=== PATIENT | female | born 1960 | race Caucasian/White ===

== ENCOUNTER 2018-09-02 21:58 | Emergency (ER) | payer MEDICARE ==
--- OUTSIDE RECORDS SUMMARY | 2018-09-02 22:01 | XMS REPORT ---
:1960 Author Organization eClinicalWorks Care Team Providers Name Role Phone Mcbride, Na Provider Role Unavailable Allergies, Adverse Reactions, Alerts Substance Reaction Event Type codeine Info Not Available Drug Allergy Keflex Info Not Available Drug Allergy Iodine Info Not Available Drug Allergy Bactrim DS Info Not Available Drug Allergy Amoxicillin Info Not Available Drug Allergy Problems Problem Type Condition Code Onset Dates Condition Status Problem Benign essential HTN I10 Active Problem Surgical menopause N95.8 Active Problem Depression with anxiety F41.8 Active Problem Pituitary adenoma D35.2 Active Problem Encounter for long-term current use Z79.899 Active of medication Problem Hypokalemia E87.6 Active Problem Osteoarthritis of multiple joints M15.9 Active Problem Allergic rhinitis, seasonal J30.2 Active Problem Mild memory disturbance R41.3 Active Problem Carpal tunnel syndrome G56.00 Active Assessment Primary osteoarthritis involving M15.0 Active multiple joints Assessment Mild memory disturbance R41.3 Active Assessment Encounter for long-term current use Z79.899 Active of medication Assessment Hypokalemia E87.6 Active Assessment Seizure disorder G40.909 Active Assessment Benign essential HTN I10 Active Assessment Depression with anxiety F41.8 Active Problem Primary osteoarthritis involving M15.0 Active multiple joints Assessment Pituitary adenoma D35.2 Active Problem Seizure disorder G40.909 Active Medications Medication Code Code Instructions Start End Status Dosage System Date Lodine [facility] 29939971346 400 MG Orally February Inactive 1 tablet Twice a day food 2017 Xanax [facility] 40310856468 0.5 MG Orally Inactive 1 tablet Twice a day Propranolol HCl [facility] 84163175481 40 MG Orally at Active 0.5 hs tablet Tiazac [facility] 78729189359 300 MG Orally February Active 1 capsule Once a day 2017 Keppra [facility] 40477046121 750 MG Orally Active 1 tablet Twice a day Zoloft [facility] 19421036830 100 MG Orally Active 1 tablet Once a day Spironolactone [facility] 96242140212 50 MG Orally Active 1 tablet twice a day with food Tiazac [facility] 64212635443 360 MG Orally Inactive 1 capsule Once a day Results No Known Results Summary Purpose eClinicalWorks Submission
--- OUTSIDE RECORDS SUMMARY | 2018-09-02 22:01 | XMS REPORT ---
:1960 Author Organization e[employer]Works Care Team Providers Name Role Phone Mcbride, Na Provider Role Unavailable Allergies No Known Allergies Problems Problem Type Condition Code Onset Dates Condition Status Problem Benign essential HTN I10 Active Problem Surgical menopause N95.8 Active Problem Depression with anxiety F41.8 Active Problem Primary osteoarthritis involving M15.0 Active multiple joints Problem Seizure disorder G40.909 Active Problem Pituitary adenoma D35.2 Active Problem Encounter for long-term current use Z79.899 Active of medication Problem Hypokalemia E87.6 Active Problem Osteoarthritis of multiple joints M15.9 Active Problem Allergic rhinitis, seasonal J30.2 Active Problem Mild memory disturbance R41.3 Active Problem Carpal tunnel syndrome G56.00 Active Medications No Known Medications Results No Known Results Summary Purpose eClinicalWorks Submission
--- OUTSIDE RECORDS SUMMARY | 2018-09-02 22:01 | XMS REPORT ---
[...] Problem Carpal tunnel syndrome G56.00 Active Medications Medication Code System Code Instructions Start End Date Status Dosage Date [facility] [id number] 180 MG Orally May 13, Active 1 capsule Once a day 2018 Results No Known Results Summary Purpose [employer] Submission
--- OUTSIDE RECORDS SUMMARY | 2018-09-02 22:01 | XMS REPORT ---
[...] Problem Carpal tunnel syndrome G56.00 Active Assessment Seizure disorder G40.909 Active Problem Primary osteoarthritis involving M15.0 Active multiple joints Problem Seizure disorder G40.909 Active Medications Medication Code System Code Instructions Start Date End Date Status Dosage [facility] 19108044088 750 MG Orally Active 1 tablet Twice a day Results No Known Results Summary Purpose eClinicalWorks Submission
--- OUTSIDE RECORDS SUMMARY | 2018-09-02 22:01 | XMS REPORT ---
[...] Problem Carpal tunnel syndrome G56.00 Active Assessment Depression with anxiety F41.8 Active Problem Primary osteoarthritis involving M15.0 Active multiple joints Problem Seizure disorder G40.909 Active Medications Medication Code System Code Instructions Start End Date Status Dosage Date Tiazac [facility] 16522207224 180 MG Orally May 13, Active 1 capsule Once a day 2017 Zoloft [facility] 88715761651 100 MG Orally Active 1 to 1/2 Once a day tablet Results No Known Results Summary Purpose eClinicalWorks Submission
--- OUTSIDE RECORDS SUMMARY | 2018-09-02 22:01 | XMS REPORT ---
[...] Instructions Start Date End Date Status Dosage Kera [facility] 29164651793 500 MG Orally Active 1 tablet Twice a day Results No Known Results Summary Purpose eClinicalWorks Submission
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
[2018-09-02] MEDS ORDERED: POTASSIUM 25 MEQ EFFERV TAB ONE (22:34)
[2018-09-02] MEDS ORDERED: KCL 20 MEQ/100 mL IVPB 20 MEQ/100 ML BAG IV ONE (22:34)
[2018-09-02] MEDS ORDERED: NA CHLORIDE 0.9% 250 ML ONE (22:35)
[2018-09-03] MEDS ORDERED: KCL 20 MEQ/100 mL IVPB 20 MEQ/100 ML BAG IV ONE (01:47)
[2018-09-03] MEDS ORDERED: NA CHLORIDE 0.9% 250 ML ONE (01:47)
[2018-09-03] MEDS ORDERED: POTASSIUM CL SA 10 MEQ TAB PO ONE (06:54)
[2018-09-03] MEDS ORDERED: MAGNESIUM SULFATE 1 gm IVPB 1 GM/100 ML BAG IV ONE (06:57)
--- NOTE | 2018-09-03 09:02 | EDPHYS ---
Physician Documentation [facility] Name: Mirna Celestin Age: 57 yrs Sex: Female : 1960 Arrival Date: 09/02/2018 Time: 22:00 Bed 15 Private MD: ED Physician Aurelio Doss HPI: 09/02 22:24 This 57 yrs old Female presents to ER via Wheelchair with complaints of pkl Abnormal Labs. 22:24 Patient had blood tests done earlier today. Was told her K+ level was 2.7 and to go to pkl ER to replace her K+.. Historical: - Allergies: 22:19 Codeine; jd3 22:19 Keflex; jd3 22:19 PENICILLINS; jd3 22:19 Talwin; jd3 22:19 Sulfa (Sulfonamide Antibiotics); jd3 - Home Meds: 22:19 Vitamin D Oral [Active]; sertraline 100 mg oral tab 1.5 tabs once daily [Active]; jd3 levetiracetam 500 mg oral tab 1 tab 2 times per day [Active]; diltiazem HCl 180 mg Oral cpER [Active]; Allergy Medication oral oral [Active]; - PMHx: 22:19 Anxiety; tumor on pituitary; Hypertension; Arthritis; Seizures; jd3 - PSHx: 22:19 bilateral wrist sx; jd3 - Immunization history:: Adult Immunizations up to date. - Social history:: Smoking status: Patient/guardian denies using tobacco. - Ebola Screening: : Patient negative for fever greater than or equal to 101.5 degrees Fahrenheit, and additional compatible Ebola Virus Disease symptoms. ROS: 22:24 Eyes: Negative for injury, pain, redness, and discharge, ENT: Negative for injury, pkl pain, and discharge, Neck: Negative for injury, pain, and swelling, Cardiovascular: Negative for chest pain, palpitations, and edema, Respiratory: Negative for shortness of breath, cough, wheezing, and pleuritic chest pain, Abdomen/GI: Negative for abdominal pain, nausea, vomiting, diarrhea, and constipation, Back: Negative for injury and pain, : Negative for injury, bleeding, discharge, and swelling, MS/Extremity: Negative for injury and deformity, Skin: Negative for injury, rash, and discoloration, Neuro: Negative for headache, weakness, numbness, tingling, and seizure. Exam: 22:24 Head/Face: Normocephalic, atraumatic. Eyes: Pupils equal round and reactive to light, pkl extra-ocular motions intact. Lids and lashes normal. Conjunctiva and sclera are non-icteric and not injected. Cornea within normal limits. Periorbital areas with no swelling, redness, or edema. ENT: Nares patent. No nasal discharge, no septal abnormalities noted. Tympanic membranes are normal and external auditory canals are clear. Oropharynx with no redness, swelling, or masses, exudates, or evidence of obstruction, uvula midline. Mucous membranes moist. Neck: Trachea midline, no thyromegaly or masses palpated, and no cervical lymphadenopathy. Supple, full range of motion without nuchal rigidity, or vertebral point tenderness. No Meningismus. Chest/axilla: Normal chest wall appearance and motion. Nontender with no deformity. No lesions are appreciated. Cardiovascular: Regular rate and rhythm with a normal S1 and S2. No gallops, murmurs, or rubs. Normal PMI, no JVD. No pulse deficits. Respiratory: Lungs have equal breath sounds bilaterally, clear to auscultation and percussion. No rales, rhonchi or wheezes noted. No increased work of breathing, no retractions or nasal flaring. Abdomen/GI: Soft, non-tender, with normal bowel sounds. No distension or tympany. No guarding or rebound. No evidence of tenderness throughout. Back: No spinal tenderness. No costovertebral tenderness. Full range of motion. Skin: Warm, dry with normal turgor. Normal color with no rashes, no lesions, and no evidence of cellulitis. MS/ Extremity: Pulses equal, no cyanosis. Neurovascular intact. Full, normal range of motion. Neuro: Awake and alert, GCS 15, oriented to person, place, time, and situation. Cranial nerves II-XII grossly intact. Motor strength 5/5 in all extremities. Sensory grossly intact. Cerebellar exam normal. Normal gait. Vital Signs: 22:20 BP 108 / 77; Pulse 55; Resp 18 S; Temp 98.8(O); Pulse Ox 97% on R/A; Weight 78.93 kg jd3 (R); Height 5 ft. 3 in. (160.02 cm) (R); Pain 0/10; 23:24 BP 116 / 72; Pulse 50; Resp 16 S; Pulse Ox 95% on R/A; Pain 0/10; jd3 09/03 00:17 BP 119 / 76 LA Supine (auto/lg); Pulse 45 MON; Resp 14 S; Pulse Ox 96% on R/A; ds4 01:11 BP 118 / 68 LA Supine (auto/lg); Pulse 47 MON; Resp 14 S; Pulse Ox 96% on R/A; ds4 02:10 BP 120 / 53 LA Supine (auto/reg); Pulse 46 MON; Resp 14 S; Pulse Ox 96% on R/A; ds4 02:38 BP 121 / 60; Pulse 47; Resp 14 S; Pulse Ox 95% on R/A; bb 03:27 BP 121 / 57; Pulse 46; Resp 18 S; Pulse Ox 94% on R/A; bb 03:49 BP 122 / 62 LA Supine (auto/reg); Pulse 47 MON; Resp 18 S; Pulse Ox 96% on R/A; ds4 04:15 BP 124 / 65; Pulse 47; Resp 18 S; Pulse Ox 95% on R/A; bb 06:30 BP 124 / 63; Pulse 43; Resp 18 S; Pulse Ox 99% on R/A; Pain 0/10; cc3 07:30 BP 146 / 67; Pulse 43; Resp 16 S; Pulse Ox 97% on R/A; Pain 0/10; aa5 08:30 BP 128 / 62; Pulse 48; Resp 16 S; Pulse Ox 99% on R/A; Pain 0/10; aa5 09/02 22:20 Body Mass Index 30.82 (78.93 kg, 160.02 cm) jd3 MDM: 09/02 22:02 Patient medically screened. pkl 09/03 08:58 Differential Diagnosis hypokalemia, weakness. Data reviewed: vital signs, nurses notes, international affairs vice president test result(s), and as a result, I will discharge patient. Counseling: I had a detailed discussion with the patient and/or guardian regarding: the historical points, exam findings, and any diagnostic results supporting the discharge/admit diagnosis, lab results, the need for outpatient follow up, to return to the emergency department if symptoms worsen or persist or if there are any questions or concerns that arise at home. Special discussion: I discussed with the patient/guardian in detail that at this point there is no indication for admission to the hospital. It is understood, however, that if the symptoms persist or worsen the patient needs to return immediately for re-evaluation. Based on the history and exam findings, there is no indication for further emergent testing or inpatient evaluation. I discussed with the patient/guardian the need to see the primary care provider for further evaluation of the symptoms. ED course: Pt with longstanding hypokalemia, for years, recently taken off of spironolactone, doesn't take potassium at home, potassium checked several times by assistant shift supervisor, hospitalist consulted, did not want to admit when asked by Dr. Mukherjee, reassessed by me, states feels much better, weakness has improved, can tell when potassium is low and feels better now, is ambulating to bathroom, potassium at last check 2.4, but has been given multiple rounds of IV and PO potassium as well as magnesium, is asymptomatic, and after long discussion with patient, will dc home with oral potassium prescription and pcp f/u this week for repeat K+.. 09/03 01:01 Order name: Potassium; Complete Time: 01:36 bb 09/03 03:49 Order name: Potassium; Complete Time: 04:56 ds4 09/03 04:59 Order name: Potassium; Complete Time: 06:34 ds4 09/03 06:41 Order name: Potassium; Complete Time: 08:50 bb Administered Medications: 09/02 22:41 Drug: Potassium Chloride 20 mEq Route: IV; Rate: calculated rate; Site: right jd3 antecubital; 09/03 00:50 Follow up: IV Status: Completed infusion; IV Intake: 100ml 09/02 22:41 Drug: Potassium Effervescent Tablet 50 mEq Route: PO; jd3 09/03 00:50 Follow up: Response: No adverse reaction bb 09/02 22:41 Drug: NS 0.9% 250 ml Route: IV; Rate: calculated rate; Site: right antecubital; bb 09/03 00:54 Follow up: IV Status: Completed infusion; IV Intake: 250ml bb 01:39 Drug: Potassium Chloride 20 mEq Route: IV; Rate: calculated rate; Site: right bb antecubital; 03:45 Follow up: IV Status: Completed infusion; IV Intake: 100ml bb 01:39 Drug: NS 0.9% 250 ml Route: IV; Rate: calculated rate; Site: right antecubital; bb 03:45 Follow up: IV Status: Completed infusion; IV Intake: 200ml bb 06:50 Drug: Potassium Chloride 20 mEq Route: PO; cc3 06:57 Drug: Magnesium Sulfate 1 grams Route: IVPB; Infused Over: 1 hrs; Site: right cc3 antecubital; Disposition: 09/03/18 09:01 Discharged to Home. Impression: Hypokalemia. - Condition is Stable. - Discharge Instructions: Potassium Content of Foods, Hypokalemia. - Prescriptions for Potassium Chloride 10 mEq Oral Capsule, Sustained Release - take 1 tablet by ORAL route every 12 hours; 10 tablet. - Medication Reconciliation Form, Thank You Letter, Antibiotic Education, Prescription Opioid Use form. - Follow up: Private Physician; When: 5 - 6 days; Reason: Recheck today's complaints, Re-evaluation by your physician. - Problem is chronic. - Symptoms have improved. Signatures: Dispatcher [employer] EDMS Maximo Mukherjee MD MD pkl Sara Barbosa RN RN bb Aurelio Doss MD MD rn Calderon, Audri, RN RN aa5 Neal Moseley, AUTOMOTIVE TEACHER AUTOMOTIVE TEACHER pm1 [place] Neri RN RN jd3 Deepika Mcleod cc3 Corrections: (The following items were deleted from the chart) 09:58 09:01 09/03/2018 09:01 Discharged to Home. Impression: Hypokalemia. Condition is aa5 Stable. Forms are Medication Reconciliation Form, Thank You Letter, Antibiotic Education, Prescription Opioid Use. Follow up: Private Physician; When: 5 - 6 days; Reason: Recheck today's complaints, Re-evaluation by your physician. Problem is chronic. Symptoms have improved. rn
--- NOTE | 2018-09-03 09:02 | ER ---
Nurse's Notes [facility] Name: Mirna Celestin Age: 57 yrs Sex: Female : 1960 Arrival Date: 09/02/2018 Time: 22:00 Bed 15 Private MD: Diagnosis: Hypokalemia Presentation: 09/02 22:14 Presenting complaint: Patient states: "I was called by my doctors office with a low jd3 potassoim level of 2.??.". Transition of care: patient was not received from another setting of care. Onset of symptoms was September 02, 2018. Risk Assessment: Do you want to hurt yourself or someone else? Patient reports no desire to harm self or others. Initial Sepsis Screen: Does the patient meet any 2 criteria? No. Patient's initial sepsis screen is negative. Does the patient have a suspected source of infection? No. Patient's initial sepsis screen is negative. Care prior to arrival: None. 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 - Social history:: Smoking status: Patient/guardian denies using tobacco. - Ebola Screening: : Patient negative for fever greater than or equal to 101.5 degrees Fahrenheit, and additional compatible Ebola Virus Disease symptoms. Screenin:23 Abuse screen: Denies threats or abuse. Nutritional screening: No deficits noted. jd3 Tuberculosis screening: No symptoms or risk factors identified. Fall Risk Ambulatory Aid- Crutches/Cane/Walker (15 pts). Gait- Weak (10 pts.). Mental Status- Oriented to own ability (0 pts). Total Damon Fall Scale indicates Low Risk Score (25-44 pts). Fall prevention measures have been instituted. Side Rails Up X 2 Placed close to Nursing Station Frequent Obs/Assesments occuring Family Present and informed to notify staff if they need to leave bedside. Assessment: 22:21 General: Appears in no apparent distress. comfortable, Behavior is calm, cooperative, jd3 appropriate for age. Pain: Denies pain. Neuro: Level of Consciousness is awake, alert, obeys commands, Oriented to person, place, time, situation. Cardiovascular: Denies chest pain, Capillary refill < 3 seconds Patient's skin is warm and dry. Respiratory: Airway is patent Respiratory effort is even, unlabored, Respiratory pattern is regular, symmetrical, Denies cough, shortness of breath. GI: No signs and/or symptoms were reported involving the gastrointestinal system. : No signs and/or symptoms were reported regarding the genitourinary system. EENT: No signs and/or symptoms were reported regarding the EENT system. Derm: Skin is intact, Skin is dry, Skin is normal, Skin temperature is warm. Musculoskeletal: Circulation, motion, and sensation intact. Range of motion: intact in all extremities. 23:25 Reassessment: Patient appears in no apparent distress at this time. Patient and/or jd3 family updated on plan of care and expected duration. Pain level reassessed. Patient is alert, oriented x 3, equal unlabored respirations, skin warm/dry/pink. 09/03 00:26 Reassessment: Patient and/or family updated on plan of care and expected duration. Pain bb level reassessed. Patient is alert, oriented x 3, equal unlabored respirations, skin warm/dry/pink. pt resting quietly IV site intact, patent, with fluids infusing. 01:23 Reassessment: Patient and/or family updated on plan of care and expected duration. Pain bb level reassessed. Patient is alert, oriented x 3, equal unlabored respirations, skin warm/dry/pink. pt awaiting repeat potassium results. 02:37 Reassessment: Patient and/or family updated on plan of care and expected duration. Pain bb level reassessed. pt resting quietly, eyes closed, arouses easily IV intact, patent with fluids infusing awaiting completion of IV fluids and repeat potassium. 03:28 Reassessment: No changes from previously documented assessment. bb 05:00 Reassessment: Patient and/or family updated on plan of care and expected duration. Pain bb level reassessed. Patient is alert, oriented x 3, equal unlabored respirations, skin warm/dry/pink. awaiting lab results. 06:25 Reassessment: Patient appears in no apparent distress at this time. Patient and/or cc3 family updated on plan of care and expected duration. Pain level reassessed. Patient is alert, oriented x 3, equal unlabored respirations, skin warm/dry/pink. Received this female patient as a case of hypokalemia. Patient awake, conscious and coherent hooked to wire photo operator with vital signs taken and recorded. With IV cannula gauge 20 at the right ACV saline locked. Patient denies pain at this time. 07:10 Reassessment: Pt resting in bed with eyes closed at this time. Awakens easily to verbal aa5 stimuli. Sinus bradycardia on monitor at this time, lungs CTA. Pt denies any complaints at this time. Pt notified of wait time for repeat potassium to be drawn at 0800, pt verbalized understanding. Bed in low position, side rails x 2, call boyd within reach. . 08:00 Reassessment: Repeat potassium drawn by air technician and sent to lab . aa5 08:47 Reassessment: K 2.4, Dr. Doss notified. hb 09:15 Reassessment: Patient is alert, oriented x 3, equal unlabored respirations, skin aa5 warm/dry/pink. Vital Signs: 09/02 22:20 BP 108 / 77; Pulse 55; Resp 18 S; Temp 98.8(O); Pulse Ox 97% on R/A; Weight 78.93 kg jd3 (R); Height 5 ft. 3 in. (160.02 cm) (R); Pain 0/10; 23:24 BP 116 / 72; Pulse 50; Resp 16 S; Pulse Ox 95% on R/A; Pain 0/10; jd3 09/03 00:17 BP 119 / 76 LA Supine (auto/lg); Pulse 45 MON; Resp 14 S; Pulse Ox 96% on R/A; ds4 01:11 BP 118 / 68 LA Supine (auto/lg); Pulse 47 MON; Resp 14 S; Pulse Ox 96% on R/A; ds4 02:10 BP 120 / 53 LA Supine (auto/reg); Pulse 46 MON; Resp 14 S; Pulse Ox 96% on R/A; ds4 02:38 BP 121 / 60; Pulse 47; Resp 14 S; Pulse Ox 95% on R/A; bb 03:27 BP 121 / 57; Pulse 46; Resp 18 S; Pulse Ox 94% on R/A; bb 03:49 BP 122 / 62 LA Supine (auto/reg); Pulse 47 MON; Resp 18 S; Pulse Ox 96% on R/A; ds4 04:15 BP 124 / 65; Pulse 47; Resp 18 S; Pulse Ox 95% on R/A; bb 06:30 BP 124 / 63; Pulse 43; Resp 18 S; Pulse Ox 99% on R/A; Pain 0/10; cc3 07:30 BP 146 / 67; Pulse 43; Resp 16 S; Pulse Ox 97% on R/A; Pain 0/10; aa5 08:30 BP 128 / 62; Pulse 48; Resp 16 S; Pulse Ox 99% on R/A; Pain 0/10; aa5 09/02 22:20 Body Mass Index 30.82 (78.93 kg, 160.02 cm) j ED Course: 09/02 22:00 Patient arrived in ED. ds1 22:01 Maximo Mukherjee MD is Attending Physician. pkl 22:02 New Neri RN is Primary Nurse. jd3 22:15 Triage completed. jd3 22:21 Arm band placed on. jd3 22:23 Patient has correct armband on for positive identification. Bed in low position. Call j light in reach. Side rails up X 1. Adult w/ patient. 22:38 Inserted saline lock: 20 gauge in right antecubital area, using aseptic technique. ds4 Blood collected. Missed attempt(s): 20 gauge in right antecubital area. Bleeding controlled, band aid applied, catheter tip intact. 09/03 01:11 Potassium Sent. ds4 04:12 Potassium Sent. ds4 04:24 Potassium Sent. ds4 05:48 Notified ED physician of a critical lab result(s). potassium of 2.6 Dr Mukherjee notified. bb 07:10 Report given to LOVE [place]. cc3 07:10 Report received from LOVE Poe. aa5 07:36 Attending Physician role handed off by Maximo Mukherjee MD rn 07:36 Aurelio Doss MD is Attending Physician. rn 08:05 Repeat lab(s) drawn. by oh, sent to lab. 3 09:15 IV discontinued, intact, bleeding controlled, No redness/swelling at site. Pressure aa5 dressing applied. 09:15 No provider procedures requiring assistance completed. aa5 Administered Medications: 09/02 22:41 Drug: Potassium Chloride 20 mEq Route: IV; Rate: calculated rate; Site: right jd3 antecubital; 09/03 00:50 Follow up: IV Status: Completed infusion; IV Intake: 100ml bb 09/02 22:41 Drug: Potassium Effervescent Tablet 50 mEq Route: PO; jd3 09/03 00:50 Follow up: Response: No adverse reaction bb 09/02 22:41 Drug: NS 0.9% 250 ml Route: IV; Rate: calculated rate; Site: right antecubital; bb 09/03 00:54 Follow up: IV Status: Completed infusion; IV Intake: 250ml bb 01:39 Drug: Potassium Chloride 20 mEq Route: IV; Rate: calculated rate; Site: right bb antecubital; 03:45 Follow up: IV Status: Completed infusion; IV Intake: 100ml bb 01:39 Drug: NS 0.9% 250 ml Route: IV; Rate: calculated rate; Site: right antecubital; bb 03:45 Follow up: IV Status: Completed infusion; IV Intake: 200ml bb 06:50 Drug: Potassium Chloride 20 mEq Route: PO; cc3 06:57 Drug: Magnesium Sulfate 1 grams Route: IVPB; Infused Over: 1 hrs; Site: right cc3 antecubital; Intake: 00:50 IV: 100ml; Total: 100ml. bb 00:54 IV: 250ml; Total: 350ml. bb 03:45 IV: 100ml; Total: 450ml. bb 03:45 IV: 200ml; Total: 650ml. bb Outcome: 09:01 Discharge ordered by . rn 09:18 Discharged to home via wheelchair, with family. aa5 09:18 Condition: stable 09:18 Discharge instructions given to patient, Instructed on discharge instructions, follow up and referral plans. medication usage, Demonstrated understanding of instructions, follow-up care, medications, Prescriptions given X 1. 09:20 Patient left the ED. aa5 Signatures: Maximo Mukherjee MD MD pkl Sanford, Demi ds1 Sara Barbosa RN RN bb Aurelio Doss MD MD rn Calderon, Audri, RN RN aa5 Jorge A Wilburn ds4 Francia Arshad RN RN Sanna Cooper 3 New Neri RN RN jd3 Deepika Mcleod cc3 Corrections: (The following items were deleted from the chart) 10:12 09:58 Patient left the ED. aa5 aa5
[2018-09-03] MEDS ORDERED: LEVALBUTEROL 1.25 MG/3 ML NEB ONE (09:38)
[2018-09-03 10:03] VITALS: TEMP 98.8
[2018-09-03 10:14] VITALS: BP 146/67; O2SAT 97
== END 2018-09-03 09:58 | disposition home or self-care (01) ==
LOC: ER 21:58
DX: E87.6 Hypokalemia (principal); I10 Essential (primary) hypertension; F41.9 Anxiety disorder, unspecified; R56.9 Unspecified convulsions; Z88.6 Allergy status to analgesic agent; Z88.0 Allergy status to penicillin; Z88.2 Allergy status to sulfonamides; Z88.1 Allergy status to other antibiotic agents
CPT/HCPCS: 36415; 84132 ×4; 96365; 96366; 96375; 99284; J3475

== ENCOUNTER 2019-01-05 08:53 | Emergency (ER) | payer MEDICARE ==
--- OUTSIDE RECORDS SUMMARY | 2019-01-05 08:55 | XMS REPORT | Continuity of Care Document ---
:1960 Author Organization Interface Problems Problem Status Onset Date Classification Date Comments Source Reported Medications Medication Details Route Status Patient Ordering Order Source Instructions Provider Date Allergies, Adverse Reactions, Alerts Substance Category Reaction Severity Reaction Status Date Comments Source type Reported Immunizations Immunization Date Given Site Status Last Updated Comments Source Results Order Results Value Reference Date Interpretation Comments Source Name Range Vital Signs Vital Sign Value Date Comments Source Encounters Location Location Encounter Encounter Reason Attending ADM DC Status Source Details Type Number For Provider Date Date Visit Outpatient [id number] MAICO 08/31 [facility] [place] [id number] MAICO 10/12 [facility] [place] Out[place] [id number] DONG CARA 11/01 [facility] [place] Outpatient [id number] CRISTINA 11/01 [facility] [place] Outpatient [id number] MAICO 11/24 [facility] [place] [id number] MAICO 12/02 [facility] [place] Outpatient [id number] MAICO 02/02 [facility] [place] Procedures Procedure Code Date Perfomer Comments Source
--- OUTSIDE RECORDS SUMMARY | 2019-01-05 08:55 | XMS REPORT ---
[...] Start End Status Dosage System Date Lodine [facility] [id number] 400 MG Orally February Inactive 1 tablet Twice a day food 2017 Xanax [facility] 68546332758 0.5 MG Orally Inactive 1 tablet Twice a day Propranolol HCl [facility] 72268272111 40 MG Orally at Active 0.5 hs tablet Tiazac [facility] 76160283324 300 MG Orally February Active 1 capsule Once a day 2017 Keppra [facility] 31698585028 750 MG Orally Active 1 tablet Twice a day Zoloft [facility] 08835593169 100 MG Orally Active 1 tablet Once a day Spironolactone [facility] 49396972154 50 MG Orally Active 1 tablet twice a day with food Tiazac [facility] 88827597527 360 MG Orally Inactive 1 capsule Once a day Results No Known Results Summary Purpose eClinicalWorks Submission
--- OUTSIDE RECORDS SUMMARY | 2019-01-05 08:55 | XMS REPORT | Clinical Summary ---
:1960 Author Organization [facility] Address [address] [place] [address] Care Team Providers Name Role Phone Kianna White MD Primary Care Provider Allergies Active Allergy Reactions Severity Noted Date Comments Codeine 07/02/2016 Cephalexin 06/22/2017 Other 07/02/2016 PENTAZOCINE Penicillins 07/02/2016 Pentazocine Lactate 07/02/2016 Sulfa (Sulfonamide Antibiotics) 07/02/2016 Medications Medication Sig Dispensed Refills Start Date End Date Status sertraline (ZOLOFT) 50 Take 50 mg by 0 Active MG tablet mouth. spironolactone Take 25 mg by 0 Active (ALDACTONE) 25 MG mouth. tablet diltiazem CD (CardIZEM Take 360 mg by 0 Active CD) 360 MG 24 hr mouth. capsule cetirizine (ZyrTEC) 10 Take 10 mg by 0 Active MG tablet mouth. propranolol LA (INDERAL Take 60 mg by 0 Active LA) 60 MG 24 hr capsule mouth daily. levETIRAcetam (KEPPRA) Take 500 mg by 0 01/05/2017 01/05/2018 500 MG tablet mouth. Active Problems Problem Noted Date H/O: pituitary tumor 07/15/2017 Overview: Patient states she had a scan done last year at [facility] - documented a tumor. Unclear and no [...] against use of of marijuana. Seizure disorder 07/02/2016 Overview: Apparently one year ago she [...] RECORDS COPIED FROM DR. CARTER NOTE [facility] NEURO: She was in [facility] [place] for seizure activity. Not from there states [...] Assigned at Date Recorded Not on file Job Start Date Occupation Industry Not on file Not on file Not on file Travel History Travel Start Travel End No recent travel history available. Last Filed Vital Signs Not on file Plan of Treatment Health Maintenance Due Date Last Done Comments CERVICAL CANCER SCREENING 1979 BREAST CANCER SCREENING 2008 COLON CANCER SCREENING 2008 SHINGLES VACCINES (1 of 2) 2008 INFLUENZA VACCINE 06/29/2018 Results Not on fileafter 01/04/2018 Insurance Payer Benefit Plan / Group Subscriber ID Type Phone Address MEDICARE MEDICARE PART A AND B xxxxxxxxxx Medicare [place], [place] (Home) [place] [address] Advance Directives Patient has advance care planning documents on file. For more information, please contact:[place] [address]
--- OUTSIDE RECORDS SUMMARY | 2019-01-05 08:56 | XMS REPORT ---
[...] Instructions Start End Date Status Dosage Date [facility] [place] [id number] 180 MG Orally May 13, Active 1 capsule Once a day 2018 Results No Known Results Summary Purpose eClinicalMegaBits Submission
--- OUTSIDE RECORDS SUMMARY | 2019-01-05 08:56 | XMS REPORT ---
[...] Instructions Start Date End Date Status [facility]osage [facility] [id number] 750 MG Orally Active 1 tablet Twice a day Results No Known Results Summary Purpose eClinicalWorks Submission
--- OUTSIDE RECORDS SUMMARY | 2019-01-05 08:56 | XMS REPORT ---
[...] Start End Date Status Dosage Date Tiazac [facility] [id number] 180 MG Orally May 13, Active 1 capsule Once a day 2017 Zoloft [facility] 86366224599 100 MG Orally Active 1 to 1/2 Once a day tablet Results No Known Results Summary Purpose eClinicalWorks Submission
--- OUTSIDE RECORDS SUMMARY | 2019-01-05 08:56 | XMS REPORT ---
[...] Start Date End Date Status Dosage [facility] [id number] 500 MG Orally Active 1 tablet Twice a day Results No Known Results Summary Purpose eClinicalWorks Submission
[2019-01-05 09:39] LABS: Urine Blood 2+ (NEG); Urine Glucose NEGATIVE (NEG); Urine Protein 3+ (NEG)
[2019-01-05] MEDS ORDERED: FENTANYL CITR 100 MCG/2 ML ONE ×2 (09:50→11:45)
[2019-01-05] MEDS ORDERED: ONDANSETRON 4 MG/2 ML VIAL ONE (09:51)
[2019-01-05 10:07] LABS: Absolute Lymphocytes (CBC) 0.4 K/uL (0.7-4.9); Absolute Monocytes 0.6 K/uL (0.1-1.3); Absolute Neutrophil 6.9 K/uL (1.8-8.0); Basophils % 0.5 % (0-1.3); Eosinophils % 0.1 % (0-4.4); Hematocrit 36.2 % (36.0-45.0); Lymphocytes % 5.2 % (15.3-44.8); MPV 8.2 fL (7.6-11.3); Monocytes % 7.1 % (3.3-12.3)
--- NOTE | 2019-01-05 10:21 | RAD REPORT ---
EXAM DESCRIPTION: CT - Abdomen Pelvis Wo Contrast - 01/05/2019 10:09 am CLINICAL HISTORY: Abdominal pain. R side abd/back pain COMPARISON: No comparisons TECHNIQUE: CT imaging of the abdomen and pelvis was performed without contrast. Solid organ, bowel a nd vascular assessment is limited due to lack of IV and oral contrast. All CT scans are performed using dose optimization technique as appropriate and may include automated exposure control or mA/KV adjustment according to patient size. FINDINGS: The lower lung espinosa are clear. The liver demonstrates no focal mass or intrahepatic biliary dilatation. The spleen, pancreas, the le ft kidney show no significant abnormality. The right kidney contains a nonobstructing 7 mm stone.21 m m right adrenal mass most compatible with a benign adenoma and left adrenal thickening is present. No bowel obstruction, free air, free fluid or abscess. The appendix is normal. 6.9 x 6.1 cm left ovarian cystic lesion is seen. Multilevel degenerative changes are present throughout the lumbar spine. IMPRESSION: 6.9 x 6.1 cm left ovarian cystic lesion is present. Pelvic ultrasound followup may be of value. 7 mm nonobstructing right renal stone. Right adrenal adenoma. A limited non-contrast examination was performed as detailed.
[2019-01-05 10:36] LABS: Albumin 3.6 g/dL (3.4-5.0); Bilirubin Direct 0.2 mg/dL (0-0.2); Bilirubin Total 0.7 mg/dL (0.2-1.0); Potassium 3.4 mmol/L (3.5-5.1); Protein, Total 8.9 g/dL (6.4-8.2)
--- NOTE | 2019-01-05 10:55 | RAD REPORT ---
EXAM DESCRIPTION: US - Abdomen Exam Limited - 01/05/2019 10:21 am CLINICAL HISTORY: ABD PAIN COMPARISON: Abdomen Pelvis Wo Contrast dated 01/05/2019 FINDINGS: The gallbladder demonstrates multiple shadowing gallstones. No pericholecystic fluid or ga llbladder wall thickening. The common bile duct is normal measuring 4 mm. The liver demonstrates no findings of intrahepatic biliary dilatation. IMPRESSION: Cholelithiasis.
[2019-01-05 11:08] LABS: Anisocytosis 1+; Blood Morphology Comment NOTED (NOT SEEN); Platelet Estimate ADEQ; Urine White Blood Cell Casts OK
[2019-01-05 11:09] LABS: Urine Bacteria <20 /HPF (<20); Urine Culture Reflex Order NOT NEEDED; Urine RBC >50 /HPF (NONE SEEN)
[2019-01-05 11:10] LABS: Calcium Oxalate Crystals- Ur MANY (NONE SEEN); Urine Mucus MOD /HPF (NONE SEEN)
[2019-01-05] MEDS ORDERED: KETOROLAC 30 MG/ML INJ ONE (11:45)
--- NOTE | 2019-01-05 12:25 | EDPHYS ---
Physician Documentation [facility] Name: Mirna Celestin Age: 58 yrs Sex: Female : 1960 Arrival Date: 01/05/2019 Time: 08:55 Bed 16 Private MD: Hailee Mcbride ED Physician Tha Garcia HPI: 01/05 12:27 This 58 yrs old Female presents to ER via Ambulatory with complaints of Back wa Pain. 10:19 The symptoms are located in the right flank and lower back. Onset: The symptoms/episode wa began/occurred yesterday. The pain does not radiate. Associated signs and symptoms: Pertinent positives: abdominal pain, vomiting, Pertinent negatives: chest pain, constipation, dysuria, fever, urinary retention, weakness. The problem was sustained from unknown cause. Modifying factors: The patient symptoms are alleviated by nothing, the patient symptoms are aggravated by movement. Severity of symptoms: At their worst the symptoms were moderate, in the emergency department the symptoms are actually worse, moderately. The patient has experienced similar episodes in the past, a few times. The patient has not recently seen a physician. states has a history low potassium and 'kidney problems.". 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 - Social history:: Smoking status: unknown. - Ebola Screening: : Patient negative for fever greater than or equal to 101.5 degrees Fahrenheit, and additional compatible Ebola Virus Disease symptoms Patient denies exposure to infectious person Patient denies travel to an Ebola-affected area in the 21 days before illness onset No symptoms or risks identified at this time. - Family history:: not pertinent. - Hospitalizations: : No recent hospitalization is reported. ROS: 10:23 Constitutional: Negative for fever, chills, and weight loss, Eyes: Negative for injury, wa pain, redness, and discharge, ENT: Negative for injury, pain, and discharge, Neck: Negative for injury, pain, and swelling, Cardiovascular: Negative for chest pain, palpitations, and edema, Respiratory: Negative for shortness of breath, cough, wheezing, and pleuritic chest pain, : Negative for injury, bleeding, discharge, and swelling, MS/Extremity: Negative for injury and deformity, Skin: Negative for injury, rash, and discoloration, Neuro: Negative for headache, weakness, numbness, tingling, and seizure, Psych: Negative for depression, anxiety, suicide ideation, homicidal ideation, and hallucinations. 10:23 Abdomen/GI: Positive for abdominal pain, vomiting, Negative for diarrhea. 10:23 Back: Positive for pain at rest, flank pain, on the right. 10:23 All other systems are negative. Exam: 10:24 Constitutional: This is a well developed, well nourished patient who is awake, alert, wa and in no acute distress. Head/Face: Normocephalic, atraumatic. Eyes: Pupils equal round and reactive to light, extra-ocular motions intact. Lids and lashes normal. Conjunctiva and sclera are non-icteric and not injected. Cornea within normal limits. Periorbital areas with no swelling, redness, or edema. ENT: Nares patent. No nasal discharge, no septal abnormalities noted. Tympanic membranes are normal and external auditory canals are clear. Oropharynx with no redness, swelling, or masses, exudates, or evidence of obstruction, uvula midline. Mucous membranes moist. Neck: Trachea midline, no thyromegaly or masses palpated, and no cervical lymphadenopathy. Supple, full range of motion without nuchal rigidity, or vertebral point tenderness. No Meningismus. Chest/axilla: Normal chest wall appearance and motion. Nontender with no deformity. No lesions are appreciated. Cardiovascular: Regular rate and rhythm with a normal S1 and S2. No gallops, murmurs, or rubs. Normal PMI, no JVD. No pulse deficits. Respiratory: Lungs have equal breath sounds bilaterally, clear to auscultation and percussion. No rales, rhonchi or wheezes noted. No increased work of breathing, no retractions or nasal flaring. Skin: Warm, dry with normal turgor. Normal color with no rashes, no lesions, and no evidence of cellulitis. MS/ Extremity: Pulses equal, no cyanosis. Neurovascular intact. Full, normal range of motion. Neuro: Awake and alert, GCS 15, oriented to person, place, time, and situation. Cranial nerves II-XII grossly intact. Motor strength 5/5 in all extremities. Sensory grossly intact. Cerebellar exam normal. Normal gait. Psych: Awake, alert, with orientation to person, place and time. Behavior, mood, and affect are within normal limits. 10:24 Abdomen/GI: Inspection: abdomen appears normal, Bowel sounds: normal, in all quadrants, Palpation: moderate abdominal tenderness, in the epigastric area and right upper quadrant. 10:24 Back: pain, that is moderate, of the right mid back and right low back. Vital Signs: 09:27 BP 148 / 99; Pulse 80; Resp 16; Temp 98.4(O); Pulse Ox 100% on R/A; Pain 10/10; ls4 MDM: 09:23 Patient medically screened. wa 10:25 Differential diagnosis: Cholelithiasis Hydronephrosis Ureterolithiasis. wa 12:20 Data reviewed: vital signs, nurses notes. Test interpretation: by ED physician or wy midlevel provider: noted for blood. elevated liver enzymes. K 3.4. CT abd/pelvis: L side ovarian cyst. R kidney 7mm stone. adrenal adenoma. no acute process otherwise. RUQ US: gallstones. no acute cholecystitis. Response to treatment: the patient's symptoms have markedly improved after treatment. 12:27 Special discussion: pain improved significantly in ED with interventions. work up did wa not exactly unravel the exact reason for the pain. d/c'd with f/u and advised immediate return if symptoms reoccur and or worsen. 01/05 09:22 Order name: Urine Dipstick--Ancillary (enter results); Complete Time: 10:26 01/05 09:33 Order name: Basic Metabolic Panel; Complete Time: 11:31 wy 01/05 09:33 Order name: CBC with Diff; Complete Time: 12:05 wy 01/05 09:33 Order name: Hepatic Function; Complete Time: 12:05 wy 01/05 09:33 Order name: Lipase; Complete Time: 12:05 wy 01/05 09:39 Order name: Urine Microscopic Only; Complete Time: 12:05 wy 01/05 09:33 Order name: IV Saline Lock; Complete Time: 10:04 wy 01/05 09:33 Order name: US Abdomen Limited; Complete Time: 12:05 wy 01/05 09:33 Order name: CT Abd/Pelvis - Without Cont; Complete Time: 10:25 wy 01/05 10:16 Order name: CBC Smear Scan; Complete Time: 12:05 [facility] 01/05 09:33 Order name: Labs collected and sent; Complete Time: 10:04 wy Administered Medications: 10:03 Drug: fentaNYL (PF) 75 mcg Route: IVP; Site: right antecubital; ls4 11:02 Follow up: Response: No adverse reaction; Marked relief of symptoms; Pain is decreased ls4 10:04 Drug: Zofran 4 mg Route: IVP; Site: right antecubital; ls4 11:02 Follow up: Response: No adverse reaction ls4 11:40 Drug: fentaNYL (PF) 50 mcg Route: IVP; Site: right antecubital; ls4 12:12 Follow up: Response: No adverse reaction; Marked relief of symptoms; Pain is decreased ls4 11:41 Drug: TORadol 15 mg Route: IVP; Site: right antecubital; ls4 12:13 Follow up: Response: No adverse reaction; Marked relief of symptoms; Pain is decreased ls4 Disposition: 01/05/19 12:24 Discharged to Home. Impression: Acute Right Side Back Pain, Acute Right Side Abdominal Pain. - Condition is Stable. - Prescriptions for Zofran 4 mg Oral Tablet - take 1 tablet by ORAL route every 12 hours As needed; 20 tablet. Tramadol 50 mg Oral Tablet - take 1 tablet by ORAL route every 8 hours as needed; 12 tablet. - Medication Reconciliation Form, Thank You Letter, Antibiotic Education, Prescription Opioid Use form. - Follow up: Elmer Del Valle MD; When: 2 - 3 days; Reason: check gallstone for possible gallbladder surgery. - Notes: take medication as prescribed. follow up with your doctor and also the general surgeon for further evaluation but return here immediately if your pain rapidly worsen Signatures: Dispatcher [employer] EDDE Tha Garcia MD MD wa Stewart, Lisa RN RN ls4 Corrections: (The following items were deleted from the chart) 12:46 12:24 01/05/2019 12:24 Discharged to Home. Impression: Acute Right Side Back Pain; ls4 Acute Right Side Abdominal Pain. Condition is Stable. Forms are Medication Reconciliation Form, Thank You Letter, Antibiotic Education, Prescription Opioid Use. Follow up: Elmer Del Valle; When: 2 - 3 days; Reason: check gallstone for possible gallbladder surgery. wa
--- NOTE | 2019-01-05 12:25 | ER ---
Nurse's Notes [facility] Name: Mirna Celestin Age: 58 yrs Sex: Female : 1960 Arrival Date: 01/05/2019 Time: 08:55 Bed 16 Private MD: Hailee Mcbride Diagnosis: Acute Right Side Back Pain;Acute Right Side Abdominal Pain Presentation: 01/05 09:16 Presenting complaint: Patient states: WOKE UP WITH BACK PAIN. I THINK ITS MY KIDNEYS. ls4 Transition of care: patient was not received from another setting of care. Onset of symptoms was January 05, 2019. Risk Assessment: Do you want to hurt yourself or someone else? Patient reports no desire to harm self or others. Initial Sepsis Screen: Does the patient meet any 2 criteria? No. Patient's initial sepsis screen is negative. Does the patient have a suspected source of infection? No. Patient's initial sepsis screen is negative. Care prior to arrival: None. 09:16 Method Of Arrival: Ambulatory ls4 09:16 Acuity: LEE 3 ls4 Triage Assessment: 09:21 General: Appears well groomed, Behavior is anxious, fussy. Pain:. ls4 09:26 Neuro: No deficits noted. Cardiovascular: No deficits noted. Respiratory: No deficits ls4 noted. Musculoskeletal: Circulation, motion, and sensation intact. Capillary refill < 3 seconds, Range of motion: intact in all extremities, PT MOVES ALL EXTREMITIES AND IS INDEPENDENT. 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 - Social history:: Smoking status: unknown. - Ebola Screening: : Patient negative for fever greater than or equal to 101.5 degrees Fahrenheit, and additional compatible Ebola Virus Disease symptoms Patient denies exposure to infectious person Patient denies travel to an Ebola-affected area in the 21 days before illness onset No symptoms or risks identified at this time. - Family history:: not pertinent. - Hospitalizations: : No recent hospitalization is reported. Screenin:27 Abuse screen: Denies threats or abuse. Denies injuries from another. Nutritional ls4 screening: No deficits noted. Tuberculosis screening: No symptoms or risk factors identified. Fall Risk None identified. Assessment: 09:49 Neuro: Oriented to person, place, time, situation. Cardiovascular: No deficits noted. ls4 Respiratory: No deficits noted. GI: No deficits noted. : No deficits noted. Derm: No deficits noted. Vital Signs: 09:27 BP 148 / 99; Pulse 80; Resp 16; Temp 98.4(O); Pulse Ox 100% on R/A; Pain 10/10; ls4 ED Course: 08:55 Patient arrived in ED. as 08:55 Hailee Mcbride MD is Private Physician. as 09:07 Shruti Solano, LOVE is Primary Nurse. ls4 09:20 Triage completed. ls4 09:20 Urine collected: clean catch specimen, cloudy. 5 09:23 Tha Garcia MD is Attending Physician. wa 09:27 Arm band placed on right wrist. ls4 09:28 No provider procedures requiring assistance completed. ls4 09:30 Patient has correct armband on for positive identification. Allergy band placed. Fall ls4 risk band placed. Placed in gown. Bed in low position. Side rails up X 1. Adult w/ patient. 09:30 Pulse ox on. NIBP on. ls4 09:35 Urine Dipstick--Ancillary (enter results) Sent. [facility] 10:03 Initial lab(s) drawn, by mo, sent to lab. Inserted saline lock: 20 gauge in right 5 antecubital area, using aseptic technique. Blood collected. 10:08 CT completed. Patient tolerated procedure well. Patient moved to CT via stretcher. jg6 Patient moved back from CT. 10:15 CT Abd/Pelvis - Without Cont In Process Unspecified. EDMS 10:18 Patient taken to ultrasound. via stretcher. aa4 10:22 Ultrasound completed. Patient moved back from ultrasound. aa4 10:25 US Abdomen Limited In Process Unspecified. EDMS 12:22 Elmer Del Valle MD is Referral Physician. md Administered Medications: 10:03 Drug: fentaNYL (PF) 75 mcg Route: IVP; Site: right antecubital; ls4 11:02 Follow up: Response: No adverse reaction; Marked relief of symptoms; Pain is decreased ls4 10:04 Drug: Zofran 4 mg Route: IVP; Site: right antecubital; ls4 11:02 Follow up: Response: No adverse reaction ls4 11:40 Drug: fentaNYL (PF) 50 mcg Route: IVP; Site: right antecubital; ls4 12:12 Follow up: Response: No adverse reaction; Marked relief of symptoms; Pain is decreased ls4 11:41 Drug: TORadol 15 mg Route: IVP; Site: right antecubital; ls4 12:13 Follow up: Response: No adverse reaction; Marked relief of symptoms; Pain is decreased ls4 Outcome: 12:24 Discharge ordered by MD. real 12:46 Patient left the ED. ls4 Signatures: Dispatcher [employer] EDBre Sena Amanda 4 Selin Herndon 5 Tha Garcia MD MD wa Garcia, Jessica jg6 Stewart, Lisa, RN RN ls4 Corrections: (The following items were deleted from the chart) 11:03 10:33 Response: No adverse reaction ls4 ls4
[2019-01-05 12:59] VITALS: BP 148/99; TEMP 98.4; O2SAT 100
== END 2019-01-05 12:46 | disposition home or self-care (01) ==
LOC: ER 08:53
DX: R10.9 Unspecified abdominal pain (principal); I10 Essential (primary) hypertension; Z88.0 Allergy status to penicillin; Z88.2 Allergy status to sulfonamides; Z88.5 Allergy status to narcotic agent; Z88.8 Allergy status to other drugs, medicaments and biological substances
CPT/HCPCS: 36415; 74176; 76705; 80048; 80076; 83690; 85025; 96374; 96375; 99284; J2405; J3010 ×2; 81003; 81015

== ENCOUNTER 2019-09-19 18:08 | Emergency (ER) | payer MEDICARE ==
[2019-09-19] MEDS ORDERED: ONDANSETRON 4 MG/2 ML VIAL ONE (18:30)
[2019-09-19] MEDS ORDERED: LEVETIRACETAM 500 MG/5 ML VIAL IV ONE (19:12)
[2019-09-19] MEDS ORDERED: NA CHLORIDE 0.9% 100 ML IV ONE (19:12)
[2019-09-19] MEDS ORDERED: NA CHLORIDE 0.9% 1,000 ML ONE (19:12)
--- NOTE | 2019-09-19 19:38 | RAD REPORT ---
EXAM DESCRIPTION: CT - Head Brain Wo Cont - 09/19/2019 7:23 pm CLINICAL HISTORY: Seizure COMPARISON: 2018 MRI TECHNIQUE: Computed axial tomography of the head was obtained. IV contrast was not requested. All CT scans are performed using dose optimization technique as appropriate and may include automated exposure control or mA/KV adjustment according to patient size. FINDINGS: An intracranial bleed is not seen . The ventricles are normal in caliber. No extra-axial fluid collection is noted. 14 millimeter left parasellar mass unchanged Fluid within the sinuses/ mastoids is not seen. IMPRESSION: No acute intracranial abnormality is seen. If patient's symptoms persist MRI of the bra in would be recommended. 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 This probably either represents a meningioma or pituita ry macroadenoma
[2019-09-19 19:39] LABS: Basophils % 0.5 % (0-1.3); Hematocrit 40.2 % (36.0-45.0); Lymphocytes % 16.5 % (15.3-44.8); MPV 8.9 fL (7.6-11.3); RBC Red Blood Cell Count 4.52 M/uL (3.86-4.86)
[2019-09-19 19:57] LABS: ALT/SGPT 14 U/L (12-78); AST/SGOT 12 U/L (15-37); Albumin 3.5 g/dL (3.4-5.0); Alkaline Phosphatase 110 U/L (45-117); BUN Blood Urea Nitrogen 20 mg/dL (7-18); Bicarbonate 22 mmol/L (21-32); Bilirubin Direct < 0.1 mg/dL (0-0.2); Bilirubin Total 0.4 mg/dL (0.2-1.0); Glucose Level 124 mg/dL (74-106); Potassium 3.6 mmol/L (3.5-5.1); Protein, Total 7.4 g/dL (6.4-8.2); Sodium Level 141 mmol/L (136-145)
[2019-09-19 20:07] LABS: Protime INR 0.95
[2019-09-19] MEDS ORDERED: ACETAMINOPHEN 500 MG TAB ONE (20:40)
--- NOTE | 2019-09-19 21:09 | ER ---
Nurse's Notes [facility] Name: Mirna Celestin Age: 58 yrs Sex: Female : 1960 Arrival Date: 09/19/2019 Time: 18:17 Bed 3 Private MD: Diagnosis: Epilepsy and recurrent seizures Presentation: 09/19 18:19 Presenting complaint: EMS states: seizure x 2. Patient has a history of epilepsy, and ss takes Keppra, but told EMS that they cannot afford for her and another family member to have both of their prescriptions filled at the same time, so they take turns filling their prescriptions every other month. This is the patient's month to not have her prescription filled. Transition of care: patient was not received from another setting of care. Onset of symptoms was September 19, 2019. Risk Assessment: Do you want to hurt yourself or someone else? Patient reports no desire to harm self or others. Initial Sepsis Screen: Does the patient meet any 2 criteria? HR > 90 bpm. Does the patient have a suspected source of infection? No. Patient's initial sepsis screen is negative. Care prior to arrival: IV initiated. 22 GA, in the right forearm. 18:19 Acuity: LEE 3 ss 18:19 Method Of Arrival: EMS: [facility] ss 18:23 Care prior to arrival: Medication(s) given: Ativan 2 mg IM. 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 - Social history:: Smoking status: Patient/guardian denies using tobacco. - Ebola Screening: : Patient denies exposure to infectious person Patient denies travel to an Ebola-affected area in the 21 days before illness onset. - Family history:: not pertinent. - Hospitalizations: : No recent hospitalization is reported. Screenin:35 Abuse screen: Denies threats or abuse. Denies injuries from another. Nutritional jl7 screening: No deficits noted. Tuberculosis screening: No symptoms or risk factors identified. Fall Risk No fall in past 12 months (0 pts). Secondary diagnosis (15 points) seizures, IV access (20 points). Ambulatory Aid- None/Bed Rest/Nurse Assist (0 pts). Gait- Normal/Bed Rest/Wheelchair (0 pts) Mental Status- Oriented to own ability (0 pts). Total Damon Fall Scale indicates Low Risk Score (25-44 pts). Fall prevention measures have been instituted. Side Rails Up X 2 Placed close to Nursing Station Frequent Obs/Assesments occuring Family Present and informed to notify staff if they need to leave bedside As available Patient and Family Educated on Fall Prevention Program and strategies. Assessment: 18:35 General: Appears in no apparent distress. uncomfortable, ill, obese, unkempt, Behavior jl7 is calm, cooperative, drowsy. Pain: Complains of pain in SHEIKH. Neuro: Level of Consciousness is awake, obeys commands, Drowsy. Oriented to person, place, time, situation. Cardiovascular: Heart tones S1 S2 present Patient's skin is warm and dry. Respiratory: Airway is patent Respiratory effort is even, unlabored, Respiratory pattern is regular, symmetrical. GI: Reports nausea. : No signs and/or symptoms were reported regarding the genitourinary system. EENT: Oral mucosa is dry. Poor dentition noted. Derm: Skin is dry, Skin is flushed, Skin temperature is warm. 19:10 General: Appears in no apparent distress. uncomfortable, obese, unkempt, Behavior is ao calm, cooperative, drowsy, listless. Pain: Denies pain. Neuro: Level of Consciousness is awake, alert, obeys commands, Oriented to person, place, time, situation, Moves all extremities. Full function Speech is normal. Cardiovascular: Heart tones S1 S2 present Capillary refill Patient's skin is warm and dry. Respiratory: Airway is patent Respiratory effort is even, unlabored, Respiratory pattern is regular, symmetrical. GI: No signs and/or symptoms were reported involving the gastrointestinal system. Reports. : No signs and/or symptoms were reported regarding the genitourinary system. EENT: Derm: Skin is intact, Skin is dry, Skin is flushed, Skin temperature is warm. Musculoskeletal: Range of motion: limited in all extremities. 20:10 Reassessment: Patient appears in no apparent distress at this time. Patient getting ao fluids at this time. 20:44 Reassessment: Patient appears in no apparent distress at this time. Patient IV ao infiltrated. Started a new IV in the left upper arm. 21:42 Reassessment: DC home with . Patient and agree with the POC and to ao follow up with PCP. Patient had no questions. Vital Signs: 18:23 BP 126 / 80; Pulse 94; Resp 17; Pulse Ox 95% on R/A; Weight 81.65 kg; Height 5 ft. 2 ss in. (157.48 cm); 18:35 BP 115 / 79; Pulse 78; Resp 16 S; Pulse Ox 90% on 2 lpm NC; jl7 20:05 BP 102 / 65; Pulse 70; Resp 19; Pulse Ox 99% ; ao 18:23 Body Mass Index 32.92 (81.65 kg, 157.48 cm) ss Brenda Coma Score: 18:23 Eye Response: spontaneous(4). Verbal Response: oriented(5). Motor Response: obeys ss commands(6). Total: 15. ED Course: 18:17 Patient arrived in ED. bd 18:22 Triage completed. ss 18:23 Arm band placed on left wrist. ss 18:26 Wesley Gallegos, RN is Primary Nurse. jl7 18:26 Seizure precautions initiated. radiation monitor on. Pulse ox on. NIBP on. Warm blanket jl7 given. 18:35 Maintain EMS IV. Dressing intact. Good blood return noted. Site clean \T\ dry. Gauge \T\ jl 7 site: 22 right FA. 18:49 Tha Garcia MD is Attending Physician. wa 19:23 Head Brain Wo Cont CT In Process Unspecified. EDMS 20:43 Inserted saline lock: 22 gauge in left upper arm, using aseptic technique. ao 21:07 Sky Hsieh MD is Referral Physician. wa 21:43 No provider procedures requiring assistance completed. IV discontinued, intact, ao bleeding controlled, No redness/swelling at site. Pressure dressing applied. Administered Medications: 18:35 Drug: Zofran 4 mg Route: IVP; Site: right forearm; jl7 21:42 Follow up: Response: No adverse reaction ao 19:47 Drug: Keppra 1000 mg Route: IV; Rate: 1000 mg/hr; Site: left forearm; ao 19:48 Drug: NS 0.9% 1000 ml Route: IV; Rate: 1 bolus; Site: left forearm; ao 20:04 Follow up: IV Status: Completed infusion; IV Intake: 100ml ao 21:42 Follow up: IV Status: Completed infusion; IV Intake: 1000ml ao 20:42 Drug: Tylenol 1000 mg Route: PO; ao 21:41 Follow up: Response: No adverse reaction; Pain is decreased ao Intake: 20:04 IV: 100ml; Total: 100ml. ao 21:42 IV: 1000ml; Total: 1100ml. ao Outcome: 21:08 Discharge ordered by . wa 21:43 Discharged to home via wheelchair. ao 21:43 Condition: stable 21:43 Discharge instructions given to patient, Instructed on discharge instructions, follow up and referral plans. Demonstrated understanding of instructions, follow-up care, medications, Prescriptions given X 1. 21:49 Patient left the ED. ao Signatures: Dispatcher [employer] EDMS Dorie Summers Shelby, RN RN ss Ortiz, Alex, RN RN ao Leal, Jahala, RN RN jl7 Tha Garcia MD MD az
--- NOTE | 2019-09-19 21:09 | EDPHYS ---
Physician Documentation [facility] Name: Mirna Celestin Age: 58 yrs Sex: Female : 1960 Arrival Date: 09/19/2019 Time: 18:17 Bed 3 Private MD: ED Physician Tha Garcia HPI: 09/19 20:59 This 58 yrs old Female presents to ER via EMS with complaints of Seizure. wa 20:59 The patient presents after having a single isolated seizure, that lasted 3 minute(s). wa Character of seizure(s): Loss of consciousness: it is not known if the patient experienced loss of consciousness, Motor activity: generalized, Incontinence: none, Apnea: the patient did not experience apnea, Circulation: the patient did not experience evidence of pulse disturbance, Eye movements: are unknown. Seizure onset: just prior to arrival. Context: the seizure(s) was witnessed, by a significant other, occurred at home, occurred while the patient was at rest, Contributing factors: missed recent doses of medications, per spouse, pt on Keppra. has not had the med in over a month. Seizure Hx: Cause: unknown, Last seizure: The patient's last seizure was approximately 1 month(s) ago, Seizure medications: Keppra. Associated injury: Other: tongue abrasion. EMS care: IV insertion and transport. Current symptoms: decreased level of consciousness. The patient has experienced similar episodes in the past. The patient has not recently seen a physician. 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 - Social history:: Smoking status: Patient/guardian denies using tobacco. - Ebola Screening: : Patient denies exposure to infectious person Patient denies travel to an Ebola-affected area in the 21 days before illness onset. - Family history:: not pertinent. - Hospitalizations: : No recent hospitalization is reported. ROS: 21:02 Constitutional: Negative for fever, chills, and weight loss, Eyes: Negative for injury, wa pain, redness, and discharge, Neck: Negative for injury, pain, and swelling, Cardiovascular: Negative for chest pain, palpitations, and edema, Respiratory: Negative for shortness of breath, cough, wheezing, and pleuritic chest pain, Abdomen/GI: Negative for abdominal pain, nausea, vomiting, diarrhea, and constipation, Back: Negative for injury and pain, : Negative for injury, bleeding, discharge, and swelling, MS/Extremity: Negative for injury and deformity, Skin: Negative for injury, rash, and discoloration, Psych: Negative for depression, anxiety, suicide ideation, homicidal ideation, and hallucinations. 21:02 ENT: Positive for mouth pain. 21:02 Neuro: Positive for seizure activity, Negative for altered mental status, dizziness, headache. 21:02 All other systems are negative. Exam: 21:02 Constitutional: This is a well developed, well nourished patient who is awake, alert, wa and in no acute distress. Head/Face: Normocephalic, atraumatic. Eyes: Pupils equal round and reactive to light, extra-ocular motions intact. Lids and lashes normal. Conjunctiva and sclera are non-icteric and not injected. Cornea within normal limits. Periorbital areas with no swelling, redness, or edema. Neck: Trachea midline, no thyromegaly or masses palpated, and no cervical lymphadenopathy. Supple, full range of motion without nuchal rigidity, or vertebral point tenderness. No Meningismus. Chest/axilla: Normal chest wall appearance and motion. Nontender with no deformity. No lesions are appreciated. Cardiovascular: Regular rate and rhythm with a normal S1 and S2. No gallops, murmurs, or rubs. Normal PMI, no JVD. No pulse deficits. Respiratory: Lungs have equal breath sounds bilaterally, clear to auscultation and percussion. No rales, rhonchi or wheezes noted. No increased work of breathing, no retractions or nasal flaring. Abdomen/GI: Soft, non-tender, with normal bowel sounds. No distension or tympany. No guarding or rebound. No evidence of tenderness throughout. Back: No spinal tenderness. No costovertebral tenderness. Full range of motion. Skin: Warm, dry with normal turgor. Normal color with no rashes, no lesions, and no evidence of cellulitis. MS/ Extremity: Pulses equal, no cyanosis. Neurovascular intact. Full, normal range of motion. Psych: Awake, alert, with orientation to person, place and time. Behavior, mood, and affect are within normal limits. 21:02 ENT: noted dry blood in mouth. tongue abrasion. Vital Signs: 18:23 BP 126 / 80; Pulse 94; Resp 17; Pulse Ox 95% on R/A; Weight 81.65 kg; Height 5 ft. 2 ss in. (157.48 cm); 18:35 BP 115 / 79; Pulse 78; Resp 16 S; Pulse Ox 90% on 2 lpm NC; jl7 20:05 BP 102 / 65; Pulse 70; Resp 19; Pulse Ox 99% ; ao 18:23 Body Mass Index 32.92 (81.65 kg, 157.48 cm) ss Brenda Coma Score: 18:23 Eye Response: spontaneous(4). Verbal Response: oriented(5). Motor Response: obeys ss commands(6). Total: 15. MDM: 18:49 Patient medically screened. ne 21:03 Differential diagnosis: seizure, non-adherence to meds. will load keppra. will work up wa to exclude acute event. Data reviewed: vital signs, nurses notes. 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 labs noted for leukocytosis at 12.. Test interpretation: by ED physician or midlevel provider: EKG: HR 87. nml sinus. nml axis. nml EKG. Response to treatment: the patient's symptoms have markedly improved after treatment. ED course: improved. alert. loaded Keppra. will script for keppra and give close f/u with neurology. 09/19 18:58 Order name: Acetaminophen; Complete Time: 20:28 ne 09/19 18:58 Order name: Basic Metabolic Panel; Complete Time: 20:28 ne 09/19 18:58 Order name: CBC with Diff; Complete Time: 20:28 ne 09/19 18:58 Order name: ETOH Level; Complete Time: 20:28 ne 09/19 18:58 Order name: Hepatic Function; Complete Time: 20:28 ne 09/19 18:58 Order name: PT-INR; Complete Time: 20:28 ne 09/19 18:58 Order name: Salicylate; Complete Time: 20:28 ne 09/19 18:58 Order name: Urine Drug Screen ne 09/19 18:58 Order name: Urine Microscopic Only 09/19 19:00 Order name: Head Brain Wo Cont CT; Complete Time: 20:28 ne 09/19 18:58 Order name: EKG; Complete Time: 18:59 ne 09/19 18:58 Order name: EKG - Nurse/Tech; Complete Time: 19:21 ne 09/19 18:58 Order name: IV Saline Lock; Complete Time: 19:20 ne 09/19 18:58 Order name: Labs collected and sent; Complete Time: 19:20 ne 09/19 18:58 Order name: Urine Dipstick-Ancillary (obtain specimen); Complete Time: 21:42 ne Administered Medications: 18:35 Drug: Zofran 4 mg Route: IVP; Site: right forearm; jl7 21:42 Follow up: Response: No adverse reaction ao 19:47 Drug: Keppra 1000 mg Route: IV; Rate: 1000 mg/hr; Site: left forearm; ao 19:48 Drug: NS 0.9% 1000 ml Route: IV; Rate: 1 bolus; Site: left forearm; ao 20:04 Follow up: IV Status: Completed infusion; IV Intake: 100ml ao 21:42 Follow up: IV Status: Completed infusion; IV Intake: 1000ml ao 20:42 Drug: Tylenol 1000 mg Route: PO; ao 21:41 Follow up: Response: No adverse reaction; Pain is decreased ao Disposition: 09/19/19 21:08 Discharged to Home. Impression: Epilepsy and recurrent seizures. - Condition is Stable. - Discharge Instructions: Seizure, Adult, [id number]. - Prescriptions for Keppra 500 mg Oral Tablet - take 1 tablet by ORAL route every 12 hours; 90 tablet. - Medication Reconciliation Form, Thank You Letter, Antibiotic Education, Prescription Opioid Use form. - Follow up: Sky Hsieh MD; When: 2 - 3 days; Reason: Recheck today's complaints. - Problem is an acute exacerbation. - Symptoms have improved. - Notes: take your keppra. follow up with the neurologist as discussed for further evaluation Signatures: Dispatcher [employer] EDMS Cherri Verdin RN RN Cristopher Eng RN RN ao Leal, Jahala, RN RN jl7 Tha Garcia MD MD ne Corrections: (The following items were deleted from the chart) 21:49 21:08 09/19/2019 21:08 Discharged to Home. Impression: Epilepsy and recurrent seizures. ao Condition is Stable. Forms are Medication Reconciliation Form, Thank You Letter, Antibiotic Education, Prescription Opioid Use. Follow up: Sky Hsieh; When: 2 - 3 days; Reason: Recheck today's complaints. Problem is an acute exacerbation. Symptoms have improved. addie
[2019-09-19 21:45] LABS: Urine Bacteria <20 /HPF (<20); Urine Culture Reflex Order NOT NEEDED; Urine RBC <5 /HPF (NONE SEEN)
[2019-09-19 21:58] LABS: Barbiturates NEGATIVE (NEGATIVE); Benzodiazepines NEGATIVE (NEGATIVE); Cocaine NEGATIVE (NEGATIVE); METHAMPHETAM NEGATIVE (NEGATIVE); Methadone NEGATIVE (NEGATIVE); Opiates NEGATIVE (NEGATIVE); Phencyclidine NEGATIVE (NEGATIVE); THC Cannibis POSITIVE (NEGATIVE)
[2019-09-19 22:43] VITALS: BP 102/65; O2SAT 99
--- NOTE | 2019-09-20 07:04 | EKG ---
Test Date: 2019-09-19 Test Time: 18:21:13 Network Firewall Engineer: [employer] MEASUREMENT RESULTS: Intervals: Rate: 87 NM: 168 QRSD: 82 QT: 386 QTc: 464 Belcher: P: 42 NM: 168 QRS: 9 T: 47 INTERPRETIVE STATEMENTS: Normal sinus rhythm Normal ECG Compared to ECG 01/04/2017 16:03:00 Sinus bradycardia no longer present Electronically Signed On 09-20-19 07:03:44 CDT by Kyle Harley
== END 2019-09-19 21:49 | disposition home or self-care (01) ==
LOC: ER 18:08
DX: G40.802 Other epilepsy, not intractable, without status epilepticus (principal); I10 Essential (primary) hypertension; Z88.0 Allergy status to penicillin; Z88.1 Allergy status to other antibiotic agents; Z88.2 Allergy status to sulfonamides; Z88.5 Allergy status to narcotic agent
CPT/HCPCS: 93005; 85025; 80048; 36415; 80320; 80329 ×2; 85610; 80076; 80307 ×8; 81015; 70450; 96375; 96374; 99284; J1953; J7030; J2405

== ENCOUNTER 2021-08-10 13:14 | Inpatient (IN) | payer MEDICARE ==
--- OUTSIDE RECORDS SUMMARY | 2021-08-10 13:18 | XMS REPORT | Continuity of Care Document ---
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 2020-04-11 2020-04-12 Outpatient nullFlavo MNA [id number] Memoria 18:30:00 04:59:59 r Neurology 12 l La Jose Milton 2020-04-11 2020-04-11 Outpatient MARYLOU HodgsonMISCHER MHMISCHER [id number] 13:30:00 23:59:59 Espinoza 12 Tha 2020-04-11 2020-04-11 Outpatient MHIE MHIE [id number] Memoria 13:30:00 13:30:00 12 jeff Jose 2020-01-12 2020-01-13 Outpatient nullFlavo MNA [id number] Memoria 16:45:00 05:59:59 r Neurology 11 l La Jose Jose 2020-01-12 2020-01-12 Outpatient Gokul MHMISCHER MHMISCHER [id number] 10:45:00 23:59:59 Espinoza 11 Tha 2020-01-12 2020-01-12 Outpatient MHIE MHIE [id number] Memoria 10:45:00 10:45:00 11 jeff Jose 2019-10-19 2019-10-20 Outpatient nullFlavo MNA [id number] Memoria 17:30:00 05:59:59 r Neurology 10 l David Jose 2019-10-19 2019-10-19 Outpatient MARYLOU HodgsonMISCHER MHMISCHER [id number] 11:30:00 23:59:59 Espinoza 10 Tha 2019-10-19 2019-10-19 Outpatient MHIE MHIE [id number] Memoria 11:30:00 11:30:00 10 jeff Jose 2019-04-28 2019-04-28 Ambulatory nullFlavo MNA [id number] Memoria 18:15:00 18:15:00 Pre-Reg r Neurology 09 l [place] Jose Jose 2019-04-28 2019-04-28 Outpatient MHIE MHIE [id number] Memoria 13:15:00 13:15:00 09 jeff Jose 2019-04-28 2019-04-28 Outpatient MARYLOU HodgsonMISCHER MHMISCHER [id number] 13:15:00 13:15:00 Espinoza 09 Tha 2019-03-28 2019-03-29 Outpatient nullFlavo MNA [id number] Memoria 13:45:00 04:59:59 r Neurology 08 jeff Hernandez Jose 2019-03-28 2019-03-28 Outpatient MARYLOU HodgsonMISCHER MHMISCHER [id number] 08:45:00 23:59:59 Espinoza 08 Tha 2019-03-28 2019-03-28 Outpatient MHIE MHIE [id number] Memoria 08:45:00 08:45:00 08 jeff Jose 2019-02-27 2019-02-27 [facility] [id number] [facility] 16:07:00 16:07:00 [facility] 2019-02-17 2019-02-17 Outpatient MHIE MHIE [id number] Memoria 14:45:00 14:45:00 07 jeff Garcia 2019-02-02 2019-02-02 Outpatient MHIE MHIE [id number] Memoria 14:00:00 14:00:00 06 jeff TorresMilton 2018-12-02 2018-12-03 Outpatient nullFlavo MNA [id number] Memoria 21:00:00 05:59:59 r Neurology 05 jeff Garcia 2018-12-02 2018-12-02 Outpatient GokulMARYLOUMDSCHER MHMISCHER [id number] 15:00:00 23:59:59 Espinoza 05 Tha 2018-12-02 2018-12-02 Outpatient MHIE MHIE [id number] Memoria 15:00:00 15:00:00 05 jeff Jose 2018-11-24 2018-11-25 Outpatient nullFlavo MNA [id number] Memoria 21:30:00 05:59:59 r Neurology 02 jeff Hernandez Milton 2018-11-24 2018-11-24 [facility] [id number] 15:30:00 23:59:59 Espinoza 02 Tha 2018-11-24 2018-11-24 Outpatient MHIE MHIE [id number] Memoria 15:30:00 15:30:00 02 jeff Jose 2018-11-01 2018-11-02 Outpatient nullFlavo MNA [id number] Memoria 21:30:00 05:59:59 r Neurosurger 03 l y [facility] 2018-11-01 2018-11-01 Outpatient ERICK MorelSCHMAICOL MHMISCHER [id number] 15:30:00 23:59:59 Herbert Tom 03 2018-11-01 2018-11-01 Ambulatory nullFlavo MNA [id number] Memoria 21:30:00 21:30:00 Pre-Reg r Neurosurger 04 l y [facility] 2018-11-01 2018-11-01 Outpatient MHIE MHIE [id number] Memoria 15:30:00 15:30:00 03 jeff Milton 2018-11-01 2018-11-01 Outpatient MHIE MHIE [id number] Memoria 15:30:00 15:30:00 04 jeff Milton 2018-11-01 2018-11-01 Outpatient Tex Gil MHMISCHER MHMISCHER [id number] 15:30:00 15:30:00 2018-10-18 2018-10-20 Phone nullFlavo MNA [id number] Memoria 14:24:00 05:59:59 Message r Neurosurger 01 l y [facility] Jose 2018-10-18 2018-10-19 Outpatient MHMISCHER MHMISCHER [id number] 08:24:00 23:59:59 2018-10-12 2018-10-13 Outpatient nullFlavo MNA [id number] Memoria 21:00:00 05:59:59 r Neurology 01 l La Jose Jose 2018-10-12 2018-10-12 Outpatient ERICK HodgsonSCHER MHMISCHER [id number] 15:00:00 23:59:59 Espinoza Tha 2018-10-12 2018-10-12 Outpatient MHIE MHIE [id number] Memoria 15:00:00 15:00:00 01 jeff Jose 2018-09-08 2018-09-10 Phone nullFlavo MNA [id number] Memoria 19:02:00 04:59:59 Message r Neurology 00 l La Jose Jose 2018-09-08 2018-09-09 Outpatient MHMISCHER MHMISCHER [id number] 14:02:00 23:59:59 00 2018-08-31 2018-09-01 Outpatient nullFlavo MNA [id number] Memoria 20:15:00 04:59:59 r Neurology 00 l La Jose Jose 2018-08-31 2018-08-31 Outpatient MARYLOU HodgsonVLADISLAVSCHER MHMISCHER [id number] 15:15:00 23:59:59 Espinoza 00 Tah 2018-08-31 2018-08-31 Outpatient MHIE MHIE [id number] Memoria 15:15:00 15:15:00 00 jeff Jose 2018-05-30 2018-05-30 [facility] [id number] [address] 15:46:00 15:46:00 t Chitina BigML Luke s - [facility] Family Medicine l Medicine Outpati ent Clinics 2018-05-26 2018-05-26 [facility] [id number] [facility] [address] 16:34:00 16:34:00 t Chitina Chitina Niko Niko s - Drive [facility] Family Medicine l Medicine Outpati ent Clinics 2018-05-26 2018-05-26 [facility] [id number] [address] 16:31:00 16:31:00 t Chitina Chitina Niko Niko s - Drive [facility] Outpati ent Clinics 2018-05-13 2018-05-13 [facility] [id number] 15:54:00 15:54:00 t Cura TV [facility] Outpati ent Clinics 2018-04-26 2018-04-26 [facility] [id number] 15:49:00 15:49:00 t Cura TV [facility] Outpati ent Clinics 2018-03-28 2018-03-28 [facility] [id number] 15:30:00 15:30:00 t Cura TV [facility] Results This patient has no known results.
--- NOTE | 2021-08-10 14:03 | RAD REPORT ---
EXAM DESCRIPTION: RAD - Chest Single View - 08/10/2021 1:55 pm CLINICAL HISTORY: CHEST PAIN Chest pain. COMPARISON: Chest Single View dated 04/24/2016; Chest Single View dated 04/21/2016; Chest Single View dated 04/10/2016 FINDINGS: Portable technique limits examination quality. The lungs are grossly clear. The heart is normal in size. Mildly tortuous thoracic aorta. No displace d fractures. IMPRESSION: No acute intrathoracic process suspected.
[2021-08-10] MEDS ORDERED: LEVETIRACETAM 500 MG/5 ML VIAL IV ONE (14:13)
[2021-08-10] MEDS ORDERED: levETIRAcetam 1,000 MG in NA CHLORIDE 0.9% 100 ML IV ONE (14:30)
[2021-08-10 17:52] LABS: ALT/SGPT 21 U/L (12-78); AST/SGOT 22 U/L (15-37); Albumin 3.5 g/dL (3.4-5.0); Alkaline Phosphatase 109 U/L (45-117); BUN Blood Urea Nitrogen 13 mg/dL (7-18); Bicarbonate 20 mmol/L (21-32); Bilirubin Direct < 0.1 mg/dL (0-0.2); Bilirubin Total 0.7 mg/dL (0.2-1.0); Glucose Level 93 mg/dL (74-106); Magnesium 2.2 mg/dL (1.8-2.4); NT PRO-BNP 159 pg/mL (<125); Potassium 4.1 mmol/L (3.5-5.1); Protein, Total 7.7 g/dL (6.4-8.2); Sodium Level 134 mmol/L (136-145); Troponin (Emerg Dept Use Only) 0.15 ng/mL (0.0-0.045)
[2021-08-10 18:08] LABS: Protime INR 0.96
--- NOTE | 2021-08-10 18:12 | EDPHYS ---
Physician Documentation [facility] Name: Mirna Celestin Age: 60 yrs Sex: Female : 1960 Arrival Date: 08/10/2021 Time: 13:21 Bed 15 Private MD: ED Physician Aurelio Doss HPI: 08/10 13:39 This 60 yrs old Female presents to ER via EMS with complaints of Abdominal pm1 Pain, Probable Seizure. 13:39 The patient presents after having a possible seizure episode, the episode(s) was pm1 witnessed, By nobody. However patient was on the phone with her when she had the possible seizure. Character of seizure(s): Loss of consciousness: it is not known if the patient experienced loss of consciousness, Incontinence: none. Seizure onset: just prior to arrival. Context: occurred at home, occurred while the patient was sitting, Contributing factors: missed recent doses of medications, Out of Keppra for the past 2 days. Refill IS present at her pharmacy. Seizure Hx: Seizure medications: Keppra. Associated injury: Chest: anterior aspect of right upper chest and mid-sternal area, pain, Abdomen: epigastric area. Current symptoms: Currently, the patient is not experiencing any symptoms. The patient has not recently seen a physician. 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 - Social history:: Smoking status: Patient denies any tobacco usage or history of. ROS: 13:39 Constitutional: Negative for fever, chills, and weight loss. pm1 13:39 Eyes: Negative for injury, pain, redness, and discharge, ENT: Negative for injury, pain, and discharge, Neck: Negative for injury, pain, and swelling, Respiratory: Negative for shortness of breath, cough, wheezing, and pleuritic chest pain. 13:39 Back: Negative for injury and pain, MS/Extremity: Negative for injury and deformity, Skin: Negative for injury, rash, and discoloration. 13:39 Cardiovascular: Positive for chest pain, Negative for palpitations. 13:39 Abdomen/GI: Positive for abdominal pain, Negative for nausea, vomiting, and diarrhea. 13:39 Neuro: Positive for seizure activity, Negative for numbness, tingling, weakness. 13:39 All other systems are negative. Exam: 13:39 Constitutional: This is a well developed, well nourished patient who is awake, alert, pm1 and in no acute distress. Head/Face: Normocephalic, atraumatic. 13:39 Skin: Warm, dry with normal turgor. Normal color with no rashes, no lesions, and no evidence of cellulitis. MS/ Extremity: Pulses equal, no cyanosis. Neurovascular intact. Full, normal range of motion. 13:39 Cardiovascular: Exam negative for acute changes, Rate: normal, Rhythm: regular, Pulses: no pulse deficits are appreciated. 13:39 Respiratory: Exam negative for acute changes, respiratory distress, shortness of breath, Breath sounds: are clear throughout. 13:39 Abdomen/GI: Exam negative for acute changes, Inspection: abdomen appears normal, Palpation: abdomen is soft and non-tender, in all quadrants. 13:39 Neuro: Exam negative for acute changes, Orientation: is normal, Mentation: is normal, Motor: is normal, moves all fours. Vital Signs: 13:22 BP 138 / 84; Pulse 84; Resp 23; Temp 98.8(TE); Pulse Ox 98% on R/A; Weight 104.33 kg; ss Height 5 ft. 2 in. (157.48 cm); Pain 8/10; 15:00 BP 147 / 80; Pulse 68; Resp 16; Temp 98.4; Pulse Ox 97% on R/A; aj2 19:30 BP 149 / 98; Pulse 65; Resp 19; Temp 97.4; Pulse Ox 97% on R/A; Pain 2/10; bc5 13:22 Body Mass Index 42.07 (104.33 kg, 157.48 cm) ss MDM: 13:31 Patient medically screened. pm1 15:09 Data reviewed: vital signs. Data interpreted: Pulse oximetry: on room air is 97 %. pm1 Interpretation: normal. 17:48 ED course: Patient with third lab recollect. Pending lab results prior to disposition pm1 decision, therefore will handoff patient care to Trent HENRIQUEZ. 17:48 Transition of care: After a detail discussion of the patient's case, care is pm1 transferred to Trent HENRIQUEZ. 18:00 Counseling: I had a detailed discussion with the patient and/or guardian regarding: the pm1 historical points, exam findings, and any diagnostic results supporting the discharge/admit diagnosis, lab results, radiology results, the need for further work-up and treatment in the hospital. 18:10 Physician consultation: Virgilio HENRIQUEZ was contacted at 18:10, regarding admission, pm1 patient's condition, and will see patient in ED. 08/10 13:31 Order name: Basic Metabolic Panel pm1 08/10 13:31 Order name: CBC with Diff pm1 08/10 13:31 Order name: LFT's; Complete Time: 17:55 pm1 08/10 13:31 Order name: Magnesium; Complete Time: 17:55 pm1 08/10 13:31 Order name: NT PRO-BNP; Complete Time: 17:55 pm1 08/10 13:31 Order name: PT-INR; Complete Time: 18:09 pm1 08/10 13:31 Order name: Troponin (emerg Dept Use Only); Complete Time: 17:55 pm1 08/10 13:32 Order name: Basic Metabolic Panel; Complete Time: 17:55 EDFL 08/10 18:09 Order name: COVID-19 : Document "Date of Symptom Onset" if Symptomatic. pm1 08/10 22:24 Order name: CBC with Automated Diff EDFL 08/10 22:46 Order name: Troponin I EDFL 08/10 23:07 Order name: SARS-COV-2 RT PCR EDFL 08/11 03:18 Order name: CBC with Automated Diff EDFL 08/11 03:33 Order name: Troponin I EDFL 08/10 13:31 Order name: XRAY Chest (1 view); Complete Time: 14:52 pm1 08/10 13:31 Order name: EKG; Complete Time: 13:32 pm1 08/10 13:31 Order name: Cardiac monitoring; Complete Time: 14:02 pm1 08/10 18:55 Order name: CONS Physician Consult EDFL 08/11 03:48 Order name: Comprehensive Metabolic Panel EDFL 08/11 03:48 Order name: Phosphorus EDFL 08/11 03:48 Order name: Lipid Profile EDFL 08/11 03:48 Order name: T4 Free [facility] 08/11 03:48 Order name: Magnesium [facility] 08/11 03:48 Order name: Thyroid Stimulating Hormone [facility] 08/11 09:23 Order name: CT [facility] 08/10 13:31 Order name: EKG - Nurse/Tech; Complete Time: 14:02 pm1 08/10 13:31 Order name: IV Saline Lock; Complete Time: 14:38 pm1 08/10 13:31 Order name: Labs collected and sent; Complete Time: 14:38 pm1 08/10 13:31 Order name: O2 Per Protocol; Complete Time: 14:02 pm1 08/10 13:31 Order name: O2 Sat Monitoring; Complete Time: 14:02 pm1 08/10 15:53 Order name: Labs - recollect needed: recollect all the blood please; Complete Time: eb 16:51 Administered Medications: 16:52 Drug: Keppra (levETIRAcetam) 1000 mg Route: IV; Rate: calculated rate; Site: right aj2 upper arm; 19:44 Drug: Aspirin Chewable Tablet 324 mg Route: PO; wg 19:44 Drug: Lovenox (enoxaparin) 1 mg/kg Route: Sub-Q; Site: abdomen; wg 19:44 Drug: fentaNYL (PF) 25 mcg Route: IVP; Site: right upper arm; wg 19:44 Drug: Zofran (Ondansetron) 4 mg Route: IVP; Site: right upper arm; wg Disposition: 08/11 15:19 Co-signature as Attending Physician, Aurelio Doss MD I agree with the assessment and rn plan of care. Attestation: The patient's history, exam findings, diagnostics, and a summary of any interventions or procedures was reviewed in detail with Neal Moseley NP. Disposition Summary: 08/10/21 18:11 Hospitalization Ordered Hospitalization Status: Inpatient Admission pm1 Provider: Virgilio Lockwood pm1 Condition: Stable pm1 Problem: new pm1 Symptoms: have improved pm1 Bed/Room Type: Standard pm1 Location: Telemetry/MedSurg (Inpatient)(08/11/21 07:29) dw Room Assignment: 205(08/11/21 07:29) dw Diagnosis - NSTEMI pm1 Forms: - Medication Reconciliation Form pm1 - SBAR form pm1 Signatures: Dispatcher [employer] EDMS Leigh Mitchell RN RN Lauren Flores RN RN dw Nieto, Roman, MD MD rn Smirch, Shelby, RN RN ss Trent Chase PA PA cp Marinas, Patrick, DROP HAMMER PILE DRIVER OPERATOR DROP HAMMER PILE DRIVER OPERATOR pm1 Bhakti Pinedo Angelea aj2 Gavino Waldrop RN wg Corrections: (The following items were deleted from the chart) 08/10 19:38 18:11 Telemetry/MedSurg (Inpatient) pm1 :38 18:11 pm1 08/11 07:29 08/10 19:38 [facility] ER [facility] 08[facility]11 07[facility]08[facility]10 [facility]
--- NOTE | 2021-08-10 18:12 | ER ---
Nurse's Notes [facility] Name: Mirna Celestin Age: 60 yrs Sex: Female : 1960 Arrival Date: 08/10/2021 Time: 13:21 Bed 15 Private MD: Diagnosis: NSTEMI Presentation: 08/10 13:22 Chief complaint: EMS states: " called 911 for wellfare check due to possible ss seizure. Upon arrival to patients home, patient was there by herself, crying c/o abd pain and chest pain, but she is unsure what happened." Pt reports she has been out of her Keppra for the past two days. Coronavirus screen: Client denies travel out of the [place] in the last 14 days. Ebola Screen: Patient denies exposure to infectious person. Patient denies travel to an Ebola-affected area in the 21 days before illness onset. Initial Sepsis Screen: Does the patient meet any 2 criteria? No. Patient's initial sepsis screen is negative. Does the patient have a suspected source of infection? No. Patient's initial sepsis screen is negative. Risk Assessment: Do you want to hurt yourself or someone else? Patient reports no desire to harm self or others. Onset of symptoms was August 10, 2021. 13:22 Method Of Arrival: EMS: [facility] ss 13:22 Acuity: LEE 3 ss Triage Assessment: 15:02 General: Appears in no apparent distress. comfortable, obese, Behavior is calm, aj2 cooperative. Pain: Denies pain. GI: Abdomen is obese. 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 - Social history:: Smoking status: Patient denies any tobacco usage or history of. Screenin:23 Abuse screen: Denies threats or abuse. Denies injuries from another. Nutritional ss screening: No deficits noted. Tuberculosis screening: Never had TB. Fall Risk Fall in past 12 months (25 points). Secondary diagnosis (15 points) seizures, IV access (20 points). Ambulatory Aid- None/Bed Rest/Nurse Assist (0 pts). Gait- Normal/Bed Rest/Wheelchair (0 pts) Mental Status- Oriented to own ability (0 pts). Assessment: 19:30 Reassessment: Initial contact. Pt sitting up in stretcher with eyes open, denies bc5 symptoms a this time, requesting to eat and was told that this RN will follow up and ask provider. A\\T\\O x 3, RR is even and unlabored, speaking in clear and complete sentences at this time. VSS, NAD, MCTM. 20:42 GI: Abd is soft Abd is non tender X 4 quads. bc5 Vital Signs: 13:22 BP 138 / 84; Pulse 84; Resp 23; Temp 98.8(TE); Pulse Ox 98% on R/A; Weight 104.33 kg; ss Height 5 ft. 2 in. (157.48 cm); Pain 8/10; 15:00 BP 147 / 80; Pulse 68; Resp 16; Temp 98.4; Pulse Ox 97% on R/A; aj2 19:30 BP 149 / 98; Pulse 65; Resp 19; Temp 97.4; Pulse Ox 97% on R/A; Pain 2/10; bc5 13:22 Body Mass Index 42.07 (104.33 kg, 157.48 cm) ED Course: 13:21 Patient arrived in ED. eb 13:23 Neal Moseley, JOSE JUAN is PHCP. pm1 13:23 Aurelio Doss MD is Attending Physician. pm1 13:31 Triage completed. ss 13:31 Arm band placed on right wrist. ss 13:36 Aline Moctezuma is Primary Nurse. aj2 13:55 XRAY Chest (1 view) In Process Unspecified. EDMS 14:00 Missed attempt(s): 22 gauge in right forearm. antecubital area. mh5 14:01 Patient has correct armband on for positive identification. Bed in low position. Call 5 light in reach. Side rails up X2. Adult w/ patient. Warm blanket given. monitoring tech on. Pulse ox on. NIBP on. 14:02 EKG done, by ED staff, reviewed by Neal Moseley NP. 5 14:23 Missed attempt(s): 22 gauge in right antecubital area. Bleeding controlled, band aid ss applied, catheter tip intact. 14:38 Basic Metabolic Panel Sent. aj2 14:38 Basic Metabolic Panel Sent. aj2 14:38 CBC with Diff Sent. aj2 14:38 LFT's Sent. aj2 14:38 Magnesium Sent. aj2 14:38 NT PRO-BNP Sent. aj2 14:38 PT-INR Sent. aj2 14:38 Troponin (emerg Dept Use Only) Sent. aj2 17:40 Missed attempt(s): 24 gauge in left shoulder. Bleeding controlled, band aid applied, hb catheter tip intact. 17:50 Missed attempt(s): 24 gauge in right hand. Bleeding controlled, band aid applied, hb catheter tip intact. 18:11 Virgilio Lockwood PA is Hospitalizing Provider. pm1 20:42 Inserted saline lock: 22 gauge in right forearm, using aseptic technique. bc5 21:04 COVID-19 : Document "Date of Symptom Onset" if Symptomatic. Sent. lh3 Administered Medications: 16:52 Drug: Keppra (levETIRAcetam) 1000 mg Route: IV; Rate: calculated rate; Site: right aj2 upper arm; 19:44 Drug: Aspirin Chewable Tablet 324 mg Route: PO; wg 19:44 Drug: Lovenox (enoxaparin) 1 mg/kg Route: Sub-Q; Site: abdomen; wg 19:44 Drug: fentaNYL (PF) 25 mcg Route: IVP; Site: right upper arm; wg 19:44 Drug: Zofran (Ondansetron) 4 mg Route: IVP; Site: right upper arm; wg Outcome: 18:11 Decision to Hospitalize by Provider. pm1 20:42 Condition: good 5 08/11 11:07 Patient left the ED. rn Signatures: Dispatcher [employer] EDMS Aurelio Doss MD MD rn Smirch, Shelby, RN RN ss Marinas, Patrick, JOSE JUAN ELECTROENCEPHALOGRAPHIC TECHNICIAN pm1 Francia Arshad RN RN hb Martinez, [facility] Bhakti Pinedo Latisha, RN RN 3 Aline Moctezuma 2 Gavino Waldrop RN Marlene Funk RN RN 5 Corrections: (The following items were deleted from the chart) 08/10 20:44 19:30 BP 149 / ???; Pulse 108bpm; Resp 19bpm; Pulse Ox 97% RA; Temp 97.4F; Pain 2/10; bc5 bc5
[2021-08-10] MEDS ORDERED: ASPIRIN EC 81 MG TAB PO ONE (19:50)
[2021-08-10] MEDS ORDERED: ENOXAPARIN 100 MG/ML SYR SQ ONE (19:51)
[2021-08-10] MEDS ORDERED: FENTANYL CITR 100 MCG/2 ML ONE (19:52)
[2021-08-10] MEDS ORDERED: ONDANSETRON 4 MG/2 ML VIAL ONE (19:53)
[2021-08-10] MEDS ORDERED: ONDANSETRON 4 MG/2 ML VIAL IV PRN (21:39)
[2021-08-10] MEDS ORDERED: ACETAMINOPHEN 500 MG TAB PO PRN (21:39)
[2021-08-10] MEDS ORDERED: LORazepam 2 MG/ML VIAL IV PRN (21:39)
[2021-08-10] MEDS ORDERED: MORPHINE 2 MG/ML SYR IV PRN (21:39)
[2021-08-10] MEDS ORDERED: ATORVASTATIN 40 MG TAB PO SCH (21:39)
[2021-08-10] MEDS ORDERED: NITROGLYCERIN 0.4 MG/TAB SL PRN (21:39)
[2021-08-10] MEDS: NA CHLORIDE 0.9% 1,000 ML IV SCH (21:39)
[2021-08-10] MEDS ORDERED: HYDRALAZINE HCL 20 MG/ML VIAL IV PRN (21:39)
[2021-08-10 22:18] LABS: Absolute Lymphocytes (CBC) 1.3 K/uL (0.7-4.9); Basophils % 0.7 % (0-1.3); Hematocrit 42.4 % (36.0-45.0); Lymphocytes % 11.2 % (15.3-44.8); MPV 8.2 fL (7.6-11.3); RBC Red Blood Cell Count 4.76 M/uL (3.86-4.86)
--- NOTE | 2021-08-10 22:32 | P.HP ---
Certification for Inpatient Patient admitted to: Inpatient With expected LOS: <2 Midnights Patient will require the following post-hospital care: None Practitioner: I am a practitioner with admitting privileges, knowledge of patient current condition, hospital course, and medical plan of care. Services: Services provided to patient in accordance with Admission requirements found in Title 42 Section 412.3 of the Code of Federal Regulations Patient History Date of Service: 08/10/21 Reason for admission: NSTEMI History of Present Illness: Ms. Celestin is a 60 yo F with history of seizures, HTN, anxiety who presents with possible seizure. Patient was on the phone talking to her when suddenly she stopped speaking. called 911 to do a welfare check. Patient was still unconscious upon arrival. She was seated at the time. She says when she awoke she had chest and epigastric abdominal pain. She describes pain as 8/10 constant stabbing sternal chest pain. Now she feels at baseline although she is groggy. She says her last seizure was 1 year ago. She saw her neurologist last week. She takes Keppra 500mg BID but has not taken it for the past few days because she is wheelchair bound and her was out of town. Na 134, Cl 108, CO3 20, troponin 0.15. EKG wnl. Allergies cephalexin monohydrate [From Keflex] Allergy (Verified 04/22/16 01:45) Unknown codeine Allergy (Verified 04/22/16 01:45) Unknown Penicillins Allergy (Verified 04/22/16 01:46) unknown pentazocine [From Talwin] Allergy (Verified 04/22/16 01:45) Unknown Sulfa (Sulfonamide Antibiotics) Allergy (Verified 04/22/16 01:45) Unknown Home Medications: Cetirizine HCl 10 mg PO DAILY 04/22/16 Diltiazem HCl [Diltiazem 24Hr ER] 360 mg PO DAILY 04/22/16 Etodolac [Lodine Xl] 500 mg PO BIDP PRN 04/22/16 Sertraline [Zoloft*] 150 mg PO DAILY 04/22/16 Spironolactone 25 mg PO BID #60 tablet 04/23/16 - Past Medical/Surgical History Diabetic: No -: anxiety -: degenerative disk disease -: arthritis -: seizures -: pituitary tumor -: danita - Family History Mother -: Heart disease, Hypertension, Diabetes - Social History Smoking Status: Never smoker Alcohol use: No CD- Drugs: No Caffeine use: No Place of Residence: Home Review of Systems 10-point ROS is otherwise unremarkable General: Malaise Cardiovascular: Chest Pain Gastrointestinal: Abdominal Pain Physical Examination - Physical Exam General: Alert, In no apparent distress, Obese HEENT: Atraumatic, PERRLA, Mucous membr. moist/pink, EOMI, Sclerae nonicteric Neck: Supple, 2+ carotid pulse no bruit, No LAD, Without JVD or thyroid abnormality Respiratory: Clear to auscultation bilaterally, Normal air movement Cardiovascular: Regular rate/rhythm, Normal S1 S2 Gastrointestinal: Normal bowel sounds, No tenderness Musculoskeletal: No tenderness Integumentary: No rashes Neurological: Normal speech, Normal strength at 5/5 x4 extr, Normal tone, Normal affect Lymphatics: No axilla or inguinal lymphadenopathy - Studies Laboratory Data (last 24 hrs) 08/10/21 17:52: PT 11.0, INR 0.96 08/10/21 16:46: WBC Cancelled, Hgb Cancelled, Hct Cancelled, Plt Count Cancelled 08/10/21 16:46: Sodium 134 L, Potassium 4.1, BUN 13, Creatinine 0.90, Glucose 93, Magnesium 2.2, Total Bilirubin 0.7, AST 22, ALT 21, Alkaline Phosphatase 109 Assessment and Plan - Plan cardiology consulted, neurology consulted keppra level pending, CT head pending, seizure precautions, prn Ativan IV keppra 1000mg given in ED, continue keppra 500 BID, await neurology recommendations trend troponins, repeat EKG, on telemetry continue full dose lovenox, asa, metoprolol, statin prn morphine and NTG lipid and thyroid panel pending Discharge Plan: Home Plan to discharge in: 48 Hours - Advance Directives Does patient have a Living Will: No Does patient have a Durable POA for Healthcare: No - Code Status/Comfort Care Code Status Assessed: Yes (full code ) Critical Care: No Time Spent Managing Pts Care (In Minutes): 70
[2021-08-11] MEDS ORDERED: ACETAMINOPHEN 500 MG TAB ONE (01:14)
[2021-08-11] MEDS ORDERED: ONDANSETRON 4 MG/2 ML VIAL ONE (01:19)
[2021-08-11] MEDS ORDERED: MORPHINE 2 MG/ML SYR ONE (01:19)
[2021-08-11 03:13] LABS: Absolute Lymphocytes (CBC) 1.9 K/uL (0.7-4.9); Basophils % 0.6 % (0-1.3); Hematocrit 41.2 % (36.0-45.0); Lymphocytes % 18.5 % (15.3-44.8); MPV 8.5 fL (7.6-11.3); RBC Red Blood Cell Count 4.57 M/uL (3.86-4.86)
[2021-08-11 03:36] LABS: Albumin 3.4 g/dL (3.4-5.0); Bilirubin Total 0.7 mg/dL (0.2-1.0); Magnesium 2.1 mg/dL (1.8-2.4); Phosphorus 3.5 mg/dL (2.5-4.9); Potassium 3.8 mmol/L (3.5-5.1); Protein, Total 7.6 g/dL (6.4-8.2)
[2021-08-11 03:47] LABS: Thyroid Stimulating Hormone 4.56 uIU/mL (0.360-3.740)
[2021-08-11] MEDS ORDERED: METOPROLOL TAR 25 MG TAB PO SCH (06:00)
[2021-08-11 06:40] VITALS: BMI 43.2
[2021-08-11] MEDS: NA CHLORIDE 0.9% 1,000 ML IV SCH (07:39)
[2021-08-11] MEDS ORDERED: SPIRONOLACTONE 25 MG TABLET PO SCH (09:00)
[2021-08-11] MEDS ORDERED: ENOXAPARIN 100 MG/ML SYR SQ SCH (09:00)
[2021-08-11] MEDS ORDERED: levETIRAcetam 500 MG TAB PO SCH (09:00)
[2021-08-11] MEDS ORDERED: ASPIRIN EC 81 MG TAB PO SCH (09:00)
--- NOTE | 2021-08-11 09:22 | RAD REPORT ---
EXAM DESCRIPTION: CT - Head Brain Wo Cont - 08/11/2021 5:24 am CLINICAL HISTORY: The patient is 60 years old and is Female; syncope TECHNIQUE: Axial computed tomography images of the head/brain without intravenous contrast. Sagitt al and coronal reformatted images were created and reviewed. This CT exam was performed using one o r more of the following dose reduction techniques: automated exposure control, adjustment of the mA and/or kV according to patient size, and/or use of iterative reconstruction technique. COMPARISON: CT of the head September 19, 2019 FINDINGS: BRAIN: Unremarkable. The wood-white matter differentiation is preserved . No hemorrhag e. No significant white matter disease. No edema. No extra-axial fluid collections. VENTRICLES: Unremarkable. No ventriculomegaly. BONES/JOINTS: No acute fracture. SOFT TISSUES: Unremarkable. SINUSES: Unremarkable as visualized. No acute sinusitis. MASTOID AIR CELLS: Unremarkable as visualized. No mastoid effusion. ORBITS: Unremarkable as visualized. IMPRESSION: No acute intracranial findings. Electronically signed by: Angeles Godfrey MD 08/10/2021 10:59 PM CDT Due to temporary technical issues with the PACS/Fluency reporting system, reports are being signed by the in house radiologist without review as a courtesy to ensure prompt reporting. The interpreting r adiologist is fully responsible for the content of the report.
[2021-08-11 09:34] VITALS: O2SAT 98
[2021-08-11] MEDS ORDERED: levETIRAcetam 500 MG TAB ONE (10:08)
[2021-08-11] MEDS ORDERED: METOPROLOL TAR 25 MG TAB ONE (10:08)
[2021-08-11] MEDS ORDERED: ENOXAPARIN 100 MG/ML SYR SQ ONE (10:08)
[2021-08-11] MEDS ORDERED: ASPIRIN EC 81 MG TAB PO ONE (10:08)
[2021-08-11] MEDS ORDERED: NA CHLORIDE 0.9% 1,000 ML ONE (10:50)
[2021-08-11 12:31] VITALS: BP 131/70; TEMP 97.8
--- NOTE | 2021-08-11 13:17 | P.DS ---
Admission Date: 08/10/21 Discharge Date: 08/11/21 Disposition: ROUTINE DISCHARGE Discharge Condition: FAIR Reason for Admission: NSTEMI Consultations: cardiology - Problems (1) Seizures Status: Acute (2) Elevated troponin Status: Acute (3) Hypertension Status: Acute Brief History of Present Illness: 60-year-old woman with a history of seizures hypertension anxiety disorder presented to the emergency department for possible seizure episode. According to report, patient was on the phone talking to her and she suddenly stopped talking. Her suspected patient had a seizure and called 911 to check on her. 911 found her seated in nature and unresponsive. Patient regained consciousness and was brought to the ED. Workup in the ED has been unremarkable except mildly elevated troponin. EKG showed no ischemic changes. He stated last seizure was about 1 year ago. She missed her Keppra dose for 2 days. Patient was hospitalized for further management. Hospital Course: Patient placed under observation on the medical floor. Troponin trended flat. Patient seen by cardiology and elevated troponin deemed secondary to demand ischemia. Echocardiogram performed and the result is pending to be followed. Patient given 1 g IV Keppra in the ED before admission and placed on Keppra 500 mg b.i.d. No seizures since hospitalization. Patient denies any chest pain and she is asymptomatic. Patient is suspected soft had a seizure episode given that she missed her Keppra dose for a few days. Patient deemed clinically stable for discharge. Vital Signs/Physical Exam: Temp Pulse Resp BP Pulse Ox 97.8 F 90 18 131/70 98 08/11/21 12:00 08/11/21 12:00 08/11/21 12:00 08/11/21 12:00 08/11/21 12:00 General: Alert, In no apparent distress, Oriented x3 HEENT: Normocephalic, Mucous membr. moist/pink Neck: Supple, JVD not distended Respiratory: Clear to auscultation bilaterally, Normal air movement Cardiovascular: No edema, Regular rate/rhythm, Normal S1 S2 Gastrointestinal: Soft and benign, Non-distended Musculoskeletal: No swelling, No erythema Integumentary: No rashes Neurological: Normal speech, Normal strength at 5/5 x4 extr, Cranial nerves 3-12 intact Laboratory Data at Discharge: WBC 10.30 K/uL (4.3-10.9) 08/11/21 02:40 Hgb 13.7 g/dL (12.0-15.0) 08/11/21 02:40 Hct 41.2 % (36.0-45.0) 08/11/21 02:40 Plt Count 229 K/uL (152-406) 08/11/21 02:40 PT 11.0 SECONDS (9.5-12.5) 08/10/21 17:52 INR 0.96 08/10/21 17:52 Sodium 137 mmol/L (136-145) 08/11/21 02:40 Potassium 3.8 mmol/L (3.5-5.1) 08/11/21 02:40 BUN 13 mg/dL (7-18) 08/11/21 02:40 Creatinine 1.01 mg/dL (0.55-1.3) 08/11/21 02:40 Glucose 103 mg/dL (74-106) 08/11/21 02:40 Phosphorus 3.5 mg/dL (2.5-4.9) 08/11/21 02:40 Magnesium 2.1 mg/dL (1.8-2.4) 08/11/21 02:40 Total Bilirubin 0.7 mg/dL (0.2-1.0) 08/11/21 02:40 AST 24 U/L (15-37) 08/11/21 02:40 ALT 27 U/L (12-78) 08/11/21 02:40 Alkaline Phosphatase 108 U/L (45-117) 08/11/21 02:40 Troponin I 0.20 ng/mL (0.0-0.045) H 08/11/21 02:40 Triglycerides 133 mg/dL (<150) 08/11/21 02:40 Cholesterol 193 mg/dL (<200) 08/11/21 02:40 HDL Cholesterol 48 mg/dL (40-60) 08/11/21 02:40 Cholesterol/HDL Ratio 4.02 08/11/21 02:40 Home Medications: Cetirizine HCl 10 mg PO DAILY 04/22/16 Diltiazem HCl [Diltiazem 24Hr ER] 360 mg PO DAILY 04/22/16 Etodolac [Lodine Xl] 500 mg PO BIDP PRN 04/22/16 Sertraline [Zoloft*] 150 mg PO DAILY 04/22/16 Spironolactone 25 mg PO BID #60 tablet 04/23/16 Atorvastatin Calcium [Lipitor] 40 mg PO BEDTIME #30 tab 08/11/21 levETIRAcetam [Keppra*] 500 mg PO BID #60 tab 08/11/21 New Medications: levETIRAcetam [Keppra*] 500 mg PO BID #60 tab Atorvastatin Calcium [Lipitor] 40 mg PO BEDTIME #30 tab Physician Discharge Instructions: PROBLEM: NSTEMI, Seizure GOAL: Clear understanding of disease process INSTRUCTIONS: Ok to discharge home Follow up with Primary Care Provider in 2 weeks Follow up with Dr. Hodgson in 1 week Contact physician or return to ER for any complications or concerns Call [phone] for any questions regarding hospital stay Diet: Heart Healthy Activity: Seizure precautions. IMMUNIZATION Influenza Vaccine Indicated: Influenza Vaccine Given: Date Given: Pneumonia Vaccine Indicated: No Pneumonia Vaccine Given: Date Given: Diet: AHA Activity: Seizure precautions. Followup: Espinoza Hodgson MD [ACTIVE - CAN ADMIT] - 1-2 Weeks
--- NOTE | 2021-08-11 14:16 | ECHO ---
HEIGHT: 5 ft 1 in WEIGHT: 229 lb 1.6 oz DATE OF STUDY: 08/11/[address]: Kyle Harley MD 2-DIMENSIONAL: YES M.MODE: YES DOPPLER: YES COLOR FLOW: YES TDS: NO PORTABLE: NO DEFINITY: NO BUBBLE STUDY: NO DIAGNOSIS: ELEVATED TROPONIN CARDIAC HISTORY: CATHERIZATION: NO SURGERY: NO PROSTHETIC VALVE: NO PACEMAKER: NO MEASUREMENTS (cm) DIASTOLIC (NORMALS) SYSTOLIC (NORMALS) IVSd 1.1 (0.6-1.2) LA Diam 3.0 (1.9-4.0) LVEF 55% LVIDd 3.4 (3.5-5.7) LVIDs 2.5 (2.0-3.5) %FS 28% LVPWd 1.2 (0.6-1.2) Ao Diam 3.2 (2.0-3.7) 2 DIMENSIONAL ASSESSMENT: RIGHT ATRIUM: NORMAL LEFT ATRIUM: NORMAL RIGHT VENTRICLE: NORMAL LEFT VENTRICLE: NORMAL TRICUSPID VALVE: NORMAL MITRAL VALVE: NORMAL PULMONIC VALVE: NORMAL AORTIC VALVE: NORMAL PERICARDIAL EFFUSION: NONE AORTIC ROOT: NORMAL LEFT VENTRICULAR WALL MOTION: NORMAL DOPPLER/COLOR FLOW: NORMAL COMMENTS: NORMAL LEFT VENTRICULAR EJECTION FRACTION 55-60%. NORMAL WALL MOTION. NORMAL STUDY. TECHNOLOGIST: Nettie ESTRADA
--- NOTE | 2021-08-13 12:33 | CON ---
Date of Consultation: 08/11/2021 Reason For Consultation: Elevated troponin. History Of Present Illness: Ms. Celestin is a 60-year-old woman, who came in with seizure and hypokale flakito, was noted to have a troponin of 0.2 and I was consulted. She was hypertensive with blood pressu re of 159/102 for which she came in. Otherwise denied any chest pain, nausea, vomiting, diaphoresis, PND, orthopnea, pedal edema, palpitation, or syncope. Past Medical History: Includes seizure, anxiety, and hypertension. Allergies: SHE IS ALLERGIC TO CEPHALEXIN, SULFA, PENICILLIN, AND CODEINE. Medications: At home include diltiazem, Zoloft, Aldactone, and Keppra, which she missed for the last few days. Physical Examination: General: Very pleasant. Vital Signs: Stable, sinus rhythm. HEENT: Negative. Neck: Supple with no bruit. Chest: Clear to auscultation and percussion. Cardiac: Revealed a regular rhythm and rate without any murmurs, gallops, or rubs. Abdomen: Benign. Extremities: Revealed no clubbing, cyanosis, or edema. Diagnostic Data: As stated earlier. Impression And Plan: 1.Elevated troponin secondary to seizure. 2.Hypokalemia, corrected. 3.Anxiety. 4.History of hypertension, well controlled. 5.Dyslipidemia. The patient is presently on aspirin, Lipitor, Lovenox, hydralazine, metoprolol, Kep pra, and Aldactone. Her blood pressure is much better controlled . Echocardiogram is pend ing. We will see what that shows before making further decisions. If her echocardiogram is normal, she can go home. I will make arrangements for outpatient stress test. NEHEMIAS/LAINE Voice ID: [id number] Report ID: [id number]
== END 2021-08-11 15:50 | disposition home or self-care (01) | DRG 101 ==
LOC: ER 13:14 → ERHOLD 19:40 → 2ND 08-11 10:45
PROVIDERS: ADMIT Internal Medicine; ATTEND Internal Medicine
DX: R56.9 Unspecified convulsions (principal); I24.8 Other forms of acute ischemic heart disease; E87.6 Hypokalemia; I10 Essential (primary) hypertension; F41.9 Anxiety disorder, unspecified; E78.5 Hyperlipidemia, unspecified; Z88.0 Allergy status to penicillin; Z88.2 Allergy status to sulfonamides; Z20.822 Contact with and (suspected) exposure to COVID-19
CPT/HCPCS: 36415; 70450; 71045; 80048; 80053; 80061; 80076; 80177; 83735; 83880; 84100; 84439; 84443; 84484; 85025; 85610; 93005; 93306; 94760; 96372; 96374; 96375; 99285; J1650; J1953; J2270; J2405; J3010; J7030; U0003

== ENCOUNTER 2023-10-01 15:09 | Inpatient (IN) | payer OTHER ==
--- OUTSIDE RECORDS SUMMARY | 2023-10-01 15:51 | XMS REPORT | Continuity of Care Document ---
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 00:00: 00:00 SEE-INSTRU [place] 00 :00 CTIONS. Medical follow Branch package directions levETIRAcet Yes = 1 tab, Me moria am 500 mg 5-17 PO, BID, # l oral tablet 14:30: 5 tab, 0 [place] 00 Refill(s), Pharmacy: [facility] [id number], 157.48, cm, 10/03/20 14:33:00 [employer], Height, 61.165, kg, 10/03/20 14:33:00 [employer], Weight sertraline Yes 100 mg = 1 M emoria 100 mg oral 3-25 tab, PO, l tablet 20:23: Daily, X [place] 00 90 day, # 90 tab, 2 Refill(s), Pharmacy: [facility], 157.48, cm, 10/03/20 14:33:00 [employer], Height, 61.165, kg, 10/03/20 14:33:00 [employer], Weight sertraline No See Memoria 100 mg oral 2-08 Instructio l tablet 14:36: ns, TAKE 1 Shey nn 00 AND 1/2 TABLET BY MOUTH DAILY, # 45 tab, 3 Refill(s), Pharmacy: [facility], 157.48, cm, 10/03/20 14:33:00 [employer], Height, 61.165, kg, 10/03/20 14:33:00 [employer], Weight Levetiracet Yes = 1 tab, Me moria am 500 MG 2-08 PO, BID, # l Oral Tablet 14:36: 180 tab, 3 [place] 00 Refill(s), Pharmacy: [facility], 157.48, cm, 10/03/20 14:33:00 [employer], Height, 61.165, kg, 10/03/20 14:33:00 [employer], Weight sertraline No See Memoria 100 mg oral 2-08 Instructio l tablet 14:35: ns, TAKE 1 Shey nn 00 AND 1/2 TABLET BY MOUTH DAILY, # 45 tab, 3 Refill(s), Pharmacy: [facility], 157.48, cm, 10/03/20 14:33:00 [employer], Height, 61.165, kg, 10/03/20 14:33:00 [employer], Weight sertraline No See Memoria 100 mg oral 2-08 Instructio l tablet 14:32: ns, TAKE 1 Shey nn 00 AND 1/2 TABLET BY MOUTH DAILY, # 45 tab, 3 Refill(s), Pharmacy: [facility] [id number], 157.48, cm, 10/03/20 14:33:00 [employer], Height, 61.165, kg, 10/03/20 14:33:00 [employer], Weight Levetiracet No = 1 tab, Me moria am 500 MG 2-08 PO, BID, # l Oral Tablet 14:30: 180 tab, 3 [place] 00 Refill(s), Pharmacy: [facility] [id number], 157.48, cm, 10/03/20 14:33:00 [employer], Height, 61.165, kg, 10/03/20 14:33:00 [employer], Weight Levetiracet 2020-11 No = 1 tab, Me moria am 500 MG 2-15 PO, BID, X l Oral Tablet 22:24: 30 day, # H ermann 00 60 tab, 4 Refill(s), Pharmacy: [facility] [id number], 157.48, cm, 10/03/20 14:33:00 [employer], Height, 61.165, kg, 10/03/20 14:33:00 [employer], Weight sertraline No See Memoria 100 mg oral 9-28 Instructio l tablet 14:18: ns, TAKE 1 Shey nn 00 AND 1/2 TABLET BY MOUTH DAILY, # 45 tab, 7 Refill(s), Pharmacy: [facility] [id number], 157.48, cm, 10/03/20 14:33:00 [employer], Height, 61.165, kg, 10/03/20 14:33:00 [employer], Weight KCL 20 mEq Yes Take by Univ ers tablet 3-26 mouth ity of 14:14: daily. [place] 23 Dose Medical unsure. Pt Branch says 500 but it generally not given in such high doses KCL 20 mEq Yes Take by Univ ers tablet 3-26 mouth ity of 14:14: daily. [place] 23 Dose Medical unsure. Pt Branch says 500 but it generally not given in such high doses KCL 20 mEq 2021-0 Yes Take by Univ ers tablet 3-26 mouth ity of 14:14: daily. [place] 23 Dose Medical unsure. Pt Branch says 500 but it generally not given in such high doses KCL 20 mEq 2021-0 Yes Take by Univ ers tablet 3-26 mouth ity of 14:14: daily. [place] 23 Dose Medical unsure. Pt Branch says 500 but it generally not given in such high doses KCL 20 mEq 2021-0 Yes Take by Univ ers tablet 3-26 mouth ity of 14:14: daily. [place] 23 Dose Medical unsure. Pt Branch says 500 but it generally not given in such high doses KCL 20 mEq 2021-0 Yes Take by Univ ers tablet 3-26 mouth ity of 14:14: daily. [place] 23 Dose Medical unsure. Pt Branch says 500 but it generally not given in such high doses KCL 20 mEq 2021-0 Yes Take by Univ ers tablet 3-26 mouth ity of 14:14: daily. [place] 23 Dose Medical unsure. Pt Branch says 500 but it generally not given in such high doses KCL 20 mEq 2021-0 Yes Take by Univ ers tablet 3-26 mouth ity of 14:14: daily. [place] 23 Dose Medical unsure. Pt Branch says 500 but it generally not given in such high doses mv-mn/iron/ 2020-0 Yes Take by Uni vers folic 1-05 mouth. ity of acid/herb 10:03: Says daxa Asad s 190 05 takes Vit Medical (VITAMIN D3 D 3 1000 Bran ch COMPLETE Units ORAL) mv-mn/iron/ 2020-0 Yes Take by Uni vers folic 1-05 mouth. ity of acid/herb 10:03: Says daxa Asad s 190 05 takes Vit Medical (VITAMIN D3 D 3 1000 Bran ch COMPLETE Units ORAL) mv-mn/iron/ 2020-0 Yes Take by Uni vers folic 1-05 mouth. ity of acid/herb 10:03: Says daxa Asad s 190 05 takes Vit Medical (VITAMIN D3 D 3 1000 Bran ch COMPLETE Units ORAL) mv-mn/iron/ 2020-0 Yes Take by Uni vers folic 1-05 mouth. ity of acid/herb 10:03: Sayannalee mantilla 190 05 takes Vit Medical (VITAMIN D3 D 3 1000 Bran ch COMPLETE Units ORAL) mv-mn/iron/ 2020-0 Yes Take by Uni vers folic 1-05 mouth. ity of acid/herb 10:03: Sayann[place]e mantilla 190 05 takes Vit Medical (VITAMIN D3 D 3 1000 Bran ch COMPLETE Units ORAL) mv-mn/iron/ 2020-0 Yes Take by Uni vers folic 1-05 mouth. ity of acid/herb 10:03: Sayannalee Chavez 05 takes Vit Medical (VITAMIN D3 D 3 1000 Bran ch COMPLETE Units ORAL) mv-mn/iron/ 2020-0 Yes Take by Uni vers folic 1-05 mouth. ity of acid/herb 10:03: Sayannalee Chavez 05 takes Vit Medical (VITAMIN D3 D 3 1000 Bran ch COMPLETE Units ORAL) mv-mn/iron/ 2020-0 Yes Take by Uni vers folic 1-05 mouth. ity of acid/herb 10:03: Sayannalee Chavez 05 takes Vit Medical (VITAMIN D3 D 3 1000 Bran ch COMPLETE Units ORAL) mv-mn/iron/ 2020-0 Yes Take by Uni vers folic 1-05 mouth. ity of acid/herb 10:03: Sayannalee Chavez 05 takes Vit Medical (VITAMIN D3 D 3 1000 Bran ch COMPLETE Units ORAL) mv-mn/iron/ 2020-0 Yes Take by Uni vers folic 1-05 mouth. ity of acid/herb 10:03: Sayannalee Chavez 05 takes Vit Medical (VITAMIN D3 D 3 1000 Bran ch COMPLETE Units ORAL) mv-mn/iron/ 2020-0 Yes Take by Uni vers folic 1-05 mouth. ity of acid/herb 10:03: Sayannalee Chavez 05 takes Vit Medical (VITAMIN D3 D 3 1000 Bran ch COMPLETE Units ORAL) mv-mn/iron/ 2020-0 Yes Take by Uni vers folic 1-05 mouth. ity of acid/herb 10:03: Sayannalee Chavez 05 takes Vit Medical (VITAMIN D3 D 3 1000 Bran ch COMPLETE Units ORAL) mv-mn/iron/ 2020-0 Yes Take by Uni vers folic 1-05 mouth. ity of acid/herb 10:03: Sayannalee Chavez 05 takes Vit Medical (VITAMIN D3 D 3 1000 Bran ch COMPLETE Units ORAL) mv-mn/iron/ 2020-0 Yes Take by Uni vers folic -05 mouth. ity of acid/herb 10:03: Sayannalee Chavez 05 takes Vit Medical (VITAMIN D3 D 3 1000 Bran ch COMPLETE Units ORAL) mv-mn/iron/ 2020-0 Yes Take by Uni vers folic -05 mouth. ity of acid/herb 10:03: Sayannalee Chavez 05 takes Vit Medical (VITAMIN D3 D 3 1000 Bran ch COMPLETE Units ORAL) mv-mn/iron/ 2020-0 Yes Take by Uni vers folic -05 mouth. ity of acid/herb 10:03: Sayannalee Chavez 05 takes Vit Medical (VITAMIN D3 D 3 1000 Bran ch COMPLETE Units ORAL) mv-mn/iron/ 0 Yes Take by Uni vers folic 05 mouth. ity of acid/herb 10:03: Sayannalee Chavez 05 takes Vit Medical (VITAMIN D3 D 3 1000 Bran ch COMPLETE Units ORAL) mv-mn/iron/ 2020-0 Yes Take by Uni vers folic -05 mouth. ity of acid/herb 10:03: Sayannalee Chavez 05 takes Vit Medical (VITAMIN D3 D 3 1000 Bran ch COMPLETE Units ORAL) mv-mn/iron/ 2020-0 Yes Take by Uni vers folic -05 mouth. ity of acid/herb 10:03: Sayannalee Chavez 05 takes Vit Medical (VITAMIN D3 D 3 1000 Bran ch COMPLETE Units ORAL) Levetiracet 2019-11 Yes 500 mg = 1 Memoria am 500 MG 12-03 tab, PO, l Oral Tablet 20:47: BID, # 60 H ermann [Keppra] 00 tab, 3 Refill(s), Pharmacy: [facility] 149, 157.48, cm, 10/03/20 14:33:00 [employer], Height, 61.165, kg, 10/03/20 14:33:00 [employer], Weight Sertraline 2019-11 Yes 150 mg = Mem oria 100 MG Oral 12-03 1.5 tab, l Tablet 20:47: PO, Daily, Shey antoine [Zoloft] 00 # 45 tab, 3 Refill(s), Pharmacy: [facility] 149, 157.48, cm, 10/03/20 14:33:00 [employer], Height, 61.165, kg, 10/03/20 14:33:00 [employer], Weight SERTraline 2020-0 Yes [id number] 100mg Take 1 [facility] 100 mg 9-08 tablet by ity of tablet 00:00: mouth [place] 00 daily. Medical Branch SERTraline 2020-0 Yes [id number] 100mg Take 1 [facility] 100 mg 9-08 tablet by ity of tablet 00:00: mouth [place] 00 daily. Medical Branch SERTraline 2020-0 Yes [id number] 100mg Take 1 [facility] 100 mg 9-08 tablet by ity of tablet 00:00: mouth [place] 00 daily. Medical Branch SERTraline 2020-0 Yes [id number] 100mg Take 1 [facility] 100 mg 9-08 tablet by ity of tablet 00:00: mouth [place] 00 daily. [facility] Branch SERTraline 2020-0 Yes [id number] 100mg Take 1 [facility] 100 mg 9-08 tablet by ity of tablet 00:00: mouth [place] 00 daily. [facility] Branch SERTraline 2020-0 Yes [id number] 100mg Take 1 [facility] 100 mg 9-08 tablet by ity of tablet 00:00: mouth [place] 00 daily. Medical Branch SERTraline 2020-0 Yes [id number] 100mg Take 1 [facility] 100 mg 9-08 tablet by ity of tablet 00:00: mouth [place] 00 daily. [facility] Branch SERTraline 2020-0 Yes [id number] 100mg Take 1 [facility] 100 mg 9-08 tablet by ity of tablet 00:00: mouth [place] 00 daily. [facility] Branch SERTraline 2020-0 Yes [id number] 100mg Take 1 [facility] 100 mg 9-08 tablet by ity of tablet 00:00: mouth [place] 00 daily. [facility] Branch SERTraline 2020-0 Yes [id number] 100mg Take 1 [facility] 100 mg 9-08 tablet by ity of tablet 00:00: mouth [place] 00 daily. [facility] Branch SERTraline 2020-0 Yes [id number] 100mg Take 1 [facility] 100 mg 9-08 tablet by ity of tablet 00:00: mouth [place] 00 daily. [facility] Branch SERTraline 2020-0 Yes [id number] 100mg Take 1 [facility] 100 mg 9-08 tablet by ity of tablet 00:00: mouth [place] 00 daily. [facility] Branch SERTraline 2020-0 Yes [id number] 100mg Take 1 [facility] 100 mg 9-08 tablet by ity of tablet 00:00: mouth [place] 00 daily. Medical Branch SERTraline 2020-0 Yes [id number] 100mg Take 1 [facility] 100 mg 9-08 tablet by ity of tablet 00:00: mouth [place] 00 daily. Medical Branch SERTraline 2020-0 Yes [id number] 100mg Take 1 [facility] 100 mg 9-08 tablet by ity of tablet 00:00: mouth [place] 00 daily. Medical Branch SERTraline 2020-0 Yes [id number] 100mg Take 1 [facility] 100 mg 9-08 tablet by ity of tablet 00:00: mouth [place] 00 daily. Medical Branch SERTraline 2020-0 Yes [id number] 100mg Take 1 [facility] 100 mg 9-08 tablet by ity of tablet 00:00: mouth [place] 00 daily. Medical Branch SERTraline 2020-0 Yes [id number] 100mg Take 1 [facility] 100 mg 9-08 tablet by ity of tablet 00:00: mouth [place] 00 daily. Medical Branch SERTraline 2020-0 Yes [id number] 100mg Take 1 [facility] 100 mg 9-08 tablet by ity of tablet 00:00: mouth [place] 00 daily. Medical Branch CETIRIZINE 2020-0 Yes Take by Univ ers HCL 7-28 mouth. ity of (CETIRIZINE 15:25: [place] ORAL) 04 Medical Branch spironolact 2020-0 Yes 50mg Take 50 mg Univers one 50 mg 7-28 by mouth ity of tablet 15:25: daily. [place] [address] Medical Branch levETIRAcet 2020-0 Yes 500mg Take 500 U nivers am 500 mg 7-28 mg by ity of tablet 15:25: mouth 2 [place] [address] (two) Medical times Branch daily. CETIRIZINE 2020-0 Yes Take by Univ ers HCL 7-28 mouth. ity of (CETIRIZINE 15:25: [place] ORAL) 04 Medical Branch spironolact 2020-0 Yes 50mg Take 50 mg Univers one 50 mg 7-28 by mouth ity of tablet 15:25: daily. [place] [address] Medical Branch levETIRAcet 2020-0 Yes 500mg Take 500 U nivers am 500 mg 7-28 mg by ity of tablet 15:25: mouth 2 [place] [address] (two) Medical times [place] daily. CETIRIZINE 2020-0 Yes Take by Univ ers HCL 7-28 mouth. ity of (CETIRIZINE 15:25: [place] ORAL) Medical Branch spironolact 2020-0 Yes 50mg Take 50 mg Univers one 50 mg 7-28 by mouth ity of tablet 15:25: daily. [place] [address] Medical Branch levETIRAcet 2020-0 Yes 500mg Take 500 U nivers am 500 mg 7-28 mg by ity of tablet 15:25: mouth 2 [place] [address] (two) Medical times [place] daily. CETIRIZINE 2020-0 Yes Take by Univ ers HCL 7-28 mouth. ity of (CETIRIZINE 15:25: [place] ORAL) Medical Branch spironolact 2020-0 Yes 50mg Take 50 mg Univers one 50 mg 7-28 by mouth ity of tablet 15:25: daily. [place] [address] Medical Branch levETIRAcet 2020-0 Yes 500mg Take 500 U nivers am 500 mg 7-28 mg by ity of tablet 15:25: mouth 2 [place] [address] (two) Medical times [place] daily. CETIRIZINE 2020-0 Yes Take by Univ ers HCL 7-28 mouth. ity of (CETIRIZINE 15:25: [place] ORAL) Medical Branch spironolact 2020-0 Yes 50mg Take 50 mg Univers one 50 mg 7-28 by mouth ity of tablet 15:25: daily. [place] [address] Medical Branch levETIRAcet 2020-0 Yes 500mg Take 500 U nivers am 500 mg 7-28 mg by ity of tablet 15:25: mouth 2 [place] [address] (two) Medical times [place] daily. CETIRIZINE 2020-0 Yes Take by Univ ers HCL 7-28 mouth. ity of (CETIRIZINE 15:25: [place] ORAL) Medical Branch spironolact 2020-0 Yes 50mg Take 50 mg Univers one 50 mg 7-28 by mouth ity of tablet 15:25: daily. [place] [address] Medical Branch levETIRAcet 2020-0 Yes 500mg Take 500 U nivers am 500 mg 7-28 mg by ity of tablet 15:25: mouth 2 [place] [address] (two) Medical times [place] daily. CETIRIZINE 2020-0 Yes Take by Univ ers HCL 7-28 mouth. ity of (CETIRIZINE 15:25: [place] ORAL) Medical Branch spironolact 2020-0 Yes 50mg Take 50 mg Univers one 50 mg 7-28 by mouth ity of tablet 15:25: daily. [place] [address] Medical Branch levETIRAcet 2020-0 Yes 500mg Take 500 U nivers am 500 mg 7-28 mg by ity of tablet 15:25: mouth 2 [place] [address] (two) Medical times [place] daily. CETIRIZINE 2020-0 Yes Take by Univ ers HCL 7-28 mouth. ity of (CETIRIZINE 15:25: [place] ORAL) Medical Branch spironolact 2020-0 Yes 50mg Take 50 mg Univers one 50 mg 7-28 by mouth ity of tablet 15:25: daily. [address] Branch levETIRAcet 2020-0 Yes 500mg Take 500 U nivers am 500 mg 7-28 mg by ity of tablet 15:25: mouth 2 [place] [address] (two) Medical times [place] daily. CETIRIZINE 2020-0 Yes Take by Univ ers HCL 7-28 mouth. ity of (CETIRIZINE 15:25: [place] ORAL) [address] [place] [address] spironolact 2020-0 Yes 50mg Take 50 mg Univers one 50 mg 7-28 by mouth ity of tablet 15:25: daily. [address] Branch levETIRAcet 2020-0 Yes 500mg Take 500 U nivers am 500 mg 7-28 mg by ity of tablet 15:25: mouth 2 [place] [address] (two) Medical times [place] daily. CETIRIZINE 2020-0 Yes Take by Univ ers HCL 7-28 mouth. ity of (CETIRIZINE 15:25: [place] ORAL) [address] [place] [address] spironolact 2020-0 Yes 50mg Take 50 mg Univers one 50 mg 7-28 by mouth ity of tablet 15:25: daily. [address] Branch levETIRAcet 2020-0 Yes 500mg Take 500 U nivers am 500 mg 7-28 mg by ity of tablet 15:25: mouth 2 [place] [address] (two) Medical times [place] daily. CETIRIZINE 2020-0 Yes Take by Univ ers HCL 7-28 mouth. ity of (CETIRIZINE 15:25: [place] ORAL) [address] [place] [address] Branch spironolact 2020-0 Yes 50mg Take 50 mg Univers one 50 mg 7-28 by mouth ity of tablet 15:25: daily. [address] levETIRAcet 2020-0 Yes 500mg Take 500 U nivers am 500 mg 7-28 mg by ity of tablet 15:25: mouth 2 [place] [address] ([facility]) Medical times [place] daily. CETIRIZINE 2020-0 Yes Take by Univ ers HCL 7-28 mouth. ity of (CETIRIZINE 15:25: [place] ORAL) [address] [place] [address] spironolact 2020-0 Yes 50mg Take 50 mg Univers one 50 mg 7-28 by mouth ity of tablet 15:25: daily. [address] Branch levETIRAcet 2020-0 Yes 500mg Take 500 U nivers am 500 mg 7-28 mg by ity of tablet 15:25: mouth 2 [place] [address] ([facility]) Medical times [place] daily. CETIRIZINE 2020-0 Yes Take by Univ ers HCL 7-28 mouth. ity of (CETIRIZINE 15:25: [place] ORAL) [address] [place] [address] Branch spironolact 2020-0 Yes 50mg Take 50 mg Univers one 50 mg 7-28 by mouth ity of tablet 15:25: daily. [address] levETIRAcet 2020-0 Yes 500mg Take 500 U nivers am 500 mg 7-28 mg by ity of tablet 15:25: mouth 2 [place] [address] ([facility]) [facility] times [place] daily. CETIRIZINE 2020-0 Yes Take by Univ ers HCL 7-28 mouth. ity of (CETIRIZINE 15:25: [place] ORAL) [address] [place] [address] Branch spironolact 2020-0 Yes 50mg Take 50 mg Univers one 50 mg 7-28 by mouth ity of tablet 15:25: daily. [address] levETIRAcet 2020-0 Yes 500mg Take 500 U nivers am 500 mg 7-28 mg by ity of tablet 15:25: mouth 2 [place] [address] ([facility]) Medical times [place] daily. CETIRIZINE 2020-0 Yes Take by Univ ers HCL 7-28 mouth. ity of (CETIRIZINE 15:25: [place] ORAL) [address] [place] [address] Branch spironolact 2020-0 Yes 50mg Take 50 mg Univers one 50 mg 7-28 by mouth ity of tablet 15:25: daily. [address] Branch levETIRAcet 2020-0 Yes 500mg Take 500 U nivers am 500 mg 7-28 mg by ity of tablet 15:25: mouth 2 [place] [address] ([facility]) Medical times [place] daily. CETIRIZINE 2020-0 Yes Take by Univ ers HCL 7-28 mouth. ity of (CETIRIZINE 15:25: [place] ORAL) [address] [place] [address] Branch spironolact 2020-0 Yes 50mg Take 50 mg Univers one 50 mg 7-28 by mouth ity of tablet 15:25: daily. [address] Branch levETIRAcet 2020-0 Yes 500mg Take 500 U nivers am 500 mg 7-28 mg by ity of tablet 15:25: mouth 2 [place] [address] (two) Medical times [place] daily. CETIRIZINE 2020-0 Yes Take by [facility] [place] ers HCL 7-28 mouth. ity of (CETIRIZINE 15:25: [place] ORAL) [address] [place] [address] spironolact 2020-0 Yes 50mg Take 50 mg Univers one 50 mg 7-28 by mouth ity of tablet 15:25: daily. [address] levETIRAcet 2020-0 Yes 500mg Take 500 U nivers am 500 mg 7-28 mg by ity of tablet 15:25: mouth 2 [place] [address] (two) Medical times [place] daily. CETIRIZINE 2020-0 Yes Take by [facility] [place] ers HCL 7-28 mouth. ity of (CETIRIZINE 15:25: [place] ORAL) [address] [place] [address] spironolact 2020-0 Yes 50mg Take 50 mg Univers one 50 mg 7-28 by mouth ity of tablet 15:25: daily. [address] levETIRAcet 2020-0 Yes 500mg Take 500 U nivers am 500 mg 7-28 mg by ity of tablet 15:25: mouth 2 [place] [address] (two) Medical times [place] daily. CETIRIZINE 2020-0 Yes Take by [facility] [place] ers HCL 7-28 mouth. ity of (CETIRIZINE 15:25: [place] ORAL) [address] [place] [address] spironolact 2020-0 Yes 50mg Take 50 mg Univers one 50 mg 7-28 by mouth ity of tablet 15:25: daily. [address] levETIRAcet 2020-0 Yes 500mg Take 500 U nivers am 500 mg 7-28 mg by ity of tablet 15:25: mouth 2 [place] [address] (two) Medical times [place] daily. Levetiracet 2020-0 Yes 500 mg = 1 Memoria am 500 MG 2-14 tab, PO, l Oral Tablet 17:37: BID, # 60 H ermann [Keppra] 00 tab, 3 Refill(s), Pharmacy: [place] [id number] Levetiracet No 500 mg = 1 Memoria am 500 MG 1-17 tab, PO, l Oral Tablet 22:41: BID, # 60 H ermann [Keppra] 00 tab, 0 Refill(s), Pharmacy: [place] [address] spironolact Yes 25 mg = 1 M emoria one 25 mg 4-30 tab, PO, l oral tablet 14:48: BID, 0 Herm naeem 00 Refill(s) potassium Yes = 1 tab, Galileo naveed chloride 20 2-13 PO, BID, # l mEq oral 14:50: 60 tab, Jesse n tablet, 27 Refill(s) extended 1, release Pharmacy: [place] [address] potassium 2017-11 No = 1 tab, [place] naveed chloride 20 2-27 PO, BID, # l mEq oral 21:59: 60 tab, 0 Herm naeem tablet, 27 Refill(s), extended Pharmacy: release [place] [address] Levetiracet 2017-11 Yes 500 mg = 1 Memoria am 500 MG 2-27 tab, PO, l Oral Tablet 21:59: BID, # 60 H ermann [Keppra] 00 tab, 3 Refill(s), Pharmacy: [place] [address] potassium 2017-11 No = 1 tab, [place] naveed chloride 20 2-20 PO, BID, # l mEq oral 14:32: 14 tab, Jesse n tablet, 08 Refill(s) extended 1, release Pharmacy: [place] [address] potassium 2017-11 No = 1 tab, [place] naveed chloride 20 2-15 PO, BID, # l mEq oral 00:37: 14 tab, Jesse n tablet, 42 Pharmacy: extended [facility] release [place] [id number] potassium 2017-11 No 20 mEq = 1 Me moria chloride 20 1-30 tab, PO, l mEq oral 00:22: BID, # 14 Herm naeem tablet, 00 tab, 0 extended Refill(s), release Pharmacy: [place] [address] Potassium 2017-11 No 350 mg, Memor ia [...] Shey nn [Zoloft] 00 0 Refill(s) propranolol 2017-0 Yes 60mg QD Take 60 mg [facility] ([facility]-[address] [place]) 60 MG 15:48: daily. [facility] 24 hr 30 l capsule propranolol 2017-0 Yes 60mg QD Take 60 mg [facility] ([facility] 8-[address] [place]) 60 MG 15:48: daily. Hospit [facility] 24 hr 30 l capsule sertraline Yes 50mg Take 50 mg [facility] (ZOLOFT) 50 7-[address] MG tablet 15:12: Hospita 32 l spironolact 2017-0 Yes 25mg Take 25 mg [facility] one 7-[address] (ALDACTONE) 15:12: Hospit a 25 MG 32 l tablet diltiazem 2017 Yes 360mg Take 360 Met hodi CD 7-[address] (CardIZEM 15:12: mouth. Hospit a CD) 360 MG 32 l 24 hr capsule cetirizine 2017 Yes 10mg Take 10 mg M [facility] (ZyrTEC) 10 7-[address] MG tablet 15:12: Hospita 32 l sertraline 2017-0 Yes 50mg Take 50 mg M [facility]i (ZOLOFT) 50 7-[address] MG tablet 15:12: Hospita 32 l spironolact 2017-0 Yes 25mg Take 25 mg [facility] one 7-[address] (ALDACTONE) 15:12: Hospit a 25 MG 32 l tablet diltiazem 20170 Yes 360mg Take 360 Met hodi CD 7-[address] (CardIZEM 15:12: mouth. Hospit a CD) 360 MG 32 l 24 hr capsule cetirizine 2017-0 Yes 10mg Take 10 mg M ethodi (ZyrTEC) 10 7-[address] MG tablet 15:12: Hospita 32 l Keppra Griffithppra Yes Na Mcbride 1 tablet Comm on [facility] Vital Signs Vital Name Observation Time Observation Value Comments Source Systolic blood 2023-01-21 20:10:00 165 mm[Hg] Univer sity of pressure [facility] Diastolic blood 2023-01-21 20:10:00 85 mm[Hg] Unive rsity of [facility] Heart rate 2023-01-21 20:10:00 60 /min [facility] Respiratory rate 2023-01-21 20:10:00 20 /[facility] 2023-01-21 20:10:00 157.5 cm [facility] Body weight 2023-01-21 20:10:00 104.327 kg [facility] BMI 2023-01-21 20:10:00 42.07 kg/m2 [facility] Oxygen saturation in 2023-01-21 20:10:00 99 /min [facility] Arterial blood by Audie [facility] Pulse oximetry Branch Body weight 2022-07-15 19:33:00 99.791 kg [facility] BMI 2022-07-15 19:33:00 40.24 kg/m2 [facility] Systolic (mm Hg) 2022-08-24 21:02:00 [facility] [place] Diastolic (mm Hg) 2022-08-24 21:02:00 [facility] [place] Heart Rate 2022-08-24 21:02:00 [facility] [place] Respitory Rate 2022-08-24 21:02:00 [facility] [place] Weight 2022-08-24 21:02:00 [facility] [place] Systolic (mm Hg) 2022-02-20 19:38:00 [facility] [place] Diastolic (mm Hg) 2022-02-20 19:38:00 [facility] [place] Heart Rate 2022-02-20 19:38:00 [facility] Respitory Rate 2022-02-20 19:38:00 [facility] [place] Systolic (mm Hg) 2021-08-01 18:24:00 [facility] [place] Diastolic (mm Hg) 2021-08-01 18:24:00 [facility] Heart Rate 2021-08-01 18:24:00 [facility] Respitory Rate 2021-08-01 18:24:00 [facility] [place] Respitory Rate 2020-10-03 19:48:00 [facility] [place] Systolic (mm Hg) 2020-10-03 19:48:00 Galileo [facility] [place] Diastolic (mm Hg) 2020-10-03 19:48:00 [facility] [place] Heart Rate 2020-10-03 19:48:00 [facility] Height 2020-10-03 19:48:00 157.48 cm [facility] Weight 2020-10-03 19:48:00 [facility] [place] BMI Calculated 2020-10-03 19:48:00 [facility] [place] Systolic (mm Hg) 2020-04-11 19:06:00 [facility] [place] Diastolic (mm Hg) 2020-04-11 19:06:00 [facility] [place] Heart Rate 2020-04-11 19:06:00 [facility] Respitory Rate 2020-04-11 19:06:00 [facility] [place] Height 2020-04-11 19:06:00 157.48 cm [facility] Systolic (mm Hg) 2020-01-12 17:04:00 [facility] [place] Diastolic (mm Hg) 2020-01-12 17:04:00 [facility] [place] Heart Rate 2020-01-12 17:04:00 [facility] Respitory Rate 2020-01-12 17:04:00 Mem[facility] [place] Height 2020-01-12 17:04:00 157.48 cm [facility] [place] Weight 2020-01-12 17:04:00 [facility] BMI Calculated 2020-01-12 17:04:00 [facility] [place] BMI Calculated 2019-03-28 14:03:00 [facility] [place] Weight 2019-03-28 14:03:00 [facility] Height 2019-03-28 14:03:00 157.48 cm [facility] [place] Systolic (mm Hg) 2019-03-28 14:03:00 Galileo [facility] [place] Diastolic (mm Hg) 2019-03-28 14:03:00 [facility] [place] Heart Rate 2019-03-28 14:03:00 [facility] Respitory Rate 2019-03-28 14:03:00 [facility] [place] Height 2018-11-24 21:38:00 157.48 cm [facility] BMI Calculated 2018-11-24 21:38:00 [facility] [place] Weight 2018-11-24 21:38:00 [facility] Heart Rate 2018-11-24 21:38:00 [facility] [place] Systolic (mm Hg) 2018-11-24 21:38:00 Galileo [facility] [place] Diastolic (mm Hg) 2018-11-24 21:38:00 Mem [facility] [place] BMI Calculated 2018-11-01 22:00:00 [facility] [place] Weight 2018-11-01 22:00:00 [facility] Height 2018-11-01 22:00:00 157.48 cm [facility] Heart Rate 2018-11-01 22:00:00 [facility] Temperature Oral (F) 2018-11-01 22:00:00 97 F [facility] [place] Systolic (mm Hg) 2018-11-01 22:00:00 Galileo [facility] [place] Diastolic (mm Hg) 2018-11-01 22:00:00 [facility] [place] Weight 2018-10-12 21:33:00 [facility] [place] BMI Calculated 2018-10-12 21:33:00 [facility] [place] Height 2018-10-12 21:33:00 157.48 cm [facility] [place] Systolic (mm Hg) 2018-10-12 21:33:00 [facility] [place] Diastolic (mm Hg) 2018-10-12 21:33:00 [facility] [place] Heart Rate 2018-10-12 21:33:00 [facility] Height 2018-08-31 20:46:00 152.4 cm [facility] [place] BMI Calculated 2018-08-31 20:46:00 Mem[facility] [place] Weight 2018-08-31 20:46:00 [facility] [place] Heart Rate 2018-08-31 20:46:00 [facility] Respitory Rate 2018-08-31 20:46:00 Mem[facility] [place] Systolic (mm Hg) 2018-08-31 20:46:00 Galileo [facility] [place] Diastolic (mm Hg) 2018-08-31 20:46:00 [facility] [place] Procedures Procedure Date / Time Performing Clinician Source Performed INSURANCE CORRESPONDENCE 2023-07-22 05:01:00 Doctor [facility]assigned[facility] ASSIGNMENT OF BENEFITS 2023-01-21 20:01:16 [facility] OU AUTOFLUORESCENCE, BOTH 2022-07-15 21:10:00 PodHelio [facility]itario [facility] OU SPECTRALIS OCT MACULA, 2022-07-15 21:04:00 [facility] OU CIRRUS OCT OPTIC 2022-07-15 21:02:00 PodHelio solitario [facility] NERVE, BOTH EYES ([id number]) Medical Branch OPHTHALMOLOGY DIAGNOSTIC 2022-07-15 05:01:00 [facility] Lavon[facility] Carpal tunnel [facility] Plan of Care Planned Activity Planned Date Details Comments Source Future Scheduled 2023-09-24 [facility] Test 11:35:37 malignant neoplasm of colon (procedure) [code = 745294784] Future Scheduled 2023-09-24 [facility] Test 11:35:37 malignant neoplasm of colon (procedure) [code = 320228664] Future Scheduled 2023-09-24 [facility] Test 11:35:37 malignant neoplasm of colon (procedure) [code = 409560109] Future Scheduled 2023-09-24 COVID-19 VACCINE (#1) Me [facility] Test 11:35:37 [code = COVID-19 VACCINE (#1)] Future Scheduled 2023-09-24 [facility]ening for [facility] Test 11:35:37 malignant neoplasm of cervix (procedure) [code = 335296783] Future Scheduled 2023-09-24 BREAST CANCER [facility] Test 11:35:37 SCREENING [code = BREAST CANCER SCREENING] Future Scheduled 2023-09-24 [facility]ening [facility] Test 11:35:37 malignant neoplasm of colon (procedure) [code = 501178270] Future Scheduled 2023-09-24 [facility]ening [facility] Test 11:35:37 malignant neoplasm of colon (procedure) [code = 636031955] Future Scheduled 2023-09-24 SHINGLES VACCINES (1 [facility] Test 11:35:37 of 2) [code = SHINGLES VACCINES (1 of 2)] Future Scheduled 2023-09-24 INFLUENZA VACCINE Method [facility] Hospital Test 11:35:37 (#1) [code = INFLUENZA VACCINE (#1)] Future Scheduled 2022-03-23 COVID-19 VACCINE (1) Met [facility] Hospital Test 15:04:14 [code = COVID-19 VACCINE (1)] Future Scheduled 2022-03-23 [facility] Test 15:04:14 malignant neoplasm of cervix (procedure) [code = 733263311] Future Scheduled 2022-03-23 [facility] Test 15:04:14 SCREENING [code = BREAST CANCER SCREENING] Future Scheduled 2022-03-[address] [facility] Test 15:04:14 [code = COLONOSCOPY SCREENING] Future Scheduled 2022-03-23 SHINGLES VACCINES Method [facility] Hospital Test 15:04:14 (#1) [code = SHINGLES VACCINES (#1)] Future Scheduled 2022-03-23 INFLUENZA VACCINE Method [facility] Test 15:04:14 [code = INFLUENZA VACCINE] Encounters Start End Encounter Admission Attending Care Care Encounter Source Date/Time Date/Time Type Type Clinicians Facility Department ID 2021-09-28 Emergency [facility] [id number] Univers 20:42:09 [facility] 2021-09-26 Emergency [facility] [id number] Univers 08:36:32 [facility] 2021-09-26 Outpatient Gianfranco SHELDON [facility] [place] [id number] Univers 08:31:15 AGUSTINA [facility] 2021-09-26 Emergency [facility] [id number] Univers 06:35:39 [facility] 2023-08-05 2023-08-06 Between BARNEY SHANNON [id number] Memoria 14:12:06 14:12:06 Visit Neurology 05 l David Garcia 2023-08-05 2023-08-06 Outpatient MARYLOUMISCHER WILMA [id number] 09:12:06 09:12:06 05 2023-07-22 2023-07-22 Outpatient Gianfranco RODRIGUEZ [facility] [id number] Univers 14:15:00 14:15:00 BIRDIE [facility] 2023-07-22 2023-07-22 Orders Doctor MAN 1.2.840.114 [id number] Univers 00:00:00 00:00:00 Only Unassigned, IDA 350.1.13.10 [facility] 4.2.7.2.686 Johnny as [phone] [address] 2023-06-27 2023-06-28 Between IE MEA [id number] Memoria 19:17:12 19:17:12 Visit Neurology 04 l David Garcia 2023-06-27 2023-06-28 Outpatient MHMISCHER MHMISCHER [id number] 14:17:12 14:17:12 04 2023-05-23 2023-05-23 Refill Michael COGILMAR 1.2.840.114 [id number] Univers 00:00:00 00:00:00 Birdie MAYSPEC 350.1.13.10 ity of IALTY 4.2.7.2.686 [facility] [id number] [address] DIABETES CLINIC 2023-03-11 2023-03-11 Telephone Michael [facility] 1.2.120.043 [id number] Univers 00:00:00 00:00:00 Birdie MAYSPEC 350.1.13.10 ity of IALTY 4.2.7.2.686 [facility] [id number] [address] DIABETES [facility] 2023-02-23 2023-02-23 Ambulatory MHIE MEA [id number] Memoria 20:00:00 20:00:00 Pre-Reg Neurology 21 l David Torresann 2023-02-23 2023-02-23 Outpatient IE IE [id number] Memoria 15:00:00 15:00:00 21 jeff Garcia 2023-02-23 2023-02-23 Outpatient MARYLOU HodgsonMISCHER MHMISCHER [id number] 15:00:00 15:00:00 Maico Garrett Almazan 2023-01-27 2023-01-27 Telephone Michael [facility] 1.2.047.778 [id number] Univers 00:00:00 00:00:00 Birdie Raymond MULTISPEC 350.1.13.10 it[place] [id number] [address] DIABETES CLINIC 2023-01-21 2023-01-21 Outpatient R MICHAEL COGILMAR [facility] [id number] Univers 14:15:00 17:05:43 BIRDIE ityoseph of [facility] 2023-01-21 2023-01-21 Inspector Receiving Vtc-Lab [facility] 1.2.840.114 [id number] Univers 14:45:00 15:00:00 Visit Birdie Rodriguez MULTISPEC 350.1.13.10 ity of IALTY 4.2.7.2.686 [facility] ARMA [id number] [address] DIABETES CLINIC 2023-01-21 2023-01-21 Office Michael [facility] 1.2.840.114 [id number] Univers 14:15:00 14:45:00 Visit Birdie Raymond MULTISPEC 350.1.13.10 ity of IALTY 4.2.7.2.686 [facility] ARMA [id number] [address] DIABETES CLINIC 2023-01-21 2023-01-21 Orders Doctor MAGDA 1.2.840.114 [id number] Univers 00:00:00 00:00:00 Only Unassigned, IDA 350.1.13.10 ity of [facility] 4.2.7.2.686 Johnny as [id number] [address] 2023-01-21 2023-01-21 Telephone Johanna [facility] 1.2.840.114 [id number] Univers 00:00:00 00:00:00 [facility] 350.1.13.10 it y of [place] NICHOLAS 4.2.7.2.686 Johnny as JAZMIN?BLEA [id number] Nm kayla[address] MEDICAL OFFICE BUILDING 2023-01-02 2023-01-02 Refill Michael [facility] 1.2.840.114 [id number] Univers 00:00:00 00:00:00 Birdie Raymond MULTISPEC 350.1.13.10 ity of IALTY 4.2.7.2.686 [facility] ARMA [id number] [address] DIABETES CLINIC 2022-12-252022-12-25 Telephone Team, [facility] MAGDA 1.2.840.114 [id number] Univers 00:00:00 00:00:00 Health IDA 350.1.13.10 it y of [facility] 4.2.7.2.686 [place] [id number] [address] 2022-11-08 2022-11-08 Rogelio Norris [facility] 1.2.518.632 [id number] Univers 00:00:00 00:00:00 Stephen B MULTISPEC 350.1.13.10 ity of [facility] 4.2.7.2.686 [facility] [id number] [facility] AND PRATIBHA [address] [place] [address] DIABETES CLINIC 2022-08-24 2022-08-25 Outpatient nullFlavo MNA [id number] Memoria 20:30:00 04:59:59 r Neurology 20 l David Garcia 2022-08-24 2022-08-24 Outpatient WILMA Hodgson [id number] 15:30:00 23:59:59 Maico 20 Tha 2022-08-24 2022-08-24 Outpatient BARNEY CORLEY [id number] Memoria 15:30:00 15:30:00 20 l Jose 2022-08-24 2022-08-24 Outpatient NIKKI CAPPS [facility] [id number] Univers 14:15:00 14:15:00 NIKKI UNDERWOOD ity [facility] 2022-08-10 2022-08-10 Telephone Johanna [facility] 1.2.840.114 [id number] Univers 00:00:00 00:00:00 [facility] 350.1.13.10 it y of [place] CARO 4.2.7.2.686 Johnny as JAZMIN?BLEA [phone] Nm mallika VELSACO [address] [place] [address] MEDICAL OFFICE BUILDING 2022-07-15 2022-07-15 Outpatient Gianfranco IGNACIO [facility] [id number] Univers 14:45:00 16:33:54 AISHAT ity of [facility] 2022-07-15 2022-07-15 Outpatient Gianfranco IGNACIO [facility] [id number] Univers 14:45:00 16:33:54 AISHAT ity [facility] 2022-07-15 2022-07-15 Office Mateus, [facility] 1.2.840.114 [id number] Univers 14:45:00 15:00:00 Visit Aishat MULTISPEC 350.1.13.10 ity of [place]esh IALTY 4.2.7.2.686 Johnny as CENTER [id number] [facility] AND [address] DIABETES CLINIC 2022-07-15 2022-07-15 Orders Doctor MAGDA 1.2.840.114 [id number] Univers 00:00:00 00:00:00 Only Unassigned, IDA 350.1.13.10 ity of [facility] 4.2.7.2.686 Johnny as [phone] [facility] [address] 2022-06-29 2022-06-29 Outpatient R RADIOLOGY [facility] [id number] Univers 13:45:49 23:59:00 ity of [facility] 2022-06-29 2022-06-29 Hospital Radiology [facility] 1.2.840.114 [id number] Univers 13:45:49 23:59:00 Encounter SPECIALTY 350.1.13.10 it[place] of [place]2.[place] AT [id number] Nm kayla[address] 2022-06-27 2022-06-27 Patient Doctor MAGDA 1.2.840.114 [id number] Univers 00:00:00 00:00:00 Secure Msg Unassigned, IDA 350.1.13.10 ity of [facility] 4.2.7.2.686 Johnny as [id number] [facility] [address] 2022-06-25 2022-06-25 Outpatient R MICHAEL [facility] [id number] Univers 14:15:00 14:15:00 BIRDIE perez [facility] 2022-06-11 2022-06-11 Rogelio Rodriguez [facility] 1.2.840.114 [id number] Univers 00:00:00 00:00:00 Birdie Raymond MULTISPEC 350.1.13.10 ity of [place] [id number] Naomi Perry [address] DIABETES CLINIC 2022-06-09 2022-06-09 Hospital Radiology [facility] 1.2.840.114 [id number] Univers 12:35:51 23:59:00 Encounter SPECIALTY 350.1.13.10 ity of C[place]2.[place] AT [id number] Nm mallika JACQUES [address] [place] 2022-06-09 2022-06-09 Hospital Radiology [facility] 1.2.840.114 [id number] Univers 12:34:05 12:34:05 Encounter SPECIALTY 350.1.13.10 ity of [place] AT [id number] Nm mallika JACQUES [address] [place] 2022-06-09 2022-06-09 Outpatient R RADIOLOGY [facility] RAD [id number] Univers 00:00:00 12:34:05 ity of [facility] 2022-06-05 2022-06-05 Patient Doctor MAGDA 1.2.840.114 [id number] Univers 00:00:00 00:00:00 Secure Msg Unassigned, IDA 350.1.13.10 ity of [facility] 4.2.7.2.686 Johnny as [phone] [place] [address] Branch 2022-05-06 2022-05-06 [facility] [id number] Univers 13:30:00 13:30:00 AIST [facility] 2022-05-06 2022-05-06 [facility] [id number] Univers 13:30:00 13:30:00 ALBINO [facility] 2022-05-05 2022-05-06 [id number] Univers 19:49:00 01:24:00 EVANGELINA perez [facility] 2022-05-05 2022-05-06 [facility] 1.2.006.457 [id number] Univers 19:49:00 01:24:00 Evangelina NICHOLAS 350.1.13.10 i ty of [place] 4.2.7.2.686 [facility] [id number] [facility] [address] 2022-05-01 2022-05-01 Telephone [facility] 1.2.840.114 [id number] Univers 00:00:00 00:00:00 [facility] 350.1.13.10 it y of [place] 4.2.7.2.686 Johnny as JAZMIN?BLEA [id number] Nm mallika [address] MEDICAL OFFICE [facility] 2022-04-08 2022-04-08 [facility] 1.2.840.114 [id number] Univers 00:00:00 00:00:00 Birdie A MULTISPEC 350.1.13.10 ity of IALTY 4.2.7.2.[address] [facility] [id number] [facility] AND [address] DIABETES CLINIC 2022-04-02 2022-04-02 Telephone [facility] 1.2.840.114 [id number] Univers 00:00:00 00:00:00 [facility] 350.1.13.10 it y of [place] 4.2.7.2.686 Johnny as JAZMIN?BLEA [id number] Nm mallika [address] OFFICE [facility] 2022-04-01 2022-04-01 Office [facility] 1.2.840.114 [id number] Univers 14:00:00 14:30:00 Visit [facility] 350.1.13.10 it y of [place] 4.2.7.2.686 Johnny as JAZMIN?BLEA [id number] Nm mallika HAHN[address] MEDICAL OFFICE [facility] 2022-04-01 2022-04-01 Outpatient Gianfranco SPENCER [facility] [id number] Univers 14:00:00 14:00:00 VIANCA yoseph [facility] 2022-04-01 2022-04-01 Outpatient Gianfranco SPENCER [facility] [id number] Univers 14:00:00 14:00:00 VIANCA yoseph [facility] 2022-04-01 2022-04-01 Orders Doctor MAN 1..840.114 [id number] Univers 00:00:00 00:00:00 Only Unassigned, IDA 350.1.13.10 [facility] 4.2.7.2.686 Johnny as [id number] [facility] [address] 2022-03-31 2022-03-31 Pre Visit MonseIANLakia 1.2.772.504 [id number] Univers 00:00:00 00:00:00 Outreach Bhakti KELLEYY 350.1.13.10 [place] of [place].686 [place] [id number] [place] [address] 2022-03-27 2022-03-27 Outpatient R JOHANNA [facility] [id number] Univers 10:30:00 10:30:00 VIANCA perez [facility] 2022-03-26 2022-03-26 Outpatient [facility] [id number] Univers 13:45:00 14:50:30 BIRDIE perez [facility] 2022-03-26 2022-03-26 [facility] 1.2.840.114 [id number] Univers 13:45:00 14:50:30 Visit Birdie KLEIN 350.1.13.10 ity of [place].686 [place] [id number] [address] DIABETES CLINIC 2022-03-25 2022-03-25 Outpatient R FLORENCIO [facility] [id number] Univers 10:00:00 10:00:00 COLLEEN perez [facility] 2022-03-25 2022-03-25 Outpatient Gianfranco MATIAS [facility] [id number] Univers 10:00:00 10:00:00 COLLEEN perez [facility] 2022-03-20 2022-03-20 Pre Visit Monse IANLakia 1.2.487.757 [id number] Univers 00:00:00 00:00:00 Outreach Bhakti KELLEYY 350.1.13.10 [place] [id number] [address] 2022-03-15 2022-03-15 Rogelio Rodriguez [facility] 1.2.840.114 [id number] Univers 00:00:00 00:00:00 Birdie Raymond MULTISPEC 350.1.13.10 ity of IALTY 4.2.7.2.[address] [facility] [id number] [address] DIABETES [facility] 2022-02-20 2022-02-21 Outpatient nullFlavo MNA [id number] Memoria 19:30:00 04:59:59 r Neurology 19 l Cooke Jose 2022-02-20 2022-02-20 Outpatient Gokul [facility]ER [facility] [id number] 14:30:00 23:59:59 Maico 19 Tha 2022-02-20 2022-02-20 Outpatient BARNEY CORLEY [id number] Memoria 14:30:00 14:30:00 19 jeff Jose 2022-01-05 2022-01-05 [facility] 1.2.840.114 [id number] Univers 00:00:00 00:00:00 Birdie MAYSPEC 350.1.13.10 [facility] 4.2.7.[facility].[address] [place] [id number] DIABETES [facility] 2021-12-09 2021-12-10 Emergency [facility] [id number] Univers 22:27:00 01:18:00 EVANGELINA ity [facility] 2021-12-09 2021-12-10 Emergency [facility] 1.2.113.508 [id number] Univers 22:27:00 01:18:00 Evangelina NICHOLAS 350.1.13.10 i ty of [place] 4.2.7.[address] [place] [address] [id number] [place] 826024 Branch 2021-11-07 2021-11-07 Outpatient R RADIOLOGY [facility] [id number] Univers 13:57:11 23:59:00 ity of [facility] 2021-11-07 2021-11-07 Hospital Radiology [facility] 1.2.840.114 [id number] Univers 13:57:11 23:59:00 Rhiannon NICHOLAS 350.1.13.10 ity of [place] 4.2.7.2.686 [facility] [id number] [facility] [address] 2021-11-07 2021-11-07 Inspector Receiving Marcus, Tim Lab Main [facility] 1.2.8 40.114 [id number] Univers 15:21:48 15:36:48 Visit Radiology ANGLEMAYANK 350.1.13.10 ity of Birdie Rodriguez 4.2.7.2.686 [facility] [id number] Nm dical NAL 353 [facility] 2021-11-07 2021-11-07 Orders Doctor MAGDA 1.2.840.114 [id number] Univers 00:00:00 00:00:00 Only Unassigned, IDA 350.1.13.10 ity of [facility] 4.2.7.2.686 Johnny as [id number] [facility] [address] 2021-09-10 2021-09-10 Refill Michael [facility] 1.2.840.114 [id number] Univers 00:00:00 00:00:00 Birdie KLEIN 350.1.13.10 ity of IALTY 4.2.7.2.686 [facility] ARMA [id number] [facility] AND [address] DIABETES CLINIC 2021-08-18 2021-08-18 Office Michael [facility] 1.2.840.114 [id number] Univers 14:12:05 15:29:17 Visit Birdie KLEIN 350.1.13.10 it[place] of [place] [id number] [facility] AND [address] DIABETES CLINIC 2021-08-18 2021-08-18 Outpatient R MICHAEL [facility] [id number] Univers 14:45:00 14:45:00 BIRDIE ity of [facility] 2021-08-18 2021-08-18 Orders Doctor MAGDA 1.2.840.114 [id number] Univers 00:00:00 00:00:00 Only Unassigned, IDA 350.1.13.10 ity of [facility] 4.2.7.2.686 Johnny as [id number] [facility] [address] 2021-08-18 2021-08-18 Orders Doctor MAN 1.2.840.[id number] [place] [address] 00:00:00 00:00:00 Only Unassigned, IDA 350.1.13.10 [facility] 4.2.7.2.686 Johnny [id number] [place] [address] Branch 2021-08-07 2021-08-07 Reffrancia Colón, Melissa [place] 1.2.840.114 [id number] Univers 00:00:00 00:00:00 MULTISPEC 350.1.13.10 [facility] 4.2.7.2.686 [facility] [phone] [address] [facility] 2021-08-07 2021-08-07 Reffrancia Colón Melissa [facility] [id number] [facility] 00:00:00 00:00:00 MULTISPEC 350.1.13.10 [facility] [id number] [facility] [phone] [address] [facility] 2021-08-01 2021-08-02 Outpatient nullFlavo MNA [id number] Memoria 18:15:00 04:59:59 r Neurology 18 l David [place] 2021-08-01 2021-08-01 Outpatient WILMA HodgsonMISCHMAICOL [id number] 13:15:00 23:59:59 Ma[place] 18 Tha 2021-08-01 2021-08-01 Outpatient MHIE MHIE [id number] [facility] 13:15:00 13:15:00 18 jeff [place] 2021-07-11 2021-07-11 Ambulatory nullFlavo MNA [id number] Memoria 20:15:00 20:15:00 Pre-Reg r Neurology 17 l David [place] 2021-07-11 2021-07-11 Outpatient MHIE MHIE [id number] [facility] 15:15:00 15:15:00 17 jeff [place] 2021-07-11 2021-07-11 Outpatient WILMA HodgsonMISCHMAICOL [id number] 15:15:00 15:15:00 Ma[place] 17 Tha 2021-07-03 2021-07-03 Ambulatory nullFlavo MNA [id number] Memoria 18:45:00 18:45:00 Pre-Reg r Neurology 16 l David Garcia 2021-07-03 2021-07-03 Outpatient MHIE IE [id number] [facility] 13:45:00 13:45:00 16 jeff Garcia 2021-07-03 2021-07-03 Outpatient ERICK HodgsonMAU ERICKSCHER [id number] 13:45:00 13:45:00 Ma[place] Tha 2021-06-23 2021-06-23 Telephone Armando [facility] 1.2.739.168 [id number] Univers 00:00:00 00:00:00 Medhat MULTISPEC 350.1.13.10 ity of [facility] 4.2.7.[address] [facility] [phone] [place] [address] [place] [facility] 2021-04-19 2021-04-19 Emergency [facility] 1.2.840.114 [id number] Univers 17:25:00 18:51:00 Jil Nicholas 350.1.13.10 ity of [place] 4.2.7.2.686 [facility] [phone] [facility] [address] 2021-04-19 2021-04-19 Emergency [facility] ERT [id number] Univers 17:25:00 18:51:00 JIL ityoseph of [facility] 2021-04-19 2021-04-19 Orders Doctor MAN 1.2.840.114 [id number] Univers 00:00:00 00:00:00 Only Unassigned, IDA 350.1.13.10 ity of [facility] 4.2.7.2.686 Johnny as [phone] [facility] 009 [address] 2021-03-27 2021-03-27 Telephone Aminah [facility] 1.2.840.114 [id number] Univers 00:00:00 00:00:00 Wondiful A Health 350.1.13.10 ity of [place] 4.2.7.2.686 Johnny as Professio [phone] [address] Office Building One 2021-03-11 2021-03-11 Orders Doctor MAN 1.2.840.114 [id number] Univers 00:00:00 00:00:00 Only Unassigned, IDA 350.1.13.10 ity of [facility] 4.2.7.2.686 Johnny as [phone] [address] 2021-03-04 2021-03-04 Outpatient R MYRNA [facility] [id number] Univers 11:30:00 11:30:00 STEPHEN ity of [facility] 2021-03-03 2021-03-03 Telephone [facility] 1.2.445.001 [id number] Univers 00:00:00 00:00:00 Colleen A Health 350.1.13.10 i ty of [place] 4.2.7.2.686 Johnny as Professio [phone] Nm dical nal [address] [place] One 2021-02-21 2021-02-21 Office Chelsea [facility] 1.2.840.114 [id number] Univers 13:53:31 14:38:24 Visit Figueroa Nicholas 350.1.13.10 i [place]2.7.2.[place] [phone] Nm dical nal [address] [place] Building 2021-02-21 2021-02-21 Outpatient R FIGUEROA LANIER [facility] 10 [id number] Univers 14:00:00 14:00:00 FIGUEROA LANIER i ty of [facility] 2021-02-04 2021-02-04 Patient Deric [facility] 1.2.840.114 [id number] Univers 00:00:00 00:00:00 [facility] 350.1.13.[address] [facility] 4.2.7.2.686 [place] [phone] Nm dical [address] [place] 2020-12-26 2020-12-26 Outpatient R FIGUEROA LANIER [facility] 10 [id number] Univers 11:00:00 11:00:00 FIGUEROA LANIER i ty of [facility] 2020-12-25 2020-12-25 Telephone [facility] 1..679.226 [id number] Univers 00:00:00 00:00:00 Colleen A Health 350.1.13.10 i ty of [place] 4.2.7.2.686 Johnny as Professio [phone] Me dical nal [address] Office Building One 2020-12-20 2020-12-20 [facility] 1.2.840.114 [id number] Univers 14:19:43 17:00:18 Visit Albino KLEIN 350.1.13.10 ity of [facility] 4.2.7.2.[address] Johnny [address] [phone] [facility] [address] [place] [facility] 2020-12-20 2020-12-20 Out[facility] [id number] Univers 14:45:00 14:45:00 AISHAT ity of [facility] 2020-12-20 2020-12-20 Orders Doctor MAGDA 1.2.840.114 [id number] Univers 00:00:00 00:00:00 Only Unassigned, IDA 350.1.13.10 ity of [facility] 4.2.7.2.686 Johnny as [phone] [facility] [address] 2020-12-03 2020-12-03 [facility] [id number] Univers 11:00:55 23:59:00 STEPHEN ity of [facility] 2020-12-03 2020-12-03 [facility] 1.2.840.114 [id number] Univers 11:00:55 23:59:00 Encounter Stephen Ragland SPECIALTY 350.1.13.10 ity of C[place] 4.2.7.2.686 [place] CENTER AT [phone] Nm dicjohana JACQUES [address] [place] 2020-12-03 2020-12-03 Inspector Receiving [facility] 1.2.840.114 [id number] Univers 10:19:11 10:34:11 Visit Medhat Roberts 350.1.13.10 ity of [place] 4.2.7.2.686 [facility] [phone] [facility] AND PRATIBHA [address] [place] [facility] 2020-12-03 2020-12-03 Office Medhat Roberts [facility] 1.2.840.114 [id number] Univers 08:55:36 10:16:31 Visit Stephen NorrisPEC 350.1.13. 10 ity of [place].2.7.2.686 [place] CENTER [phone] Naomi mcdaniels ANTONELLA PRATIBHA [address] [place] [facility] 2020-10-03 2020 Outpatient nullFlavo MNA [id number] Memoria 19:45:00 05:59:59 r Neurology 15 l David Garcia 2020-10-03 2020-10-03 Outpatient Gokul, MHMISCHER MHMISCHER [id number] 13:45:00 23:59:59 Maico 15 Tha 2020-10-03 2020-10-03 Outpatient MHIE MHIE [id number] Memoria 13:45:00 13:45:00 15 l Jose 2020-09-10 2020-09-10 Refill [facility] 1.2.840.114 [id number] Univers 00:00:00 00:00:00 Colleen Mandi [facility] 350.1.13.10 i ty of [place] 4.2.7.2.686 Johnny as Professio [phone] [facility] 044 [facility] One 2020-09-02 2020-09-02 Refill [facility] 1.2.299.587 [id number] Univers 00:00:00 00:00:00 Agustina Nicholas 350.1.13.10 i ty [place]2.7.2.[place] [phone] Nm dical nal 188 [facility] 2020-08-06 2020-08-06 Office [facility] 1.2.759.404 [id number] Univers 14:35:49 14:50:49 Visit Agustina Nicholas 350.1.13.10 i ty of [place] 4.2.7.2.686 [place] [phone] Nm dical nal 188 [facility] 2020-08-06 2020-08-06 Outpatient [facility] [id number] Univers 14:45:00 14:45:00 AGUSTINA perez of [facility] 2020-08-02 2020-08-02 Ambulatory nullFlavo MNA [id number] Memoria 20:15:00 20:15:00 Pre-Reg r Neurology 13 l David Torresann 2020-08-02 2020-08-02 Ambulatory nullFlavo MNA [id number] Memoria 20:15:00 20:15:00 Pre-Reg r Neurology 14 l David [place] 2020-08-02 2020-08-02 Outpatient MHIE MHIE [id number] Memoria 15:15:00 15:15:00 13 l [place] 2020-08-02 2020-08-02 Outpatient MHIE MHIE [id number] Memoria 15:15:00 15:15:00 14 l [place] 2020-08-02 2020-08-02 Outpatient Gokul MHMISCHER MHMISCHER [id number] 15:15:00 15:15:00 Maico 13 Tha 2020-08-02 2020-08-02 Outpatient Gokul MHMISCHER MHMISCHER [id number] 15:15:00 15:15:00 Maico 14 [facility] 2020-08-02 2020-08-02 Ref[facility] 1.2.840.114 [id number] Univers 00:00:00 00:00:00 Ravi Health 350.1.13.10 it y of [place] 4.2.7.2.686 Johnny as Professio [phone] Nm dical nal 044 [facility] One 2020-07-09 2020-07-09 Office [facility] 1.2.627.193 [id number] Univers 15:00:23 15:41:31 Visit Agustina Nicholas 350.1.13.10 i ty of [place].2.7.2.[place] [phone] Nm dical nal 377 [facility] 2020-07-09 2020-07-09 Outpatient [facility] [id number] Univers 15:00:00 15:00:00 AGUSTINA chris [facility] 2020-07-01 2020-07-01 Reffrancia [facility] 1.2.840.114 [id number] Univers 00:00:00 00:00:00 Colleen [facility] 350.1.13.10 i ty of [place] 4.2.7.2.686 Johnny as Professio [phone] Nm dical nal [address] Office Building One 2020-06-27 2020-06-27 Outpatient R EARLENE [facility] [id number] Univers 08:00:00 08:00:00 SORAIDA ity of [facility] 2020-06-26 2020-06-26 Transition Marissa Earl 1.2.840.114 [id number] Univers 00:00:00 00:00:00 of Care La Yu 350.1.13.10 i ty of [place] 4.2.7.2.686 [place] [phone] [facility] [address] 2020-06-21 2020-06-25 Emergency Shilpa Sharif [facility] 1.2.8 40.114 [id number] Univers 09:50:19 15:23:00 Joel Rivas 350.1.13.10 ity of [place] 4.2.7.2.686 [place] [phone] [facility] [address] 2020-06-21 2020-06-21 Orders Doctor MAGDA 1.2.840.114 [id number] Univers 00:00:00 00:00:00 Only Unassigned, IDA 350.1.13.10 ity of [facility] 4.2.7.2.686 Johnny as [phone] [facility] [address] [place] 2020-06-19 2020-06-19 Prep For [facility], [facility] 1.2.840.114 [id number] Univers 00:00:00 00:00:00 Surgery Laura Nicholas 350.1.13.10 ity of [place].2.7.2.686 [place] [phone] Nm dical nal 204 [facility] 2020-06-19 2020-06-19 Prep For Gramm, [facility] 1.2.840.114 [id number] Univers 00:00:00 00:00:00 Surgery Laura Nicholas 350.1.13.10 ity of [place] 4.2.7.2.686 [place] [phone] Nm dical nal 204 [facility] 2020-06-19 2020-06-19 Refill Florencio [facility] 1.2.840.114 [id number] Univers 00:00:00 00:00:00 Colleen A [facility] 350.1.13.10 i ty of [place] 4.2.7.2.686 Johnny as Professio [phone] [facility] [address] [place] One 2020-06-19 2020-06-19 Telephone [facility] 1.2.840.114 [id number] Univers 00:00:00 00:00:00 Jayla Nicholas 350.1.13.10 ity of [place] 4.2.7.2.686 [place] [phone] [facility] 044 [facility] 2020-06-18 2020-06-18 Office [facility] 1.2.515.139 [id number] 0894 Univers 16:22:50 17:16:51 Visit Agustina Nicholas 350.1.13.10 i ty of [place] 4.2.7.2.686 [place] [phone] [facility] 377 [facility] 2020-06-18 2020-06-18 Outpatient R PITO [facility] [id number] Univers 15:45:00 15:45:00 AGUSTINA ity of [facility] 2020-06-18 2020-06-18 Orders Doctor MAGDA 1.2.840.114 [id number] Univers 00:00:00 00:00:00 Only Unassigned, IDA 350.1.13.10 ity of [place] [facility] 4.2.7.2.686 Johnny as [phone] [facility] [address] 2020-06-14 2020-06-14 Transition Marissa Earl 1.2.840.114 [id number] Univers 00:00:00 00:00:00 of Care La Yu 350.1.13.10 i ty of [place] 4.2.7.2.686 [place] [phone] [facility] [address] 2020-06-11 2020-06-13 Hospital Evangelina Shabazz [facility] 1.2.840.1 14 [id number] Univers 10:00:17 15:11:00 Encounter Abdelrahman Joseph 350.1.13.10 ity of [place] 4.2.7.2.686 [place] [facility] [phone] [facility] [address] 2020-06-06 2020-06-06 Telemedici [facility]IST[facility] 1.2.840.114 [id number] Univers 12:24:48 13:04:48 ne Visit Soraida Plata DAVONPEC 350.1.13.10 ity of IALTY 4.2.7.2.[address] [facility] [phone] [facility] [place] [address] [address] [facility] 2020-06-06 2020-06-06 Outpatient R [facility]ORYBIJALCLEVEL[facility] [id number] Univers 13:00:00 13:00:00 SORAIDA perez of [facility] 2020-05-02 2020-05-02 Orders Doctor MAGDA 1.2.840.114 [id number] Univers 00:00:00 00:00:00 Only Unassigned, IDA 350.1.13.10 ity of [place] [facility] 4.2.7.2.686 Johnny as [phone] [address] 2020-04-11 2020-04-12 Outpatient nullFlavo MNA [id number] Memoria 18:30:00 04:59:59 r Neurology 12 l David Garcia 2020-04-11 2020-04-11 Outpatient MARYLOU HodgsonMISCHMAICOL MHMISCHER [id number] 13:30:00 23:59:59 Maico 12 Tha 2020-04-11 2020-04-11 Outpatient MHIE MHIE [id number] Memoria 13:30:00 13:30:00 12 l Jose 2020-04-11 2020-04-11 Orders Doctor MAGDA 1.2.840.114 [id number] Univers 00:00:00 00:00:00 Only Unassigned, IDA 350.1.13.10 ity of [place] [facility] 4.2.7.2.686 Johnny as [phone] [place] [address] [address] 2020-03-22 2020-03-22 Refill [facility] 1.2.840.114 [id number] Univers 00:00:00 00:00:00 Colleen Raymond [facility] 350.1.13.10 i ty of [place] 4.2.7.2.686 Johnny as Professio [phone] [facility] [place] Office [facility] 2020-02-26 2020-02-26 Orders Doctor MAGDA 1.2.840.114 [id number] Univers 00:00:00 00:00:00 Only Unassigned, IDA 350.1.13.10 ity of [place] [facility] 4.2.7.2.686 Johnny as [phone] [address] 2020-02-26 2020-02-26 Telephone Florencio, [facility] 1.2.571.339 [id number] Univers 00:00:00 00:00:00 Colleen A Health 350.1.13.10 i ty of [place] 4.2.7.2.686 Johnny as Professio [phone] [address] Office [facility] 2020-02-07 2020-02-07 Hospital Radiology [facility] 1.2.840.114 [id number] Univers 12:02:00 23:59:00 Encounter SPECIALTY 350.1.13.10 ity of C[place] 4.2.7.2.686 [place] CENTER AT [phone] Nm mallika JACQUES [address] [place] [address] 2020-02-07 2020-02-07 Outpatient R RADIOLOGY [facility] [id number] Univers 12:00:04 12:01:00 ity of [facility] 2020-02-07 2020-02-07 Hospital Radiology [facility] 1.2.840.114 [id number] Univers 12:00:00 12:01:00 Encounter SPECIALTY 350.1.13.10 ity of C[place] 4.2.7.2.686 [place] C[place] AT [phone] Nm mallika JACQUES [address] [place] [address] 2020-02-07 2020-02-07 [facility] 1.2.840.114 [id number] Univers 00:00:00 00:00:00 Colleen A Health 350.1.13.10 i ty of [place] 4.2.7.2.686 Johnny as Professio [phone] [address] 2020-02-02 2020-02-02 Telephone [facility] 1.2.302.156 [id number] Univers 00:00:00 00:00:00 Colleen A Health 350.1.13.10 i ty of [place] 4.2.7.2.686 Johnny as Professio [phone] [address] 2020-02-02 2020-02-02 Refill Florencio, [facility] 1.2.840.114 [id number] Univers 00:00:00 00:00:00 Colleen [facility] 350.1.13.10 i ty of [place] 4.2.7.2.686 Johnny as Professio [phone] [address] 2020-01-12 2020-01-13 Outpatient nullFlavo MNA [id number] Memoria 16:45:00 05:59:59 r Neurology 11 jeff Garcia 2020-01-12 2020-01-12 Outpatient Gokul, MHMISCHER MHMISCHER [id number] 10:45:00 23:59:59 Maico Wili Almazan 2020-01-12 2020-01-12 Outpatient MHIE MHIE [id number] Memoria 10:45:00 10:45:00 11 jeff Garcia 2019-12-18 2019-12-18 Refill Florencio, [facility] 1.2.840.114 [id number] Univers 00:00:00 00:00:00 Colleen [facility] 350.1.13.10 i ty of [place] 4.2.7.2.686 Johnny as Professio [phone] [address] 2019-10-19 2019-10-20 Outpatient nullFlavo MNA [id number] Memoria 17:30:00 05:59:59 r Neurology 10 jeff Garcia 2019-10-19 2019-10-19 Outpatient Gokul, MHMISCHER MHMISCHER [id number] 11:30:00 23:59:59 Maico Lyndon Tha 2019-10-19 2019-10-19 Outpatient MHIE MHIE [id number] Memoria 11:30:00 11:30:00 10 jeff Garcia 2019-08-08 2019-08-08 Telephone Florencio, [facility] 1.2.887.471 [id number] Univers 00:00:00 00:00:00 Colleen [place]ton 350.1.13.10 ity of [place] 4[place]2.7.2.686 [place] Profess[place] [phone] [address] 2019-07-20 2019-07-20 Orders Doctor MAGDA 1.2.840.114 [id number] Univers 00:00:00 00:00:00 Only Unassigned, IDA 350.1.13.10 ity of [place] [facility] 4.2.7.2.686 Johnny as [phone] [address] 2019-07-07 2019-07-07 Telephone [facility], [facility] 1.2.788.735 [id number] Univers 00:00:00 00:00:00 Colleen A Health 350.1.13.10 i ty of [place] 4.2.7.2.686 Johnny as Professio [phone] [address] 2019-07-06 2019-07-06 Office [facility] 1.2.840.114 [id number] Univers 14:11:11 17:05:26 Visit Carrie SPECIALTY 350.1.13.10 ity of [place] [facility] 4.2.7.2.686 [place] CENTER AT [phone] [address] 2019-07-06 2019-07-06 Refill [facility] 1.2.840.114 [id number] Univers 00:00:00 00:00:00 Colleen A [place] 350.1.13.10 ity of [place] 4.2.7.2.686 [place] Profess[place] [phone] [address] 2019-07-05 2019-07-05 Telephone [facility] 1.2.904.246 [id number] Univers 00:00:00 00:00:00 Colleen A Health 350.1.13.10 i ty of [place] 4.2.7.2.686 Johnny as Professio [phone] [address] 2019-06-28 2019-06-28 Refill [facility] 1.2.840.114 [id number] Univers 00:00:00 00:00:00 Colleen A Health 350.1.13.10 i ty of [place] 4.2.7.2.686 Johnny as Professio [phone] Nm dical nal [address] [facility] 2019-06-27 2019-06-27 Rogelio Matias [facility] 1.2.840.114 [id number] Univers 00:00:00 00:00:00 Colleen [facility] 350.1.13.10 i ty of [place] 4.2.7.2.686 Johnny as Professio [phone] Nm dicaz nal [address] [facility] 2019-04-28 2019-04-28 Ambulatory nullFlavo MNA [id number] Memoria 18:15:00 18:15:00 Pre-Reg r Neurology 09 jeff David Garcia 2019-04-28 2019-04-28 Outpatient MHIE MHIE [id number] Memoria 13:15:00 13:15:00 09 jeff Garcia 2019-04-28 2019-04-28 Outpatient WILMA Hodgson MISCHER [id number] 13:15:00 13:15:00 Maico 09 Tha 2019-03-28 2019-03-29 Outpatient nullFlavo MNA [id number] Memoria 13:45:00 04:59:59 r Neurology 08 jeff David Garcia 2019-03-28 2019-03-28 Outpatient WILMA Hodgson MHMISCHER [id number] 08:45:00 23:59:59 Maico 08 Tha 2019-03-28 2019-03-28 Outpatient MHIE MHIE [id number] Memoria 08:45:00 08:45:00 08 jeff Garcia 2019-02-27 2019-02-27 Outpatient [facility] [id number] Common 16:07:00 16:07:00 t JRKICKZ [facility] it [facility] 2019-02-17 2019-02-17 Outpatient MHIE MHIE [id number] Memoria 14:45:00 14:45:00 07 jeff Garcia 2019-02-02 2019-02-02 Outpatient MHIE MHIE [id number] Memoria 14:00:00 14:00:00 06 jeff Garcia 2018-12-02 2018-12-03 Outpatient nullFlavo MNA [id number] Memoria 21:00:00 05:59:59 r Neurology 05 l David [place] 2018-12-02 2018-12-02 Outpatient Gokul MHMISCHER MHMISCHER [id number] 15:00:00 23:59:59 Maico 05 Tha 2018-12-02 2018-12-02 Outpatient MHIE MHIE [id number] Memoria 15:00:00 15:00:00 05 [facility] 2018-11-24 2018-11-25 Outpatient nullFlavo MNA [id number] Memoria 21:30:00 05:59:59 r Neurology 02 l David [place] 2018-11-24 2018-11-24 Outpatient Gokul MHMISCHER MHMISCHER [id number] 15:30:00 23:59:59 Maico 02 Tha 2018-11-24 2018-11-24 Outpatient MHIE MHIE [id number] Memoria 15:30:00 15:30:00 02 jeff [place] 2018-11-01 2018-11-02 Outpatient nullFlavo MNA [id number] Memoria 21:30:00 05:59:59 r Neurosurger 03 l y [facility] 2018-11-01 2018-11-01 Outpatient MARYLOU MorelMISCHER MHMISCHER [id number] 15:30:00 23:59:59 [facility] 2018-11-01 2018-11-01 Ambulatory nullFlavo MNA [id number] Memoria 21:30:00 21:30:00 Pre-Reg r Neurosurger 04 l y [facility] 2018-11-01 2018-11-01 Outpatient MHIE MHIE [id number] Memoria 15:30:00 15:30:00 04 [facility] 2018-11-01 2018-11-01 Outpatient MHIE MHIE [id number] Memoria 15:30:00 15:30:00 03 [facility] 2018-11-01 2018-11-01 Outpatient [place] MHMISCHER MHMISCHER [id number] 15:30:00 15:30:00 2018-10-18 2018-10-20 Phone nullFlavo MNA [id number] Memoria 14:24:00 05:59:59 Message r Neurosurger 01 l y [facility] 2018-10-18 2018-10-19 Outpatient MHMISCHER MHMISCHER [id number] 08:24:00 23:59:59 2018-10-12 2018-10-13 Outpatient nullFlavo MNA [id number] Memoria 21:00:00 05:59:59 r Neurology 01 l David Garcia 2018-10-12 2018-10-12 Outpatient Gokul, MHMISCHER MHMISCHER [id number] 15:00:00 23:59:59 Maico 01 Tha 2018-10-12 2018-10-12 Outpatient MHIE MHIE [id number] Memoria 15:00:00 15:00:00 01 jeff Garcia 2018-09-08 2018-09-10 Phone nullFlavo MNA [id number] Memoria 19:02:00 04:59:59 Message r Neurology 00 l David Garcia 2018-09-08 2018-09-09 Outpatient MHMISCHER MHMISCHER [id number] 14:02:00 23:59:59 00 2018-08-31 2018-09-01 Outpatient nullFlavo MNA [id number] Memoria 20:15:00 04:59:59 r Neurology 00 l David Garcia 2018-08-31 2018-08-31 Outpatient Gokul, MHMISCHER MHMISCHER [id number] 15:15:00 23:59:59 Maico 00 Tha 2018-08-31 2018-08-31 Outpatient MHIE MHIE [id number] Memoria 15:15:00 15:15:00 00 jeff Garcia 2018-05-30 2018-05-30 Outpatient [facility] [id number] Common 15:46:00 15:46:00 [place] [address] [facility] 2018-05-26 2018-05-26 Outpatient [facility] [id number] Common 16:34:00 16:34:00 t [place] [address] [facility] 2018-05-26 2018-05-26 Outpatient [facility] [id number] Common 16:31:00 16:31:00 t [place] [address] [facility] 2018-05-13 2018-05-13 Outpatient [facility] [id number] Common 15:54:00 15:54:00 t [place] [address] [facility] 2018-04-26 2018-04-26 Outpatient Heath Joet [id number] Common 15:49:00 15:49:00 t [place] [address] [facility] 2018-03-28 2018-03-28 Outpatient Heath Babin [id number] Common 15:30:00 15:30:00 t [place] [address] [facility] Results This patient has no known results.
[2023-10-01 16:43] LABS: Absolute Lymphocytes (CBC) 1.2 K/uL (0.7-4.9); Hematocrit 40.7 % (36.0-45.0); Lymphocytes % 11.2 % (15.3-44.8); MCV 90.3 fL (80-100); MPV 8.6 fL (7.6-11.3); Platelets 187 thou/uL (152-406); RBC Red Blood Cell Count 4.51 M/uL (3.86-4.86)
[2023-10-01] MEDS ORDERED: FAMOTIDINE 20 MG/2 ML VIAL IV ONE (16:43)
[2023-10-01] MEDS ORDERED: ONDANSETRON 4 MG/2 ML VIAL ONE (16:43)
[2023-10-01] MEDS ORDERED: NA CHLORIDE 0.9% 500 ML ONE (16:43)
[2023-10-01] MEDS ORDERED: MORPHINE 4 MG/ML SYR ONE (16:43)
[2023-10-01 16:58] LABS: Specific Gravity 1.014 (1.005-1.030); Urine Bacteria None Seen /HPF (<20); Urine Bilirubin NEGATIVE (Negative); Urine Blood 2+ (Negative); Urine Clarity Clear (Clear); Urine Color Colorless (Yellow); Urine Glucose NEGATIVE (Negative); Urine Protein 3+ (Negative); Urine Urobilinogen Normal (Normal)
[2023-10-01 17:11] LABS: Bilirubin Total 0.5 mg/dL (0.2-1.0); Potassium 3.8 mEq/L (3.5-5.1)
[2023-10-01 17:12] LABS: Troponin High Sensitivity 169.5 pg/mL (<58.9)
--- NOTE | 2023-10-01 17:39 | RAD REPORT ---
EXAM DESCRIPTION: CT - Abdomen Pelvis Wo Contrast - 10/01/2023 5:23 pm CLINICAL HISTORY: Abdominal pain COMPARISON: 2019 TECHNIQUE: Computed axial tomography of the abdomen and pelvis was obtained. IV and oral contrast we re not requested. All CT scans are performed using dose optimization technique as appropriate and may include automated exposure control or mA/KV adjustment according to patient size. FINDINGS: The evaluation of solid organs, vessels and bowel is limited secondary to the lack of con trast administration. Liver, spleen, pancreas, left kidney and left adrenal grossly normal. Small right adrenal nodule are unchanged compatible with an adenoma. Normal appendix. No evidence of diverticulitis. A 7 x 5.4 centimeter complex cystic mass left adnexa without significant change. No free fluid. Small to moderate umbilical hernia containing fat. Right renal calculi. No hydronephrosis. Cortical irregularity involves the inferior vertebral endplate of L1 and superior vertebral endplate of L2 Rectum is mildly distended with stool IMPRESSION: Nonobstructing right renal calculi 7 x 5.4 centimeter complex cystic mass left adnexa without significant change may represent an ovaria n cystadenoma. Nonemergent endovaginal sonogram recommended for further evaluation Cortical irregularity involves the inferior vertebral endplate of L1 and superior vertebral endplate of L2. This may be degenerative in nature. Inflammation/infection can also have this appearance and s hould be correlated clinically and with appropriate lab values. MRI lumbar spine with contrast may be helpful for further evaluation
--- NOTE | 2023-10-01 17:57 | EDPHYS ---
Physician Documentation [facility] Name: Mirna Celestin Age: 62 yrs Sex: Female : 1960 Arrival Date: 10/01/2023 Time: 15:09 Bed 16 Private MD: ED Physician Aurelio Doss HPI: 10/01 15:15 This 62 yrs old Female presents to ER via Unassigned with complaints of Abdominal Pain, rn Epigastric Pain. 15:15 The patient presents with abdominal pain in the epigastric area. Onset: The rn symptoms/episode began/occurred this morning. The symptoms do not radiate. Associated signs and symptoms: Pertinent negatives: blood in stools, chest pain, constipation, diarrhea, fever, shortness of breath. The symptoms are described as crampy. Modifying factors: The symptoms are alleviated by nothing, the symptoms are aggravated by nothing. Severity of pain: At its worst the pain was moderate in the emergency department the pain is unchanged. The patient has not experienced similar symptoms in the past. The patient has not recently seen a physician. 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 - Social history:: Smoking status: Patient denies any tobacco usage or history of. - Family history:: not pertinent. - Hospitalizations: : No recent hospitalization is reported. ROS: 15:15 Constitutional: Negative for fever, chills, and weight loss, Cardiovascular: Negative rn for chest pain, palpitations, and edema, Respiratory: Negative for shortness of breath, cough, wheezing, and pleuritic chest pain, Abdomen/GI: Positive for abdominal pain Back: Negative for injury and pain, : Negative for injury, bleeding, discharge, and swelling, MS/Extremity: Negative for injury and deformity, Skin: Negative for injury, rash, and discoloration, Neuro: Negative for headache, weakness, numbness, tingling, and seizure, Exam: 15:15 Constitutional: This is a well developed, well nourished patient who is awake, alert, rn and in no acute distress. Head/Face: Normocephalic, atraumatic. Cardiovascular: Regular rate and rhythm. No pulse deficits. Respiratory: No increased work of breathing, no retractions or nasal flaring. Abdomen/GI: Soft, suprapubic and epigastric tenderness. No peritoneal signs. No distention. No masses. Skin: Warm, dry MS/ Extremity: Pulses equal, no cyanosis Neuro: Awake and alert, GCS 15 17:12 ECG was reviewed by the Attending Physician. rn Vital Signs: 15:18 BP 145 / 100; Pulse 69; Resp 16; Temp 98.5(O); Pulse Ox 99% on R/A; Weight 104.33 kg; db Height 5 ft. 2 in. ; 16:16 BP 160 / 94; Pulse 58; Resp 16; Pulse Ox 98% on R/A; db 16:30 BP 140 / 95; Pulse 56; Resp 18; Pulse Ox 99% on R/A; db 17:00 BP 148 / 78; Pulse 58; Resp 18; Pulse Ox 97% on R/A; db 17:30 BP 153 / 80; Pulse 77; Resp 16; Pulse Ox 98% on R/A; db 18:00 BP 153 / 92; Pulse 59; Resp 16; Pulse Ox 96% on R/A; db 18:30 BP 150 / 77; Pulse 56; Resp 16; Pulse Ox 97% on R/A; db 19:00 BP 149 / 77; Pulse 55; Resp 16; Pulse Ox 98% on R/A; km8 19:30 BP 144 / 84; Pulse 61; Resp 18; Pulse Ox 98% on R/A; km8 15:18 Body Mass Index 42.07 (104.33 kg, 157.48 cm) db MDM: 15:11 Patient medically screened. rn 15:51 ED course: Patient states feels much better after urinating, minimal pain but still rn pain present. Pain upon presentation seems out of proportion to just needing to urinate so we will continue work-up as planned.. 17:54 Differential diagnosis: coronary artery disease, gastritis, gastroesophageal reflux rn disease, non-specific abd pain, pancreatitis, Peptic Ulcer Disease, Perf. Duodenal Ulcer, Perf. Gastric Ulcer, Cardiac etiology, non-STEMI. Data reviewed: vital signs, nurses notes, lab test result(s), EKG, radiologic studies, CT scan, and as a result, I will admit patient. Consideration of Admission/Observation Patient was admitted/placed on observation. Escalation of care including admission/observation considered. Care significantly affected by the following chronic conditions: Hypertension. Counseling: I had a detailed discussion with the patient and/or guardian regarding the historical points, exam findings, and any diagnostic results supporting the discharge/admit diagnosis, lab results, radiology results, the need for further work-up and treatment in the hospital. Response to treatment: the patient's symptoms have markedly improved after treatment, and as a result, I will admit patient. ED course: CT without acute findings. Patient denies any new problems with the back, reports chronic back pain and bad arthritis everywhere. CT abdomen shows left adnexal cyst that she has had in the past and there has been no change in size or description. Troponin slightly positive, ECG without ischemia, will admit to hospitalist service for cardiac rule out and further evaluation.. 17:56 ED course: Patient does report on reevaluation and notification of elevated troponin rn that she has been having daily episodes of chest pain, left-sided, nonradiating.. 10/01 15:12 Order name: CBC with Diff; Complete Time: 17:09 10/01 15:12 Order name: CMP; Complete Time: 17:13 rn 10/01 15:12 Order name: Lipase; Complete Time: 17:13 rn 10/01 15:12 Order name: Urinalysis w/ reflexes; Complete Time: 17:09 10/01 15:12 Order name: Troponin High Sensitivity; Complete Time: 17:13 rn 10/01 18:59 Order name: CBC with Automated Diff [facility] 10/01 18:59 Order name: CBC with Automated Diff [facility] 10/01 18:59 Order name: Comprehensive Metabolic Panel [facility] 10/01 18:59 Order name: Comprehensive Metabolic Panel [facility] 10/01 18:59 Order name: Troponin High Sensitivity [facility] 10/01 18:59 Order name: Troponin High Sensitivity [facility] 10/01 18:59 Order name: Troponin High Sensitivity [facility] 10/01 18:59 Order name: Troponin High Sensitivity [facility] 10/01 17:25 Order name: Abdomen ; Complete Time: 17:42 [facility] 10/01 18:59 Order name: Chest Single View [facility] 10/01 15:12 Order name: EKG; Complete Time: 15:12 rn 10/01 15:12 Order name: IV Saline Lock; Complete Time: 16:45 rn 10/01 15:12 Order name: Labs collected and sent; Complete Time: 16:45 rn 10/01 15:12 Order name: EKG - Nurse/Tech; Complete Time: 16:42 rn EC:12 Rate is 52 beats/min. Rhythm is regular. QRS [place] is Normal. PA interval is normal. QRS rn interval is normal. QT interval is normal. No Q waves. T waves are Normal. No ST changes noted. Clinical impression: Sinus bradycardia. Interpreted by me. Reviewed by me. Administered Medications: 16:30 Drug: Famotidine IVP 20 mg IVP once; dilute with 10 mL 0.9% NaCl; give over 2 minutes db Route: IVP; Site: right hand; 19:43 Follow up: Response: No adverse reaction [facility] 16:30 Drug: Ondansetron IVP 4 mg IVP once; over 2 minutes Route: IVP; Site: right hand; db 19:40 Follow up: Response: No adverse reaction km8 16:30 Drug: morphine IVP or IV 4 mg IVP once over 4 mins Route: IVP; Infused Over: 4 mins; db Site: right hand; 19:39 Follow up: Response: No adverse reaction 8 16:30 Drug: NS 0.9% IV 500 ml IV at bolus once Route: IV; Rate: bolus; Site: right hand; db 19:40 Follow up: IV Status: Completed infusion; IV Intake: 500ml [facility] 18:40 Drug: Aspirin PO Chewable Tablet 324 mg PO once; 81 mg tablets x 4 Route: PO; db 19:39 Follow up: Response: No adverse reaction km8 Disposition Summary: 10/01/23 17:56 Hospitalization Ordered Notes: Hospitalization Status: Observation rn Provider: Brendon Page rn Location: Telemetry/MedSurg (observation) rn Condition: Stable rn Problem: new rn Symptoms: have improved rn Bed/Room Type: Standard rn Room Assignment: 408(10/01/23 19:15) mw Diagnosis - Upper abdominal pain, unspecified rn - Elevated troponin rn - Chest pain, unspecified rn Forms: - Medication Reconciliation Form rn - SBAR form rn - Leadership Thank You Letter rn Signatures: [facility] Leigh Ayala RN Aurelio Villanueva MD MD rn Benton, Danielle, Leyda Contreras RN, RN km8 Corrections: (The following items were deleted from the chart) 17: 15:12 Abdomen Pelvis W Con+CT.RAD.BRZ ordered. EDMS EDMS 19:15 17:56 keron trejo
--- NOTE | 2023-10-01 17:57 | ER ---
Nurse's Notes [facility] Name: Mirna Celestin Age: 62 yrs Sex: Female : 1960 Arrival Date: 10/01/2023 Time: 15:09 Bed 16 Private MD: Diagnosis: Upper abdominal pain, unspecified;Elevated troponin;Chest pain, unspecified Presentation: 10/01 15:18 Chief complaint: EMS states: PATIENT FROM HOME COMPLAINING OF MIDDLE UPPER ABD PAIN db CAUSING SHORTNESS OF BREATH AND EMS OBSERVED ANXIETY. GLUCOSE 128. Coronavirus screen: Client denies travel out of the [place] in the last 14 days. At this time, the client does not indicate any symptoms associated with coronavirus-19. Ebola Screen: Patient negative for fever greater than or equal to 101.5 degrees Fahrenheit, and additional compatible Ebola Virus Disease symptoms Patient denies exposure to infectious person. Patient denies travel to an Ebola-affected area in the 21 days before illness onset. No symptoms or risks identified at this time. Initial Sepsis Screen: Does the patient meet any 2 criteria? No. Patient's initial sepsis screen is negative. Does the patient have a suspected source of infection? No. Patient's initial sepsis screen is negative. Risk Assessment: Do you want to hurt yourself or someone else? Patient reports no desire to harm self or others. Onset of symptoms was October 01, 2023. 15:18 Method Of Arrival: EMS: [facility] db 15:18 Acuity: LEE 2 db Triage Assessment: 15:18 General: Appears in no apparent distress. uncomfortable, Behavior is cooperative, db anxious. Pain: Complains of pain in abdomen. Neuro: Level of Consciousness is awake, alert, obeys commands, Oriented to person, place, time, situation. Respiratory: Airway is patent Respiratory effort is even, unlabored, Respiratory pattern is regular, symmetrical. GI: Abdomen is non-distended. 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 - Social history:: Smoking status: Patient denies any tobacco usage or history of. - Family history:: not pertinent. - Hospitalizations: : No recent hospitalization is reported. Screenin:30 [facility] ED Fall Risk Assessment (Adult) History of falling in the last 3 months, db including since admission No falls in past 3 months (0 pts) Confusion or Disorientation No (0 pts) Intoxicated or Sedated No (0 pts) Impaired Gait No (0 pts) Mobility Assist Device Used Yes (1 pt) Altered Elimination No (0 pt) Score/Fall Risk Level 0 - 2 = Low Risk Oriented to surroundings, Maintained a safe environment. Abuse screen: Denies threats or abuse. Denies injuries from another. Nutritional screening: No deficits noted. Tuberculosis screening: No symptoms or risk factors identified. Assessment: 15:30 Reassessment: SEE TRIAGE FOR INITIAL ASSESSMENT. db 16:30 Reassessment: Patient appears in no apparent distress at this time. Patient and/or db family updated on plan of care and expected duration. Pain level reassessed. Patient is alert, oriented x 3, equal unlabored respirations, skin warm/dry/pink. 17:30 Reassessment: Patient appears in no apparent distress at this time. Patient and/or db family updated on plan of care and expected duration. Pain level reassessed. Patient is alert, oriented x 3, equal unlabored respirations, skin warm/dry/pink. 18:29 Reassessment: Patient appears in no apparent distress at this time. Patient and/or db family updated on plan of care and expected duration. Pain level reassessed. Patient is alert, oriented x 3, equal unlabored respirations, skin warm/dry/pink. PATIENT FAMILY AT BEDSIDE. PATIENT SOCIALIZING WITH FAMILY. General: Appears in no apparent distress. comfortable, Behavior is calm, cooperative. Neuro: Level of Consciousness is awake, alert, obeys commands, Oriented to person, place, time, situation, Speech is normal. Respiratory: Airway is patent Respiratory effort is even, unlabored, Respiratory pattern is regular, symmetrical. 18:51 Reassessment: Patient appears in no apparent distress at this time. db 19:14 Reassessment: Patient appears in no apparent distress at this time. No changes from km8 previously documented assessment. Patient and/or family updated on plan of care and expected duration. Pain level reassessed. Patient is alert, oriented x 3, equal unlabored respirations, skin warm/dry/pink. Neuro: Level of Consciousness is awake, alert, obeys commands, Oriented to person, place, time, situation. Cardiovascular: Denies chest pain, Capillary refill < 3 seconds Patient's skin is warm and dry. Respiratory: Airway is patent Respiratory effort is even, unlabored, Respiratory pattern is regular, symmetrical. 19:47 General: report given to LOVE Ya; nurse requesting new IV site; LOVE Munoz to try km8 new site for admission. Vital Signs: 15:18 BP 145 / 100; Pulse 69; Resp 16; Temp 98.5(O); Pulse Ox 99% on R/A; Weight 104.33 kg; db Height 5 ft. 2 in. ; 16:16 BP 160 / 94; Pulse 58; Resp 16; Pulse Ox 98% on R/A; db 16:30 BP 140 / 95; Pulse 56; Resp 18; Pulse Ox 99% on R/A; db 17:00 BP 148 / 78; Pulse 58; Resp 18; Pulse Ox 97% on R/A; db 17:30 BP 153 / 80; Pulse 77; Resp 16; Pulse Ox 98% on R/A; db 18:00 BP 153 / 92; Pulse 59; Resp 16; Pulse Ox 96% on R/A; db 18:30 BP 150 / 77; Pulse 56; Resp 16; Pulse Ox 97% on R/A; db 19:00 BP 149 / 77; Pulse 55; Resp 16; Pulse Ox 98% on R/A; km8 19:30 BP 144 / 84; Pulse 61; Resp 18; Pulse Ox 98% on R/A; km8 15:18 Body Mass Index 42.07 (104.33 kg, 157.48 cm) db ED Course: 15:11 Patient arrived in ED. rn 15:11 Aurelio Doss MD is Attending Physician. rn 15:27 Elaina Vargas, LOVE is Primary Nurse. db 15:29 Triage completed. db 15:30 Arm band placed on Patient placed in an exam room. db 15:31 Maintain EMS IV. Dressing intact. Good blood return noted. Site clean \T\ dry. Gauge \T\ db site: 22 G RIGHT HAND. 17:[address] via stretcher. nj 17:22 CT completed. Patient tolerated procedure well. nj 17:23 Patient moved back from [place]. nj 17:25 Abdomen In Process Unspecified. EDMS 17:55 Brendon Page MD is Hospitalizing Provider. rn 18:31 Patient has correct armband on for positive identification. Bed in low position. Call db light in reach. Side rails up X 1. Client placed on continuous cardiac and pulse oximetry monitoring. NIBP monitoring applied. Warm blanket given. 18:31 No provider procedures requiring assistance completed. db 19:11 Leyda Vogt RN is Primary Nurse. km8 19:55 Inserted saline lock: 20 gauge in left forearm, using aseptic technique. km8 19:56 IV discontinued, intact, bleeding controlled, No redness/swelling at site. Pressure km8 dressing applied, 22g right index finger. 19:58 Provided Education on: admission process. km8 Administered Medications: 16:30 Drug: Famotidine IVP 20 mg IVP once; dilute with 10 mL 0.9% NaCl; give over 2 minutes db Route: IVP; Site: right hand; 19:43 Follow up: Response: No adverse reaction km8 16:30 Drug: Ondansetron IVP 4 mg IVP once; over 2 minutes Route: IVP; Site: right hand; db 19:40 Follow up: Response: No adverse reaction km8 16:30 Drug: morphine IVP or IV 4 mg IVP once over 4 mins Route: IVP; Infused Over: 4 mins; db Site: right hand; 19:39 Follow up: Response: No adverse reaction km8 16:30 Drug: NS 0.9% IV 500 ml IV at bolus once Route: IV; Rate: bolus; Site: right hand; db 19:40 Follow up: IV Status: Completed infusion; IV Intake: 500ml km8 18:40 Drug: Aspirin PO Chewable Tablet 324 mg PO once; 81 mg tablets x 4 Route: PO; db 19:39 Follow up: Response: No adverse reaction km8 Medication: 18:30 VIS not applicable for this client. db Intake: 19:40 IV: 500ml; Total: 500ml. km8 Outcome: 17:56 Decision to Hospitalize by Provider. rn 19:57 Admitted to Med/surg accompanied by nurse, via stretcher, room 408, with chart, Report km8 called to LOVE Ya 19:57 Condition: stable 19:57 Discharge instructions given to patient, Instructed on the need for admit, Demonstrated understanding of instructions, 19:58 Patient left the ED. km8 Signatures: Dispatcher [employer] EDMS Aurelio Doss MD MD rn Jordan, Nathan nj Benton, Danielle, RN RN db Marx, Katie, RN RN km8 Corrections: (The following items were deleted from the chart) 19:48 19:47 General: report given to LOVE Ya. km8 km8
--- NOTE | 2023-10-01 18:50 | P.HP ---
Certification for Inpatient Patient admitted to: Observation With expected LOS: <2 Midnights Patient will require the following post-hospital care: None Practitioner: I am a practitioner with admitting privileges, knowledge of patient current condition, hospital course, and medical plan of care. Services: Services provided to patient in accordance with Admission requirements found in Title 42 Section 412.3 of the Code of Federal Regulations Patient History Date of Service: 10/01/23 Reason for admission: Epigastric Pain History of Present Illness: 62 yrs old Female with past medical history of hypertension, fibromyalgia, history of pituitary tumor, seizure disorder, history of hypokalemia who presents with complaints of Abdominal Pain and Epigastric Pain .Epigastric pain started insidiously this morning with no radiation, sharp, 8 out of 10 in severity Denies any nausea vomiting. No fever or chills. Denies any chest pain or shortness of breath. No sick contacts Patient was assessed in the ER and had a CT of the abdomen pelvis which was negative for any acute changes but the patient noted to have elevated troponin and was admitted for further management. Patient denies any history of CAD. Noted to have elevated troponin previously as well. Patient adamantly refuses any chest discomfort. Allergies cephalexin monohydrate [From Keflex] Allergy (Verified 04/22/16 01:45) Unknown codeine Allergy (Verified 04/22/16 01:45) Unknown Penicillins Allergy (Verified 04/22/16 01:46) unknown pentazocine [From Talwin] Allergy (Verified 04/22/16 01:45) Unknown Sulfa (Sulfonamide Antibiotics) Allergy (Verified 04/22/16 01:45) Unknown Home medications list reviewed: Yes Home Medications: Cetirizine HCl 10 mg PO DAILY 04/22/16 Diltiazem HCl [Diltiazem 24Hr ER] 360 mg PO DAILY 04/22/16 Etodolac [Lodine Xl] 500 mg PO BIDP PRN 04/22/16 Sertraline [Zoloft*] 150 mg PO DAILY 04/22/16 Spironolactone 25 mg PO BID #60 tablet 04/23/16 Atorvastatin Calcium [Lipitor] 40 mg PO BEDTIME #30 tab 08/11/21 levETIRAcetam [Keppra*] 500 mg PO BID #60 tab 08/11/21 - Past Medical/Surgical History Diabetic: No Past Medical History: Reviewed- Non-Contributory -: anxiety -: degenerative disk disease -: arthritis -: seizures -: pituitary tumor Past Surgical History: Reviewed- Non-Contributory -: danita - Family History Family History: Reviewed- Non-Contributory - Family History Mother -: Heart disease, Hypertension, Diabetes - Social History Smoking Status: Never smoker Alcohol use: No CD- Drugs: No Caffeine use: No Review of Systems 10-point ROS is otherwise unremarkable General: Weakness, Unremarkable Eyes: Unremarkable ENT: Unremarkable Respiratory: Unremarkable Cardiovascular: Unremarkable Gastrointestinal: Abdominal Pain Genitourinary: Unremarkable Musculoskeletal: Unremarkable Neurological: Unremarkable Lymphatics: Unremarkable Physical Examination - Vital Signs Temperature: 98.8 F Blood Pressure: 152/98 Pulse: 78 Respirations: 18 Pulse Ox (%): 98 - Physical Exam General: Alert, In no apparent distress, Oriented x3, Obese HEENT: Atraumatic, Normocephalic Neck: Supple, JVD not distended, No Thyromegaly Respiratory: Clear to auscultation bilaterally, Normal air movement Cardiovascular: No edema, Regular rate/rhythm, Normal S1 S2 Capillary refill: <2 Seconds Gastrointestinal: Normal bowel sounds, Soft and benign, W/out hepatosplenomegaly Musculoskeletal: No clubbing, No swelling Integumentary: No rashes Neurological: Normal strength at 5/5 x4 extr, Sensation intact, Cranial nerves 3-12 intact, Normal affect Lymphatics: No axilla or inguinal lymphadenopathy - Studies Laboratory Data (last 24 hrs) 10/01/23 10/01/23 16:25 16:25 WBC 10.80 Hgb 13.9 Hct 40.7 Plt Count 187 Sodium 136 Potassium 3.8 BUN 15 Creatinine 1.11 H Glucose 103 Total Bilirubin 0.5 AST 17 ALT 15 Alkaline Phosphatase 91 Lipase 170 H Assessment and Plan - Problems (Diagnosis) (1) Elevated troponin Current Visit: No Status: Acute Plan: NSTEMI Possibly type II Will trend cardiac enzymes Restart on aspirin and statin We will get a cardiology consult if troponins trending higher We will get an echocardiogram Monitor closely under telemetry (2) Epigastric pain Current Visit: Yes Status: Acute Plan: Pain resolved We will start on PPI Denies any melena or hematemesis Pain control (3) Hypertension Current Visit: No Status: Chronic Plan: Continue home medications and titrate as needed Antihypertensives titrated Hydralazine as needed Qualifiers: Hypertension type: unspecified Qualified Code(s): I10 - Essential (primary) hypertension (4) Seizures Current Visit: No Status: Chronic Plan: Continue Keppra No recent seizures noted Seizure precautions (5) H/O: pituitary tumor Current Visit: Yes Status: Chronic Plan: No acute events Denies any headache at this time (6) Elevated lipase Current Visit: Yes Status: Acute Plan: Abdominal pain resolved We will monitor lipase in a.m. We will get a lipid panel in a.m. as well History of hypokalemia Continue spironolactone Potassium monitored Discharge Plan: Home Plan to discharge in: 24 Hours - Advance Directives Does patient have a Living Will: No Does patient have a Durable POA for Healthcare: No - Code Status/Comfort Care Code Status: Full Code Physician Review: Patient Assessed, Agree with Above Assessment and Plan Time Spent Managing Pts Care (In Minutes): 46
[2023-10-01] MEDS ORDERED: ONDANSETRON 4 MG/2 ML VIAL IV PRN (18:51)
[2023-10-01] MEDS ORDERED: MORPHINE 2 MG/ML SYR IV PRN (18:51)
[2023-10-01] MEDS ORDERED: ASPIRIN 81 MG CHEWABLE TABLET ONE (18:55)
[2023-10-01] MEDS ORDERED: ETODOLAC 500 MG PO PRN (18:57)
--- NOTE | 2023-10-01 20:21 | RAD REPORT ---
EXAM DESCRIPTION: Faye Single View10/01/2023 8:03 pm CLINICAL HISTORY: Abdominal pain. Elevated troponin COMPARISON: 2020 FINDINGS: The lungs appear clear of acute infiltrate. The heart is normal size. Aorta is tortuous IMPRESSION: No acute abnormalities displayed
[2023-10-01] MEDS: ENOXAPARIN 100 MG/ML SYR SQ SCH (22:27)
[2023-10-01] MEDS: levETIRAcetam 500 MG TAB PO SCH (22:28)
[2023-10-01] MEDS: ATORVASTATIN 40 MG TAB PO SCH (22:29)
[2023-10-01] MEDS: SPIRONOLACTONE 25 MG TABLET PO SCH (22:43)
[2023-10-01] MEDS: ASPIRIN 81 MG CHEWABLE TABLET PO SCH (23:07)
[2023-10-01] MEDS: POTASSIUM CL SA 10 MEQ TAB PO SCH (23:43)
[2023-10-02 03:22] LABS: Absolute Lymphocytes (CBC) 1.8 K/uL (0.7-4.9); Hematocrit 39.2 % (36.0-45.0); Lymphocytes % 18.3 % (15.3-44.8); MCV 90.9 fL (80-100); MPV 8.9 fL (7.6-11.3); Platelets 205 thou/uL (152-406); RBC Red Blood Cell Count 4.31 M/uL (3.86-4.86)
[2023-10-02 03:40] LABS: Albumin 3.2 g/dL (3.4-5.0); Bilirubin Total 0.6 mg/dL (0.2-1.0); Potassium 4.1 mEq/L (3.5-5.1); Protein, Total 7.2 g/dL (6.4-8.2)
[2023-10-02 06:30] VITALS: BMI 42.0
--- NOTE | 2023-10-02 08:42 | P.PN ---
Subjective Date of Service: 10/02/23 Chief Complaint: Epigastric Pain Subjective: No C/O voiced (Patient refused Lovenox overnight, patient/family educated NSTEMI,troponin, Cardiolgy consult, testing, patient/family verbalized understaning agreed to take lovenox, no current co of CP) <Savi Urias - Last Filed: 10/02/23 11:02> Date of Service: 10/02/23 <Nilda Ritchie - Last Filed: 10/03/23 22:11> Review of Systems 10-point ROS is otherwise unremarkable <Savi Urias - Last Filed: 10/02/23 11:02> Physical Examination - Vital Signs Temperature: 97.3 F Blood Pressure: 188/83 Pulse: 57 Respirations: 14 Pulse Ox (%): 99 - Physical Exam General: Alert, In no apparent distress, Oriented x3, Obese HEENT: Atraumatic, Normocephalic, PERRLA Respiratory: Clear to auscultation bilaterally, Normal air movement Cardiovascular: No edema, Normal pulses, Regular rate/rhythm Capillary refill: <2 Seconds Gastrointestinal: Normal bowel sounds, Soft and benign Musculoskeletal: No clubbing, No swelling Integumentary: No rashes, No breakdown Neurological: Normal speech, Normal strength at 5/5 x4 extr - Studies Laboratory Data (last 24 hrs) 10/01/23 10/01/23 16:25 16:25 WBC 10.80 Hgb 13.9 Hct 40.7 Plt Count 187 Sodium 136 Potassium 3.8 BUN 15 Creatinine 1.11 H Glucose 103 Total Bilirubin 0.5 AST 17 ALT 15 Alkaline Phosphatase 91 Lipase 170 H <BridgettSavi - Last Filed: 10/02/23 11:02> Assessment And Plan - Plan - Problems (Diagnosis) (1) Elevated troponin Current Visit: No Status: Acute NSTEMI Possibly type II Will trend cardiac enzymes Restart on aspirin and statin cardiology consult for elevated troponins We will get an echocardiogram Monitor closely under telemetry Educated on Lovenox, patient had refused overnight, agreed to take after education with patient and family on troponins, NSTEMI today. Nonobstructing right renal calculi chronic DJD chronic Ovarian cyst chronic CT ABD IMPRESSION: Nonobstructing right renal calculi 7 x 5.4 centimeter complex cystic mass left adnexa without significant change may represent an ovarian cystadenoma. Nonemergent endovaginal sonogram recommended for further evaluation Cortical irregularity involves the inferior vertebral endplate of L1 and superior vertebral endplate of L2. This may be degenerative in nature. Inflammation/infection can also have this appearance and should be correlated clinically and with appropriate lab values. MRI lumbar spine with contrast may be helpful for further evaluatio recommend outpatient Urine ultrasound for ovarian cyst outpatient Recommend MR MRI of the lumbar spine for worsening back pain outpatient (2) Epigastric pain Current Visit: Yes Status: Acute Plan: Pain resolved We will start on PPI Denies any melena or hematemesis Pain control (3) Hypertension Current Visit: No Status: Chronic Plan: Continue home medications and titrate as needed Antihypertensives titrated Hydralazine as needed Qualifiers: Hypertension type: unspecified Qualified Code(s): I10 - Essential (primary) hypertension (4) Seizures Current Visit: No Status: Chronic Plan: Continue Keppra No recent seizures noted Seizure precautions (5) H/O: pituitary tumor Current Visit: Yes Status: Chronic Plan: No acute events Denies any headache at this time (6) Elevated lipase Current Visit: Yes Status: Acute Plan: Abdominal pain resolved We will monitor lipase in a.m. We will get a lipid panel in a.m. as well History of hypokalemia Continue spironolactone Potassium monitored Discharge Plan: Home Cardiac diet DVT Lovenox Full code Plan to discharge per cardiology eval Discharge Plan: Home - Code Status/Comfort Care Code Status: Full Code Physician Review: Patient Assessed, Agree with Above Assessment and Plan Critical Care: No Time Spent Managing PTS Care (In Minutes): 35 <Savi Urias - Last Filed: 10/02/23 11:02> Date of Service: 10/02/23 Patient was seen and examined. We will plan on getting further cardiac work-up on Wednesday. Patient with non-STEMI. Appreciate cardiology input. Continue with cardiac meds at this time. Monitor hemodynamics very closely. <Nilda Ritchie - Last Filed: 10/03/23 22:11>
[2023-10-02] MEDS: CETIRIZINE HCL 5 MG TABLET PO SCH (09:09)
[2023-10-02] MEDS: levETIRAcetam 500 MG TAB PO SCH ×2 (09:10→20:35)
[2023-10-02] MEDS: POTASSIUM CL SA 10 MEQ TAB PO SCH (09:10)
[2023-10-02] MEDS: ASPIRIN 81 MG CHEWABLE TABLET PO SCH (09:10)
[2023-10-02] MEDS: SPIRONOLACTONE 25 MG TABLET PO SCH ×2 (09:10→20:34)
[2023-10-02] MEDS: SERTRALINE HCL 50 MG TAB PO SCH (09:11)
[2023-10-02] MEDS: DILTIAZEM HCL 180 MG SR CAP PO SCH (09:13)
[2023-10-02] MEDS: ACETAMINOPHEN 500 MG TAB PO PRN ×2 (09:21→20:37)
[2023-10-02] MEDS: ENOXAPARIN 100 MG/ML SYR SQ SCH ×2 (11:07→20:35)
[2023-10-02] MEDS: LIDOCAINE 4% PATCH TOP SCH (11:12)
[2023-10-02] MEDS: ATORVASTATIN 40 MG TAB PO SCH (20:35)
--- NOTE | 2023-10-03 08:21 | P.PN ---
Subjective Date of Service: 10/03/23 Chief Complaint: Epigastric Pain Subjective: No new changes <Savi Urias - Last Filed: 10/03/23 09:55> Date of Service: 10/03/23 <RitchieNilda Pereszal - Last Filed: 10/03/23 22:10> Review of Systems 10-point ROS is otherwise unremarkable <Savi Urias - Last Filed: 10/03/23 09:55> Physical Examination - Vital Signs Temperature: 97.3 F Blood Pressure: 156/61 Pulse: 45 Respirations: 16 Pulse Ox (%): 95 - Physical Exam General: Alert, In no apparent distress, Oriented x3 HEENT: Atraumatic, Normocephalic Neck: Supple, 2+ carotid pulse no bruit Respiratory: Clear to auscultation bilaterally, Normal air movement Cardiovascular: No edema, Normal pulses, Regular rate/rhythm Capillary refill: <2 Seconds Gastrointestinal: Normal bowel sounds, Soft and benign Musculoskeletal: No clubbing, No swelling Integumentary: No rashes, No breakdown Neurological: Normal speech, Normal strength at 5/5 x4 extr <Savi Urias - Last Filed: 10/03/23 09:55> Assessment And Plan - Plan - Problems (Diagnosis) (1) Elevated troponin Current Visit: No Status: Acute NSTEMI Possibly type II Will trend cardiac enzymes Restart on aspirin and statin cardiology consult for elevated troponins We will get an echocardiogram Monitor closely under telemetry Educated on Lovenox, patient had refused overnight, agreed to take after education with patient and family on troponins, NSTEMI today. Nonobstructing right renal calculi chronic DJD chronic Ovarian cyst chronic CT ABD IMPRESSION: Nonobstructing right renal calculi 7 x 5.4 centimeter complex cystic mass left adnexa without significant change may represent an ovarian cystadenoma. Nonemergent endovaginal sonogram recommended for further evaluation Cortical irregularity involves the inferior vertebral endplate of L1 and superior vertebral endplate of L2. This may be degenerative in nature. Inflammation/infection can also have this appearance and should be correlated clinically and with appropriate lab values. MRI lumbar spine with contrast may be helpful for further evaluatio recommend outpatient Urine ultrasound for ovarian cyst outpatient Recommend MR MRI of the lumbar spine for worsening back pain outpatient (2) Epigastric pain Current Visit: Yes Status: Acute Plan: Pain resolved We will start on PPI Denies any melena or hematemesis Pain control (3) Hypertension Current Visit: No Status: Chronic Plan: Continue home medications and titrate as needed Antihypertensives titrated Hydralazine as needed Qualifiers: Hypertension type: unspecified Qualified Code(s): I10 - Essential (primary) hypertension (4) Seizures Current Visit: No Status: Chronic Plan: Continue Keppra No recent seizures noted Seizure precautions (5) H/O: pituitary tumor Current Visit: Yes Status: Chronic Plan: No acute events Denies any headache at this time (6) Elevated lipase Current Visit: Yes Status: Acute Plan: Abdominal pain resolved We will monitor lipase in a.m. We will get a lipid panel in a.m. as well History of hypokalemia Continue spironolactone Potassium monitored Discharge Plan: Home Cardiac diet DVT Lovenox Full code Plan to discharge per cardiology eval Discharge Plan: Home - Code Status/Comfort Care Code Status: Full Code Physician Review: Patient Assessed, Agree with Above Assessment and Plan Critical Care: No Time Spent Managing PTS Care (In Minutes): 35 <Savi Urias - Last Filed: 10/03/23 09:55> Date of Service: 10/03/23 Patient was seen and examined. We will plan on getting further cardiac work-up on Wednesday. Patient with non-STEMI. Appreciate cardiology input. Continue with cardiac meds at this time. Monitor hemodynamics very closely. <Nilda Ritchie - Last Filed: 10/03/23 22:10>
[2023-10-03] MEDS: levETIRAcetam 500 MG TAB PO SCH ×2 (09:45→21:50)
[2023-10-03] MEDS: POTASSIUM CL SA 10 MEQ TAB PO SCH (09:45)
[2023-10-03] MEDS: ACETAMINOPHEN 500 MG TAB PO PRN ×2 (09:45→21:51)
[2023-10-03] MEDS: SERTRALINE HCL 50 MG TAB PO SCH (09:46)
[2023-10-03] MEDS: SPIRONOLACTONE 25 MG TABLET PO SCH ×2 (09:50→21:50)
[2023-10-03] MEDS: LIDOCAINE 4% PATCH TOP SCH (09:51)
[2023-10-03] MEDS: CETIRIZINE HCL 5 MG TABLET PO SCH (09:51)
[2023-10-03] MEDS: ASPIRIN 81 MG CHEWABLE TABLET PO SCH (09:51)
[2023-10-03] MEDS: ENOXAPARIN 100 MG/ML SYR SQ SCH ×2 (09:51→21:50)
[2023-10-03] MEDS: DILTIAZEM HCL 180 MG SR CAP PO SCH (10:12)
[2023-10-03] MEDS: ATORVASTATIN 40 MG TAB PO SCH (21:50)
[2023-10-04 04:22] LABS: Magnesium 1.5 mg/dL (1.6-2.4)
[2023-10-04] MEDS ORDERED: MAGNESIUM SULFATE 1 gm IVPB 1 GM/100 ML BAG IV ONE (05:42)
[2023-10-04] MEDS ORDERED: REGADENOSON 0.4 MG/5 ML SYR IV ONE (08:32)
--- NOTE | 2023-10-04 08:56 | P.PN ---
Subjective Date of Service: 10/05/23 Chief Complaint: Epigastric Pain, scheduled for stress test today. Subjective: No new changes, Improving Physical Examination - Vital Signs Temperature: 97.2 F Blood Pressure: 143/63 Pulse: 63 Respirations: 18 Pulse Ox (%): 95 - Physical Exam General: Alert, Oriented x3 HEENT: Atraumatic Neck: Supple Respiratory: Normal air movement Cardiovascular: Regular rate/rhythm, Normal S1 S2 Gastrointestinal: Soft and benign Musculoskeletal: No swelling Neurological: Normal speech Assessment And Plan - Plan Hypertension: Fairly controlled blood pressure. Antihypertensive medications. CAD: Cardiac Stress test planned for today. Continue Plavix, aspirin and statin therapy. NSTEMI: Management as above etiology of the hx of Pituitary tumor: Management as outpatient Hyperlipidemia: Statin therapy, continued Prophylaxis: Lovenox for DVT prophylaxis Disposition:For possible DC after stress test is done and plan of care is finalized. Physician Review: Patient Assessed, Agree with Above Assessment and Plan
[2023-10-04] MEDS: POTASSIUM CL SA 10 MEQ TAB PO SCH (09:00)
--- NOTE | 2023-10-04 11:57 | RAD REPORT ---
EXAM DESCRIPTION: NM - Rest Stress Cardiac Imaging - 10/04/2023 11:47 am CLINICAL HISTORY: elevated troponin Chest pain. COMPARISON: No comparisons TECHNIQUE: The patient was administered approximately 10mCi of Tc 99m Sestamibi prior to resting SPE CT imaging of the heart. The patient was then administered approximately 30 mCi of Tc 99m Sestamibi f ollowing exercise or pharmacologic stress. Multiplanar SPECT images were reviewed. FINDINGS: There is a small area of mild stress-induced ischemia involving the LV anterior wall near the apex. No fixed defect is seen to suggest hibernating myocardium or scarred myocardium. The end diastolic volume is 93 ml, the end systolic volume is 30 ml, and the ejection fraction is 68 %. IMPRESSION: Small area of mild stress-induced ischemia involving the LV anterior wall near the apex.
[2023-10-04] MEDS: CETIRIZINE HCL 5 MG TABLET PO SCH (13:45)
[2023-10-04] MEDS: ENOXAPARIN 100 MG/ML SYR SQ SCH ×2 (13:45→21:16)
[2023-10-04] MEDS: SERTRALINE HCL 50 MG TAB PO SCH (13:45)
[2023-10-04] MEDS: DILTIAZEM HCL 180 MG SR CAP PO SCH (13:45)
[2023-10-04] MEDS: levETIRAcetam 500 MG TAB PO SCH ×2 (13:46→21:16)
[2023-10-04] MEDS: LIDOCAINE 4% PATCH TOP SCH (13:47)
[2023-10-04] MEDS: SPIRONOLACTONE 25 MG TABLET PO SCH ×2 (13:50→21:16)
[2023-10-04] MEDS: ASPIRIN 81 MG CHEWABLE TABLET PO SCH (13:53)
[2023-10-04] MEDS: ACETAMINOPHEN 500 MG TAB PO PRN (21:16)
[2023-10-04] MEDS: ATORVASTATIN 40 MG TAB PO SCH (21:16)
[2023-10-05] MEDS: ENOXAPARIN 100 MG/ML SYR SQ SCH ×2 (06:28→09:55)
[2023-10-05] MEDS: LIDOCAINE 4% PATCH TOP SCH (09:00)
[2023-10-05] MEDS: SERTRALINE HCL 50 MG TAB PO SCH (09:53)
[2023-10-05] MEDS: CETIRIZINE HCL 5 MG TABLET PO SCH (09:53)
[2023-10-05] MEDS: POTASSIUM CL SA 10 MEQ TAB PO SCH ×3 (09:53→10:03)
[2023-10-05] MEDS: levETIRAcetam 500 MG TAB PO SCH (09:53)
[2023-10-05] MEDS: DILTIAZEM HCL 180 MG SR CAP PO SCH (09:55)
[2023-10-05] MEDS: SPIRONOLACTONE 25 MG TABLET PO SCH (09:56)
[2023-10-05] MEDS: ASPIRIN 81 MG CHEWABLE TABLET PO SCH (10:10)
--- NOTE | 2023-10-05 11:25 | P.PN ---
Subjective Date of Service: 10/05/23 Chief Complaint: Epigastric Pain Subjective: No new changes, Improving Physical Examination - Vital Signs Temperature: 98.9 F Blood Pressure: 170/75 Pulse: 54 Respirations: 16 Pulse Ox (%): 93 - Physical Exam General: Alert, Oriented x3 HEENT: Atraumatic Neck: Supple Respiratory: Normal air movement Cardiovascular: Regular rate/rhythm, Normal S1 S2 Gastrointestinal: Soft and benign Musculoskeletal: No swelling Neurological: Normal speech, Normal strength at 5/5 x4 extr Assessment And Plan - Plan Hypertension: CAD: NSTEMI: hx of Pituitary tumor: Hyperlipidemia: Prophylaxis: Disposition: Physician Review: Patient Assessed, Agree with Above Assessment and Plan
[2023-10-05 14:15] VITALS: O2SAT 98
--- NOTE | 2023-10-05 15:56 | P.DS ---
Admission Date: 10/02/23 Discharge Date: 10/05/23 Disposition: ROUTINE DISCHARGE Discharge Condition: GOOD Reason for Admission: Epigastric Pain, scheduled for stress test today. Brief History of Present Illness: 63-year-old female patient with medical history significant for hypertension, hyperlipidemia admitted for management of chest pain. Hospital Course: Patient was put into the acute medicine service and a troponin trended. She also had elevated troponin and was diagnosed with NSTEMI. She had cardiac work- up by skewer up with echocardiogram and stress test which was deemed mildly abnormal. After much review and evaluation of echocardiogram among other testing patient was deemed stable for discharge home to continue with statin therapy, aspirin and follow-up with cardiology on outpatient basis. She did not have a repeat chest pain episode while admitted. Vital Signs/Physical Exam: Temp Pulse Resp BP Pulse Ox 97.2 F 63 18 143/63 H 95 10/05/23 15:50 10/05/23 15:50 10/05/23 15:50 10/05/23 15:50 10/05/23 15:50 General: Alert, Oriented x3 HEENT: Atraumatic Neck: Supple Respiratory: Normal air movement Cardiovascular: Regular rate/rhythm, Normal S1 S2 Gastrointestinal: Soft and benign Musculoskeletal: No swelling Neurological: Normal speech, Normal strength at 5/5 x4 extr Laboratory Data at Discharge: WBC 10.00 thou/uL (4.3-10.9) 10/02/23 02:58 Hgb 13.1 g/dL (12.0-15.0) 10/02/23 02:58 Hct 39.2 % (36.0-45.0) 10/02/23 02:58 Plt Count 205 thou/uL (152-406) 10/02/23 02:58 Sodium 138 mEq/L (136-145) 10/04/23 03:19 Potassium 4.0 mEq/L (3.5-5.1) 10/04/23 03:19 BUN 19 mg/dL (7-18) H 10/04/23 03:19 Creatinine 1.18 mg/dL (0.55-1.02) H 10/04/23 03:19 Glucose 97 mg/dL (74-106) 10/04/23 03:19 Phosphorus 3.0 mg/dL (2.5-4.9) 10/04/23 03:19 Magnesium 1.5 mg/dL (1.6-2.4) L 10/04/23 03:19 Total Bilirubin 0.6 mg/dL (0.2-1.0) 10/02/23 02:58 AST 14 U/L (15-37) L 10/02/23 02:58 ALT 14 U/L (13-56) 10/02/23 02:58 Alkaline Phosphatase 94 U/L (45-117) 10/02/23 02:58 Lipase 170 U/L (13-75) H 10/01/23 16:25 Home Medications: Cetirizine HCl [Zyrtec] 10 mg PO DAILY 10/01/23 Hydroxychloroquine [Plaquenil*] 200 mg PO BID 10/01/23 Levetiracetam [Keppra] 500 mg PO BID 10/01/23 Potassium Chloride 20 meq PO DAILY 10/01/23 Sertraline [Zoloft*] 100 mg PO DAILY 10/01/23 Spironolactone 50 mg PO DAILY 10/01/23 Aspirin Chewable [Aspirin Chewable*] 81 mg PO DAILY #30 tab.chew 10/03/23 Atorvastatin Calcium [Lipitor] 40 mg PO BEDTIME #30 tab 10/03/23 Diltiazem Cd [Cardizem Cd] 180 mg PO DAILY #30 cap 10/03/23 Etodolac [Lodine Xl] 500 mg PO BIDP PRN #20 10/03/23 Lidocaine 4% Patch [Lidoderm 5% Patch*] 1 patch TOP DAILY #30 pat 10/03/23 New Medications: Aspirin Chewable [Aspirin Chewable*] 81 mg PO DAILY #30 tab.chew Diltiazem Cd [Cardizem Cd] 180 mg PO DAILY #30 cap Etodolac [Lodine Xl] 500 mg PO BIDP PRN #20 PRN Reason: Pain Scale 5-7 (Moderate) Lidocaine 4% Patch [Lidoderm 5% Patch*] 1 patch TOP DAILY #30 pat Atorvastatin Calcium [Lipitor] 40 mg PO BEDTIME #30 tab Physician Discharge Instructions: OK TO DC IV AND DC HOME FOLLOW-UP WITH PRIMARY CARE PROVIDER IN 1-2 WEEKS FOLLOW-UP WITH CARDIOLOGY IN 1-2 WEEKS Outpatient follow-up with Neurology in 1 to 2 weeks for seizure evaluation with EEG Outpatient follow-up with OB-PNEUMATIC JACK OPERATOR or Gynecologic Oncologists to further evaluate 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 RETURN TO THE ER IF Symptoms worsen CALL DR. DAVIS AT [phone] IF ANY QUESTIONS REGARDING HOSPITAL STAY. PLEASE CALL THE FLOOR AT [phone] IF ANY MEDICATION OR NURSING QUESTIONS. Diet: AHA Activity: Fall precautions Followup: Loc Randall DO [Primary Care Provider] -
[2023-10-05 16:29] VITALS: BP 179/83; TEMP 98
--- NOTE | 2023-10-06 09:13 | ECHO ---
HEIGHT: 5 ft 2 in WEIGHT: 230 lb 0 oz DATE OF STUDY: 10/04/[address]: John Paul Cody 2-DIMENSIONAL: YES M.MODE: YES DOPPLER: YES COLOR FLOW: YES TDS: PORTABLE: YES DEFINITY: BUBBLE STUDY: DIAGNOSIS: ELEVATED TROPONIN CARDIAC HISTORY: CATHERIZATION: SURGERY: PROSTHETIC VALVE: PACEMAKER: MEASUREMENTS (cm) DIASTOLIC (NORMALS) SYSTOLIC (NORMALS) IVSd 1.1 (0.6-1.2) LA Diam 3.5 (1.9-4.0) LVEF 67% LVIDd 4.1 (3.5-5.7) LVIDs 2.6 (2.0-3.5) %FS 36% LVPWd 1.2 (0.6-1.2) Ao Diam 3.6 (2.0-3.7) 2 DIMENSIONAL ASSESSMENT: RIGHT ATRIUM: NORMAL LEFT ATRIUM: NORMAL RIGHT VENTRICLE: NORMAL LEFT VENTRICLE: NORMAL TRICUSPID VALVE: NORMAL MITRAL VALVE: NORMAL PULMONIC VALVE: NORMAL AORTIC VALVE: NORMAL PERICARDIAL EFFUSION: NONE AORTIC ROOT: NORMAL LEFT VENTRICULAR WALL MOTION: NORMAL DOPPLER/COLOR FLOW: SEE BELOW COMMENTS: 1. NORMAL LEFT VENTRICULAR EJECTION FRACTION 60-65% 2. GRADE I DIASTOLIC DYSFUNCTION 3. NORMAL WALL MOTION 4. MILD TRICUSPID REGURGITATION TECHNOLOGIST: МАРИНА ROACH
--- NOTE | 2023-10-06 09:26 | TREADPHA ---
DX: ELEVATED TROPONIN Date of Study: 10/04/2023 Ht: 5' 2 " Wt: 230 lb 0 oz Consulting Physician: MICHELLE MEDICATIONS: TYLENOL, ASPIRIN, LIPITOR, ZYRTEC, CARDIZEM, LOVENOX, KEPPRA, MORPHINE, ZOFRAN, KLOR-CON, ZOLOFT, ALDACTONE HISTORY: 62 YEAR OLD FEMALE WITH COMPLAINTS OF SEIZURE ACTIVITY. HISTORY OF HYPOKALEMIA, SEIZURES PHYSICIAL EXAMINATION: RESTING B.P.: 148/79 RESTING H.R.: 54 RESTING EKG: SINUS RHYTHM WITH OCCASIONAL PREMATURE VENTRICULAR COMPLEXES PROTOCOL: PHARMACOLOGIC EXERCISE TIME: 3:30 B.P. AT PEAK STRESS: 160/73 IMPRESSION: LEXISCAN INJECTED. CARDIOLITE INJECTED - SEE NUCLEAR MEDICINE REPORT. NO SUPRAVENTRIUCLAR TACHYCARDIA, VENTRICULAR TACHYCARDIA, PREMATURE ATRIAL COMPLEXES NOTED. SINUS RHYTHM WITH OCCASIONAL PREMATURE VENTRICULAR COMPLEXES. PATIENT DENIES CHEST PAIN. NO ELECTROCARDIOGRAM CHANGES OF ISCHEMIA WITH LEXISCAN.
== END 2023-10-05 18:54 | disposition home or self-care (01) | DRG 281 ==
LOC: ER 15:09 → ERHOLD 18:52 → 4TH 19:39 → OBSVTOIN 10-02 09:59
PROVIDERS: ADMIT Family Medicine; ATTEND Internal Medicine Nephrology
DX: I21.4 Non-ST elevation (NSTEMI) myocardial infarction (principal); Z68.41 Body mass index [BMI] 40.0-44.9, adult; E66.9 Obesity, unspecified; I10 Essential (primary) hypertension; N20.0 Calculus of kidney; E87.6 Hypokalemia; M79.7 Fibromyalgia; M19.90 Unspecified osteoarthritis, unspecified site; N83.209 Unspecified ovarian cyst, unspecified side; R56.9 Unspecified convulsions; R77.8 Other specified abnormalities of plasma proteins; Z88.5 Allergy status to narcotic agent; Z88.0 Allergy status to penicillin; Z88.2 Allergy status to sulfonamides; Z88.8 Allergy status to other drugs, medicaments and biological substances; Z79.82 Long term (current) use of aspirin; Z79.899 Other long term (current) drug therapy
CPT/HCPCS: 36415; 71045; 74176; 78452; 80048; 80053; 81001; 83690; 83735; 84100; 84484; 85025; 93005; 93017; 93306; 94760; 96361; 96374; 96375; 99285; A9500; G0378; J1650; J2001; J2405; J2785; J3475; J7040

== ENCOUNTER 2024-09-07 13:25 | Emergency (ER) | payer OTHER ==
[2024-09-07] MEDS ORDERED: LEVETIRACETAM 500 MG/5 ML VIAL IV ONE (13:54)
[2024-09-07] MEDS ORDERED: NA CHLORIDE 0.9% 100 ML ONE (13:55)
[2024-09-07] MEDS ORDERED: NA CHLORIDE 0.9% 1,000 ML ONE (13:55)
[2024-09-07 14:35] LABS: Specific Gravity 1.011 (1.005-1.030); Sqamous Epithelial <5 /HPF (None Seen); Transitional Epithelial <5 /HPF (None Seen); Urine Bacteria <20 /HPF (<20); Urine Bilirubin NEGATIVE (Negative); Urine Blood 2+ (Negative); Urine Clarity Extremely Turbid (Clear); Urine Color Light-Yellow (Yellow); Urine Culture Reflex Order REFLEXED; Urine Glucose NEGATIVE (Negative); Urine Ketones NEGATIVE (Negative); Urine Microscopic Reflex YN ORDER UMIC; Urine Mucus Slight /HPF (None Seen); Urine Nitrite NEGATIVE (Negative); Urine Protein 2+ (Negative); Urine Urobilinogen Normal (Normal); Urine pH 5.5 (5.0-7.0)
--- NOTE | 2024-09-07 14:46 | RAD REPORT ---
EXAMINATION: ONE VIEW CHEST XR CLINICAL INDICATION: Female, 63 years old.COUGH TECHNIQUE: 1 View, AP supine, X-ray of the chest was performed. [id number]. COMPARISON: 12/15/2023 FINDINGS: Lungs and pleura: Clear lungs. No effusion. Heart and mediastinum: Normal heart size. Unremarkable mediastinal contours. Osseous structures: No acute abnormality. Tubes/lines: None Other: None. IMPRESSION: No acute intrathoracic abnormality.
--- NOTE | 2024-09-07 15:04 | RAD REPORT ---
EXAM: Knee Left 3 View INDICATION: PAIN COMPARISON: None FINDINGS: No acute fracture. No significant knee effusion. Tricompartmental degenerative changes with moderate to severe medial compartment and moderate lateral compartment joint space narrowing with sclerosis and spurring. Moderate patellofemoral compartment spurring. Other: n/a IMPRESSION: No evidence of acute osseous abnormality involving the imaged knee.
--- NOTE | 2024-09-07 15:53 | ER ---
Nurse's Notes [facility] Name: Mirna Celestin Age: 63 yrs Sex: Female : 1960 Arrival Date: 09/07/2024 Time: 13:25 Bed 2 Private MD: Diagnosis: Epileptic seizures related to external causes, not intractable Presentation: 09/07 13:38 Chief complaint: EMS states: family found patient in bathroom, suspecting a seizure. tm6 Upon EMS arrival, patient A\\T\\Ox4. Coronavirus screen: Client denies travel out of the [place] in the last 14 days. Ebola Screen: Patient negative for fever greater than or equal to 101.5 degrees Fahrenheit, and additional compatible Ebola Virus Disease symptoms Patient denies exposure to infectious person. Patient denies travel to an Ebola-affected area in the 21 days before illness onset. No symptoms or risks identified at this time. Initial Sepsis Screen: Does the patient meet any 2 criteria? RR > 20 per min. No. Patient's initial sepsis screen is negative. Does the patient have a suspected source of infection? No. Patient's initial sepsis screen is negative. Risk Assessment: Do you want to hurt yourself or someone else? Patient reports no desire to harm self or others. Onset of symptoms was September 07, 2024. 13:38 Method Of Arrival: EMS: [facility] tm6 13:38 Acuity: LEE 3 tm6 13:51 Care prior to arrival: Medication(s) given: 2mg ativan IM. tm6 Triage Assessment: 13:48 General: Appears in no apparent distress. uncomfortable, Behavior is cooperative. tm6 Pain:. Pain: Complains of pain in lateral aspect of left wrist and left knee Pain currently is 8 out of 10 on a pain scale. EENT: No signs and/or symptoms were reported regarding the EENT system. Neuro: Level of Consciousness is awake, alert, obeys commands. Neuro: Seizure activity reported prior to arrival. unwitnessed. Cardiovascular: Patient's skin is warm and dry. Respiratory: Airway is patent Respiratory effort is even, unlabored, Respiratory pattern is regular, symmetrical. GI: Abdomen is round. : No signs and/or symptoms were reported regarding the genitourinary system. Derm: No signs and/or symptoms reported regarding the dermatologic system. Musculoskeletal: Reports pain in lateral aspect of left wrist and left knee. Historical: - Allergies: 13:48 Codeine; tm6 13:48 Keflex; tm6 13:48 PENICILLINS; tm6 13:48 Sulfa (Sulfonamide Antibiotics); tm6 13:48 Talwin; tm6 - PMHx: 13:48 Anxiety; Arthritis; Hypertension; Seizures; tumor on pituitary; tm6 - PSHx: 13:48 None; tm6 - Immunization history:: Client reports having NOT received the Covid vaccine. - Infectious Disease History:: Denies. - Social history:: Smoking status: Patient denies any tobacco usage or history of. Patient/guardian denies using alcohol. - Family history:: not pertinent. Screenin:54 [facility] ED Fall Risk Assessment (Adult) History of falling in the last 3 months, tm6 including since admission No falls in past 3 months (0 pts) Confusion or Disorientation No (0 pts) Intoxicated or Sedated No (0 pts) Impaired Gait No (0 pts) Mobility Assist Device Used No (0 pt) Altered Elimination No (0 pt) Score/Fall Risk Level 0 - 2 = Low Risk Oriented to surroundings, Maintained a safe environment, Educated pt \\T\\ family on fall prevention, incl call for assistance when getting out of bed. Abuse screen: Denies threats or abuse. Denies injuries from another. Nutritional screening: No deficits noted. Tuberculosis screening: No symptoms or risk factors identified. Assessment: 14:04 Reassessment: see triage assessment. tm6 14:54 Reassessment: Patient and/or family updated on plan of care and expected duration. Pain tm6 level reassessed. Patient is alert, oriented x 3, equal unlabored respirations, skin warm/dry/pink. 15:01 Reassessment: Patient appears in no apparent distress at this time. Patient and/or ph family updated on plan of care and expected duration. Pain level reassessed. Patient is alert, oriented x 3, equal unlabored respirations, skin warm/dry/pink. 15:13 Reassessment: Pt states, " I need a wheelchair and for you to unhook her. I'm ph going to take her to [place] because that's where her doctors are. The ambulance wouldn't take her there.". Reassessment: Pt refusing further IV attempts, again states that she wants to go to [place], ERP notified. 15:16 Reassessment: Pt left ED w/ family. ph Vital Signs: 13:38 BP 113 / 71; Pulse 66; Resp 21; Temp 97.9(O); Pulse Ox 96% on R/A; MAP 84 mmHg; Weight tm6 92.99 kg; Height 5 ft. 2 in. ; 14:53 BP 94 / 51; Pulse 61; Pulse Ox 96% on R/A; MAP 65 mmHg; ph 13:38 Body Mass Index 37.49 (92.99 kg, 157.48 cm) tm6 Brenda Coma Score: 13:48 Eye Response: spontaneous(4). Motor Response: obeys commands(6). Verbal Response: tm6 oriented(5). Total: 15. ED Course: 13:38 Patient arrived in ED. tm6 13:40 Triage completed. tm6 13:42 Trent Hines MD is Attending Physician. lexie 13:48 Arm band placed on right wrist. tm6 13:48 Patient has correct armband on for positive identification. Placed in gown. Bed in low tm6 position. Call light in reach. Side rails up X2. Seizure precautions initiated. Provided Education on: use of call boyd. 13:49 Mindy Javier, RN is Primary Nurse. ph 13:56 Urinalysis w/ reflexes Sent. tm6 14:02 EKG done, by ED staff, reviewed by Trent Hines MD. tm6 14:34 XRAY Chest (1 view) In Process Unspecified. EDMS 14:34 Knee Left 3 View XRAY In Process Unspecified. EDMS 15:01 Missed attempt(s): 22 gauge in right upper arm. Bleeding controlled, band aid applied, ph catheter tip intact. Missed attempt(s): 22 gauge in right antecubital area. Bleeding controlled, band aid applied, catheter tip intact. Missed attempt(s): 20 gauge in left EJ, per DR Hines. 15:15 No provider procedures requiring assistance completed. Patient did not have IV access ph during this emergency room visit. Administered Medications: 15:16 Not Given (Patient Refused): ns 0.9% 1000 ml IV at 1000 ml once; to be given as a bolus ph over 60 minutes 15:16 Not Given (Patient Refused): [id number] mg IV at per protocol once ph Medication: 14:54 VIS not applicable for this client. tm6 Outcome: 16:01 AMA Left before signing form, ph 16:01 Condition: stable 16:01 Patient left the ED. ph Signatures: Dispatcher [employer] Trent Bearden MD MD cha Hall, Patricia, LOVE RN Bairon Sawyer RN RN tm6
--- NOTE | 2024-09-07 15:54 | EDPHYS ---
Physician Documentation [facility] Name: Mirna Celestin Age: 63 yrs Sex: Female : 1960 Arrival Date: 09/07/2024 Time: 13:25 Bed 2 Private MD: [facility] Physician Tretn Hines HPI: 09/07 15:44 This 63 yrs old Female presents to ER via EMS with complaints of Probable lexie Seizure. 15:44 The patient presents after having a single isolated seizure, that lasted an unknown lexie period of time. Character of seizure(s): Loss of consciousness: it is not known if the patient experienced loss of consciousness, Motor activity: the motor activity is unknown, Incontinence: none, Apnea: the patient did not experience apnea, Circulation: the patient did not experience evidence of pulse disturbance. Seizure onset: just prior to arrival. Context: the seizure(s) was witnessed, by no one, occurred at home. Seizure Hx: Last seizure: The patient's last seizure was approximately 4 month(s) ago. Associated injury: The patient did not suffer any apparent associated injury. EMS care: none. The patient has experienced similar episodes in the past, multiple times. Historical: - Allergies: 13:48 Codeine; tm6 13:48 Keflex; tm6 13:48 PENICILLINS; tm6 13:48 Sulfa (Sulfonamide Antibiotics); tm6 13:48 Talwin; tm6 - PMHx: 13:48 Anxiety; Arthritis; Hypertension; Seizures; tumor on pituitary; tm6 - PSHx: 13:48 None; tm6 - Immunization history:: Client reports having NOT received the Covid vaccine. - Infectious Disease History:: Denies. - Social history:: Smoking status: Patient denies any tobacco usage or history of. Patient/guardian denies using alcohol. - Family history:: not pertinent. ROS: 15:44 Constitutional: Negative for fever, chills, and weight loss, Eyes: Negative for injury, lexie pain, redness, and discharge, ENT: Negative for injury, pain, and discharge, Neck: Negative for injury, pain, and swelling, Cardiovascular: Negative for chest pain, palpitations, and edema, Respiratory: Negative for shortness of breath, cough, wheezing, and pleuritic chest pain, Abdomen/GI: Negative for abdominal pain, nausea, vomiting, diarrhea, and constipation, Back: Negative for injury and pain, : Negative for injury, bleeding, discharge, and swelling, MS/Extremity: Negative for injury and deformity, Skin: Negative for injury, rash, and discoloration, Psych: Negative for depression, anxiety, suicide ideation, homicidal ideation, and hallucinations, Allergy/Immunology: Negative for hives, rash, and allergies, Endocrine: Negative for neck swelling, polydipsia, polyuria, polyphagia, and marked weight changes, Hematologic/Lymphatic: Negative for swollen nodes, abnormal bleeding, and unusual bruising, 15:44 Neuro: Positive for seizure activity, Exam: 15:44 Constitutional: This is a well developed, well nourished patient who is awake, alert, lexie and in no acute distress. Head/Face: Normocephalic, atraumatic. Eyes: Pupils equal round and reactive to light, extra-ocular motions intact. Lids and lashes normal. Conjunctiva and sclera are non-icteric and not injected. Cornea within normal limits. Periorbital areas with no swelling, redness, or edema. ENT: Nares patent. No nasal discharge, no septal abnormalities noted. Tympanic membranes are normal and external auditory canals are clear. Oropharynx with no redness, swelling, or masses, exudates, or evidence of obstruction, uvula midline. Mucous membranes moist. Neck: Trachea midline, no thyromegaly or masses palpated, and no cervical lymphadenopathy. Supple, full range of motion without nuchal rigidity, or vertebral point tenderness. No Meningismus. Chest/axilla: Normal chest wall appearance and motion. Nontender with no deformity. No lesions are appreciated. Cardiovascular: Regular rate and rhythm with a normal S1 and S2. No gallops, murmurs, or rubs. Normal PMI, no JVD. No pulse deficits. Respiratory: Lungs have equal breath sounds bilaterally, clear to auscultation and percussion. No rales, rhonchi or wheezes noted. No increased work of breathing, no retractions or nasal flaring. Abdomen/GI: Soft, non-tender, with normal bowel sounds. No distension or tympany. No guarding or rebound. No evidence of tenderness throughout. Back: No spinal tenderness. No costovertebral tenderness. Full range of motion. Female : Normal external genitalia. Skin: Warm, dry with normal turgor. Normal color with no rashes, no lesions, and no evidence of cellulitis. MS/ Extremity: Pulses equal, no cyanosis. Neurovascular intact. Full, normal range of motion. Neuro: Awake and alert, GCS 15, oriented to person, place, time, and situation. Cranial nerves II-XII grossly intact. Motor strength 5/5 in all extremities. Sensory grossly intact. Cerebellar exam normal. Normal gait. Psych: Awake, alert, with orientation to person, place and time. Behavior, mood, and affect are within normal limits. 15:44 ECG was reviewed by the Attending Physician. Vital Signs: 13:38 BP 113 / 71; Pulse 66; Resp 21; Temp 97.9(O); Pulse Ox 96% on R/A; MAP 84 mmHg; Weight tm6 92.99 kg; Height 5 ft. 2 in. ; 14:53 BP 94 / 51; Pulse 61; Pulse Ox 96% on R/A; MAP 65 mmHg; ph 13:38 Body Mass Index 37.49 (92.99 kg, 157.48 cm) tm6 Brenda Coma Score: 13:48 Eye Response: spontaneous(4). Motor Response: obeys commands(6). Verbal Response: tm6 oriented(5). Total: 15. MDM: 13:42 Patient medically screened. lexie 15:47 Differential diagnosis: cerebral vascular accident, cardiac arrhythmia, seizure. Data lexie reviewed: vital signs, nurses notes, lab test result(s), EKG, radiologic studies. Consideration of Admission/Observation Escalation of care including admission/observation considered. I considered the following discharge prescriptions or medication management in the emergency department Medications were administered in the Emergency Department. See MAR. Independent interpretation of the following test(s) in the Emergency Department EKG: See my EKG interpretation above. Test considered but Not performed: Labs: pt refused more iv attenpts. Historians other than the Patient: Spouse/Significant Other: daughter, . Care significantly affected by the following chronic conditions: Hypertension, Obesity, anxiety, seizure, piturary tumor. Counseling: I had a detailed discussion with the patient and/or guardian regarding the historical points, exam findings, and any diagnostic results supporting the discharge/admit diagnosis, the need for outpatient follow up, for definitive care, an product development chemist, a neurologist. 09/07 13:43 Order name: Urinalysis w/ reflexes lexie 10/10 14:40 Order name: Urine Culture [facility] 09/07 13:43 Order name: XRAY Chest (1 view) [facility] 09/07 13:43 Order name: Knee Left 3 View XRAY [facility] 09/07 13:43 Order name: EKG; Complete Time: 13:44 [facility] 09/07 13:43 Order name: Cardiac monitoring; Complete Time: 13:50 [facility] 09/07 13:43 Order name: EKG - Nurse/Tech; Complete Time: 14:02 [facility] 09/07 13:43 Order name: IV Saline Lock [facility] 09/07 13:43 Order name: Labs collected and sent [facility] 09/07 13:43 Order name: O2 Per Protocol; Complete Time: 13:50 [facility] 09/07 13:43 Order name: O2 Sat Monitoring; Complete Time: 13:50 [facility] 09/07 13:43 Order name: Seizure Precautions lexie EC:44 Rate is 53 beats/min. Rhythm is regular. QRS [place] is Normal. MS interval is normal. QRS lexie interval is normal. QT interval is normal. No Q waves. T waves are Normal. No ST changes noted. Clinical impression: Sinus bradycardia and No evidence of ischemia. Interpreted by me. Reviewed by me. Administered Medications: 15:16 Not Given (Patient Refused): ns 0.9% 1000 ml IV at 1000 ml once; to be given as a bolus ph over 60 minutes 15:16 Not Given (Patient Refused): [id number] mg IV at per protocol once ph Disposition Summary: 09/07/24 15:53 Left Against Medical Advice Notes: Location: Home lexie Problem: an acute exacerbation lexie Symptoms: have improved lexie Condition: Undetermined lexie Diagnosis - Epileptic seizures related to external causes, not intractable lexie Followup: lexie - With: Emergency Department - When: Upon discharge from the Emergency Department - Reason: Recheck today's complaints, Re-evaluation by your physician Followup: lexie - With: Private Physician - When: Upon discharge from the Emergency Department - Reason: Recheck today's complaints, Re-evaluation by your physician Signatures: Dispatcher [employer] Trent Bearden MD MD cha Masterson, Tawney RN RN tm6 Mindy Javier RN ph Corrections: (The following items were deleted from the chart) 13:44 13:44 BASIC METABOLIC PANEL+C.LAB.BRZ ordered. [facility] 13:44 13:44 CBC+H.LAB.BRZ ordered. EDMS EDMS 13:44 13:44 HEPATIC FUNCTION+C.LAB.BRZ ordered. EDMS EDMS :44 13:44 MAGNESIUM+C.LAB.BRZ ordered. EDMS EDMS :44 13:44 PROBNP+C.LAB.BRZ ordered. EDMS EDMS : 13:44 PROTIME (+INR)+COAG.LAB.BRZ ordered. EDMS EDMS : 13:44 Troponin High Sensitivity+C.LAB.BRZ ordered. EDMS EDMS 13:44 13:44 Urinalysis+U.LAB.BRZ ordered. EDMS EDMS
[2024-09-07 16:51] VITALS: TEMP 97.9; O2SAT 96
[2024-09-07 16:53] VITALS: BP 94/51
--- NOTE | 2024-09-08 14:08 | EKG ---
Test Date: 2024-09-07 Test Time: 14:00:42 Air Brakes Inspector: KARLOS MEASUREMENT RESULTS: Intervals: Rate: 53 CO: 178 QRSD: 84 QT: 486 QTc: 456 [place]: P: 28 CO: 178 QRS: 4 T: 21 INTERPRETIVE STATEMENTS: Sinus bradycardia Otherwise normal ECG Compared to ECG 12/15/2023 14:06:14 No significant changes Electronically Signed On 09-08-24 14:07:05 CDT by Justice Rios
== END 2024-09-07 16:01 | disposition left against medical advice (07) ==
LOC: ER 13:25
DX: G40.509 Epileptic seizures related to external causes, not intractable, without status epilepticus (principal); I10 Essential (primary) hypertension; F41.9 Anxiety disorder, unspecified
CPT/HCPCS: 93005; 87088; 81001; 87086; 87077; 87186; 71045; 73562; J1953; J7030